=== PATIENT | female | born 1975 | race African-American/Black ===

== ENCOUNTER 2016-11-25 10:09 | Inpatient (IN) ==
--- NOTE | 2016-11-25 10:30 | Emergency Department Note ---
Jordon Hsieh Brooke, am scribing for, and in the presence of, Eze Singh MD 10:25 . Samantha Hsieh James D, MD, personally performed the services described in this documentation, ascribed by Clara Ruvalcaba in my presence, and it is both accurate and complete . Arrival - Arrival Chief Complaint: Neuro Stated Complaint: possible stroke/slurred speech ED Nursing Triage Note: Pt c/o hands drawing up and "tingling" all over since yesterday. Pt very anxious and will not sit still at traige. Mode of Arrival: Wheelchair Limitations: Altered Mental Status Source: Patient, RN Notes Reviewed Time Seen by Provider: 11/25/16 10:19 - History of Present Illness HPI Narrative: Patient is a 41 year old female, who will answer my questions, but triage reports her complaint is "hands drawing up and tingling" for the past two days. Patient is breathing heavily and diaphoretic. Patient has PMHx of HTN, DVT, asthma, and pulmonary embolism. At 1215 the patient began taking to me when she stated that she had to go "Pee" . The patient admits that she stopped taking her Xarelto last week "when her period came on". Onset (ago): day(s) (2) Consistency: constant Severity: mild Date of Last Menstrual Period: last wk Allergies/Adverse Reactions: Allergies Allergy/AdvReac Type Severity Reaction Status Date / Time No Known Allergies Allergy Unverified 09/18/16 09:58 Home Medications: Home Medications Medication Instructions Recorded Confirmed Type Allopurinol 100 mg PO DAILY 11/25/16 11/25/16 History Ferrous Sulfate 325 mg PO DAILY 11/25/16 11/25/16 History Furosemide Tab [Lasix Tab] 40 mg PO BID DIURETIC 11/25/16 11/25/16 History Potassium Chloride Cap/Tab [K Dur] 20 meq PO DAILY 11/25/16 11/25/16 History Rivaroxaban [Xarelto] 20 mg PO DAILY 11/25/16 11/25/16 History oxyCODONE/ACETAMINOPHEN 5-325 1 tablet PO TID 11/25/16 11/25/16 History [Percocet 5-325] Review of System - Review of System ROS unobtainable: other (Will not respond to questions) - Review of System Constitutional: Present: diaphoresis. Absent: fever Musculoskeletal: Present: other (hands "drawing up and tingling") Medical,Surgical,& Family Hx - Medical History Cardio: History of: Hypertension, Cardiovascular Problems (LLE DVT 2013) Respiratory: History of: Asthma, Pulmonary Embolism - Social History Smoking Status: Never smoker Exam Vital Signs: Vital Signs Temperature 97.3 F L 11/25/16 13:12 Pulse Rate 125 H 11/25/16 13:12 Respiratory Rate 22 11/25/16 13:12 Blood Pressure 129/77 11/25/16 13:12 O2 Sat by Pulse Oximetry 100 11/25/16 10:09 GENERAL: This is a well-nourished well-developed morbidly obese black female in no apparent distress. VITAL SIGNS: Reviewed HEENT: Head is atraumatic and normocephalic. Pupils are equal round react to light. Extraocular movements are intact. Oropharynx is benign with moist mucous membranes. NECK: Neck is soft and supple without tenderness. There are no masses. There is no lymphadenopathy. LUNGS: Lungs are clear to auscultation. Chest rises symmetrically. There is no chest wall tenderness. CV: Heart is regular rate and rhythm without murmurs rubs or gallops. ABDOMEN: Abdomen is soft, nontender to palpation. There are no abdominal abnormal masses palpated. There is no organomegaly. Bowel sounds are present and active. SKIN: Diaphoretic. No rash. EXTREMITIES: Patient has full range of motion without tenderness. There is no pedal edema. NEUROLOGIC: Awake. Cranial nerves II through XII are grossly intact. Will not cooperate with motor exam. Carpal pedal spasm is present. Deep tendon reflexes are 2+ and bilaterally equal. Course Course Narrative: Patient will be taken to the [facility] for EKOS. - Consultations Consultation #1: Discussed with hospitalist. Patient will be admitted to their service. Time: 12:27 Results - Labs CBC & BMP: 11/25/16 10:47 11/25/16 10:47 Lab Results: I have reviewed the patients labs Labs: Laboratory Tests 11/25/16 11:13 ABG pH 7.516 H ABG pCO2 36.7 ABG pO2 176.0 H ABG HCO3 30.3 H ABG Total CO2 27.3 H ABG O2 Saturation 99.3 ABG Base Excess 6.4 H - EKG EKG results: interpreted by ERMD - Impressions EKG: Sinus tachycardia with a rate of 112, nonspecific ST-T wave changes. Normal axis. - Diagnostic Findings Procedure: Chest x-ray: image reviewed by me (No infiltrates, no pleural effusions.), CT - chest: image reviewed by me, report reviewed by me (Bilateral pulmonary emboli. Right mainstem pulmonary embolus. Left lower lobe pulmonary embolus.) Disposition Clinical Impression: Pulmonary thromboembolism, Noncompliance with Xarelto, Morbid obesity, Microcytic anemia Case discussed with: patient Disposition: Still a Patient Condition: Stable Time of Disposition: 12:21
--- NOTE | 2016-11-25 10:51 | EKG Report ---
Stationary ECG Study [facility] ER Test Date: 11/25/2016 10:39:38 AM Pat Name: GIANCARLO SAM Department: Room: Gender: F Air Dispatcher: NOHELIA Hyman : 1975 Requested by: Eze Inman Order Number: [id number] Meghan MD: SHARIF SAM Intervals [place] Rate: 112 P: 56 [place]: 135 QRS: 14 QRSD: 75 T: 33 QT: 346 QTc: 412 Interpretive Statements SINUS TACHYCARDIA MODERATE ST DEPRESSION Electronically Signed On 11-25-16 16:33:35 CDT by SHARIF SAM [email or web address]
[2016-11-25 11:00] LABS: Basophils % 0.3 % (0.0-0.8); Eosinophils % 0.7 % (0.00-10.9); Hematocrit 28.7 VOL% (35.7-47.0); Hemoglobin 9.5 GM/DL (12.0-16.0); Immature Granulocytes % 0.3 %; Immature Granulocytes Absolute 0.01 #; Lymphocytes % 35.4 % (21.3-54.2); Mean Corpuscular HGB Conc 33.1 GM/DL (32-36); Mean Corpuscular Hemoglobin 26 PG (27-34); NRBC # 0.02 10*3/uL; Neutrophils # 1.8 10*3/uL (1.4-7.4); Neutrophils % 62.3 % (38.7-73.9); Platelet Count 127 T/CUMM (130-400); Red Blood Count 3.68 MC/CUMM (3.8-5.5); Red Cell Distribution Width 28.3 % (9.3-17.3); White Blood Count 2.9 T/CUMM (4-12)
[2016-11-25 11:18] LABS: ABG Base Excess 6.4 MMOL/L (-2.5-2.5); ABG HCO3 30.3 MMOL/L (20-26); ABG Oxygen Saturation 99.3 % (95-100); ABG PCO2 36.7 MM HG (35-48); ABG PH 7.516 (7.35-7.45); ABG TCO2 27.3 MMOL/L (23-27)
[2016-11-25 11:20] LABS: Hypochromasia 1+; Lymphocytes 33 % (20-55); Microcytosis 1+; Ovalocytes Few; Segmented Neutrophils 65 % (50-85); Total Cells Counted 100
[2016-11-25 11:21] LABS: Platelet Estimate Adequate; Target Cells Slight
[2016-11-25 11:22] LABS: INR 1.4; PT Patient Result 14.8 SECS; Partial Thromboplastin Time 29.4 SECS (0-40)
--- NOTE | 2016-11-25 11:23 | XRay Report ---
XR chest 1V portable Indication: Shortness of breath Comparison: Chest x-ray 10/26/2016 Technique: Portable AP chest was performed. Findings: The heart size appears within normal limits. Pulmonary vasculature demonstrates no specific abnormality. Hilar structures demonstrate fairly symmetric appearance. The lungs appear clear. Bones and soft tissues demonstrate no evidence of acute pathology. No change in surgical clips at the GE junction is suggested. Impression: 1. No evidence of acute pathology. 11/25/2016 11:20 AM PROCEDURE INTERPRETED AT [facility] DEPARTMENT OF RADIOLOGY Final Report Signed by: Dr. Scott Joyce
[2016-11-25 11:30] LABS: Calcium 6.5 MG/DL (8.5-10.1); Osmolality,Calculated 275.7 MOS/KG (273-304)
[2016-11-25] MEDS ORDERED: ENOXAPARIN 120 MG/0.8 ML SYRINGE SUBCUT STA (12:16)
--- NOTE | 2016-11-25 12:21 | CT Report ---
CT chest PE study Indication: Shortness of breath Comparison: None. Technique: CT of the chest was performed following the administration of intravenous contrast. In addition to multiple contiguous axial source images obtained from the thoracic inlet through the upper abdomen, coronal and sagittal MPR series were performed as were thin slab MIP reconstructions in the coronal and sagittal plane. The CT examination was performed using one or more of the following dose reduction techniques: Automatic exposure control, adjustment of the mA and kV according to patient size, or iterative reconstruction techniques. Findings: Pulmonary artery emboli are demonstrated within the distal aspect of the right main pulmonary artery extending into the right upper lobe lobar branch with additional nonoccluding tube occluding thrombus noted within the left lower lobe lobar pulmonary artery extending into multiple segmental branches. No other distinct emboli can be identified. There is no evidence of right ventricular strain. Moderate hiatal hernia is present. Multiple surgical clips are present at the GE junction. The aorta demonstrates normal 3 vessel arch anatomy. The heart size is borderline. No adenopathy is noted within the axilla, january, or mediastinum. Lungs are clear. Imaged bony structure of the chest is intact. Soft tissues and musculature of the chest wall as well as visualized portion of the upper abdomen demonstrate no evidence of acute pathology. Gallbladder is surgically absent. Impression: 1. Bilateral pulmonary artery emboli are present as detailed. These findings were discussed with Dr. Singh at 1217 hours, dated the exam. 2. Other nonacute findings are present as detailed. 11/25/2016 12:14 PM PROCEDURE INTERPRETED AT [facility] DEPARTMENT OF RADIOLOGY Final Report Signed by: Dr. Scott Joyce
[2016-11-25] MEDS ORDERED: ENOXAPARIN 120 MG/0.8 ML SYRINGE SUBCUT ONE (12:31)
[2016-11-25] MEDS ORDERED: POTASSIUM CHLORIDE 20 MEQ TABLET PO STA (12:31)
[2016-11-25 12:42] LABS: Barbiturates Screen,Urine Negative (Negative); Benzodiazepines Screen,Urine Negative (Negative); Cannabinoid Screen,Urine Negative (Negative); Opiate Screen,Urine Negative (Negative); Phencyclidine Screen,Urine Negative (Negative)
[2016-11-25] MEDS ORDERED: POTASSIUM CHLORIDE 20 MEQ TABLET PO ONE ×2 (12:51→21:00)
--- NOTE | 2016-11-25 13:09 | Ultrasound Report ---
US venous doppler LE BI Indication: Pulmonary artery embolus. Comparison: CT chest same date Technique: Using a transcutaneous probe, grayscale, spectral Doppler, and color Doppler images of the bilateral lower extremity venous structures were captured and stored. Grayscale images prior to and following compression were obtained. Interrogated venous structures include the bilateral common femoral vein, superficial femoral vein (proximal, mid, and distal), and popliteal vein. Findings: Thrombus is demonstrated within the left peroneal vein and propagates in a cephalad manner to involve the left popliteal vein. Otherwise, no thrombus is present within the lower extremities. the interrogated venous segments demonstrate presence of both color flow and spectral flow. Impression: 1. Thrombus within the left peroneal vein and popliteal vein as detailed. 11/25/2016 1:03 PM PROCEDURE INTERPRETED AT [facility] DEPARTMENT OF RADIOLOGY Final Report Signed by: Dr. Scott Joyce
[2016-11-25] MEDS ORDERED: ENOXAPARIN 30 MG/0.3 ML SYRINGE IV ONE (13:10)
[2016-11-25] MEDS ORDERED: guaiFENesin/DM ER 600-30 MG TABLET PO PRN (13:11)
[2016-11-25] MEDS ORDERED: DOCUSATE SODIUM 100 MG CAPSULE PO PRN (13:11)
[2016-11-25] MEDS ORDERED: diphenhydrAMINE CAP 25 MG CAPSULE PO PRN (13:11)
[2016-11-25] MEDS ORDERED: ACETAMINOPHEN 325 MG TABLET PO PRN (13:11)
[2016-11-25] MEDS ORDERED: ONDANSETRON 4 MG/2 ML VIAL IV PRN (13:11)
[2016-11-25] MEDS ORDERED: LORazepam 2 MG/1 ML VIAL IV PRN (13:15)
[2016-11-25] MEDS ORDERED: LORazepam 2 MG/1 ML VIAL ONE (13:52)
[2016-11-25] MEDS ORDERED: HEPARIN/NACL 0.9% 2 UNITS/ML 1,500 ML IV ONE (14:01)
[2016-11-25] MEDS ORDERED: HYDROmorphone 2 MG/1 ML VIAL ONE (14:01)
[2016-11-25] MEDS ORDERED: LIDOCAINE 1% 20 ML VIAL ONE (14:02)
[2016-11-25] MEDS ORDERED: MIDAZOLAM 2 MG/2 ML VIAL ONE (14:02)
[2016-11-25] MEDS ORDERED: HEPARIN 5,000 UNIT/1 ML VIAL ONE (14:02)
--- NOTE | 2016-11-25 14:05 | Cardiology Progress Note ---
Cardiology - PN: Subj Interval history: Cardiology consult 41-year-old woman with increasing shortness of breath and weakness. The patient is tachypneic and tachycardic. CT the chest shows bilateral pulmonary emboli. The patient is a history of right leg DVT 3 years ago and has been on Xarelto. She stopped it lab she has her periods, and she stopped the medication 1 week ago. Venous Doppler today shows mobile peroneal and popliteal vein DVT. EKG shows sinus tachycardia with preserved airways and ST- T wave changes. The patient has hypertension takes Lasix 40 mg twice daily. She also has iron deficiency anemia. Hemoglobin 9.5 MCV 78. She takes ferrous sulfate 325 mg daily. No history of diabetes. No history of stroke. Lifetime non-smoker. She has a rare social drinker only. She is 4 feet 11 inches tall 268 pounds. Weight is been stable. She sleeps on 2 pillows and has nocturia 2 or 3 times every night which is chronic. The patient does have restless legs and daytime sleepiness. She snores loudly. Obstructive sleep apnea suspected. Her mother had hypertension and diabetes and in her mid 60s. Her father is 66 years old and has hypertension and emphysema. Her sister is 46 and has hypertension. Her brother is 34 and has hypertension and diabetes. Another brother from colon cancer age 44. Surgeries include 4, laparoscopically cystectomy and left arm surgery. No allergies. Initial lab data White count 2.9 hemoglobin 9.5 hematocrit 28.7 MCV 78 Sodium 138 potassium 3.0 chloride 97 CO2 28 BUN 6 creatinine 1.10 glucose 154 Negative urine drug screen O2 sat is 96% on 2 L cannula. Respirations are 24. The pulse is 120. Blood pressure 130 /92. She is anxious and in respiratory distress. Flat neck veins. No carotid bruit. Decreased breath sounds but no wheezing or rales. Rhythm is tachycardic. No murmur or rub. Abdomen obese soft benign. Femoral pulses 2+ without bruits of pulses are 2+ no edema Impression Bilateral pulmonary emboli with tachypnea tachycardia and dilated right ventricle by CTA History of DVT right leg 3 years ago on Xarelto. Patient stopped Xarelto 1 week ago for her period. Obstructive sleep apnea suspected Hypertension Hypokalemia 3.0 due to diuretics Iron deficiency anemia MCV 78 hemoglobin 9.5 patient is taking ferrous sulfate 325 mg daily Morbid obesity 4 feet 11 inches tall, 268 pounds Status post laparoscopically cholecystectomy History right leg DVT 2013 Left leg DVT involving the peroneal and popliteal veins today Plan EKOS bilateral pulmonary catheter with TPA infusion. Procedure, risk benefit reviewed with patient and with her sister with nurse Rudolph present for the entire discussion. All questions answered. She agrees to proceed as outlined. Replace potassium Echo Doppler Supplemental O2 as needed Will need outpatient sleep study evaluation Exam (Progress Note) - Constitutional Vitals: Period Temp Pulse Resp BP Sys/Masterson Pulse Ox Last 24 Hr 97.3 F 125 22 129/77 Result/EKG - Labs CBC & BMP: 11/25/16 10:47 11/25/16 10:47 Quality Measures - VTE Contraindication to Mechanical VTE Prophylaxis: Current Diagnosis of DVT - Stroke Onset of Symptoms Date: 11/25/16
--- NOTE | 2016-11-25 14:18 | Hospitalist History & Physical ---
Assessment and Plan - Time spent with patient Time spent with patient: Greater than 30 minutes (1) Pancytopenia Status: Acute Assessment and plan: Ms. Del Cid is a 5-year-old morbidly obese -Turkmen female with history of hypertension, anxiety, and DVT on Xarelto admitted by the hospitalist service with bilateral pulmonary embolisms and new left lower extremity DVT. Patient is tachycardic and tachypneic. She has received 1 dose of weight-based Lovenox and 30 mg of IV Lovenox have been ordered preprocedure. Dr. macias has already seen and examined patient and will be taking her to the [facility] for Ekos. Patient will go to the ICU following procedure. Will restart her home medicines and continue to watch her response to therapy. Dr. Carpio has seen and examined patient and further recommendations to follow. Current Visit: Yes (2) Hypertension Status: Acute Current Visit: Yes (3) Hyperglycemia Status: Acute Current Visit: Yes (4) Left leg DVT Status: Acute Current Visit: Yes (5) Anxiety Status: Acute Current Visit: Yes (6) Pulmonary thromboembolism Status: Acute Current Visit: Yes (7) Morbid obesity Status: Acute Current Visit: Yes (8) Microcytic anemia Status: Acute Current Visit: Yes History of Present Illness Chief complaint: Shortness of breath History of present illness: Ms. Del Cid is a 41 year old female with history of hypertension, iron deficiency anemia, gout, and lower extremity DVT on Xarelto presenting to the ED with numbness and tingling of bilateral hands and shortness of breath. Patient states she has been taking Xarelto for 3 years for a lower extremity DVT that she states was in her right leg. Dr. Guthrie is her PCP and has been managing this. Patient was just here in the ED in September with a gouty flareup and Dopplers at that time showed no DVTs. Patient states off and on for the last week she has had intermittent shortness of breath but the numbness and tingling in her hands started last night. She feels like she has been hyperventilating off and on. She also states for the last few weeks she has had intermittent swelling and pain in the left lower extremity. Patient states she stopped her Xarelto last week because she had started her cycle. She states she does this every month because the Xarelto causes heavy bleeding. Patient complains of intermittent headaches, two-pillow orthopnea, and snoring. Patient denies chest pain, dysphagia, abdominal pain, constipation or diarrhea. Patient is tachycardic and tachypneic with stable blood pressure. WBCs 2.9, RBC 3.68, platelets 127, creatinine 1.1, glucose 154, and her tox screen is negative. CT of the chest shows bilateral pulmonary artery emboli and venous Doppler shows a thrombus within the within the left peroneal vein and popliteal vein. Patient's case was discussed with Dr. Singh the ED physician and Dr. Carpio the admitting hospitalist and it was agreed patient would be admitted for further evaluation and treatment. Home Medications Medication Instructions Recorded Confirmed Type Allopurinol 100 mg PO DAILY 11/25/16 11/25/16 History Ferrous Sulfate 325 mg PO DAILY 11/25/16 11/25/16 History Furosemide Tab [Lasix Tab] 40 mg PO BID DIURETIC 11/25/16 11/25/16 History Potassium Chloride Cap/Tab [K Dur] 20 meq PO DAILY 11/25/16 11/25/16 History Rivaroxaban [Xarelto] 20 mg PO DAILY 11/25/16 11/25/16 History oxyCODONE/ACETAMINOPHEN 5-325 1 tablet PO TID 11/25/16 11/25/16 History [Percocet 5-325] Allergies Allergy/AdvReac Type Severity Reaction Status Date / Time No Known Allergies Allergy Unverified 09/18/16 09:58 Medical,Surgical,& Family Hx - Medical History Cardio: History of: Hypertension, Cardiovascular Problems (LLE DVT 2013) Respiratory: History of: Asthma, Pulmonary Embolism - Surgical History Abdominal Surgeries: Surgical HX of: Cholecystectomy Reproductive Surgeries: Surgical HX of;: Section - Family History Family History: Reports;: Family Diabetes, Family Heart Disease - Social History Smoking Status: Never smoker Frequency of Alcohol Use: Rarely Type of Drug Use: None Marital Status: Single Lives With:: Children Functional capacity: independent ambulation Review of systems: Complete 10 system review of systems was obtained and pertinent positives and negatives per HPI Exam - Constitutional Vitals: Period Temp Pulse Resp BP Sys/Masterson Pulse Ox Last 24 Hr 97.3 F-97.3 F 125-125 22-22 129-129/77-97 100 Exam: Constitutional System: Moderate distress. No tremulousness. Head: Normocephalic, atraumatic. Ears, Nose and Throat System: No evidence of Otitis or Mastoiditis. No epistaxis or discharge Eyes System: Pupils equal, round, and reactive. Extraocular muscles intact. Neck: Supple, without adenopathy, No jugular venous distention. No thyromegaly, neck mass, or prior surgery apparent. Respiratory System: Chest clear to auscultation. Cardiovascular System: Heart with tachycardic rate and rhythm. No murmur. GI System: Abdomen soft, nontender. Normo active bowel sounds present. Musculoskeletal System: limbs with no pedal edema. Inability to palpate due to soft tissue distal pulses. Neurological System: No discernable sensory deficit. No aphasia Psychiatric System: Conversation is rational, patient is visibly upset and crying Results - Labs CBC & BMP: 11/25/16 10:47 11/25/16 10:47 Lab Results: I have reviewed the past 24 hour labs - EKG EKG results: sinus rhythm EKG shows: tachycardia - Impressions Moderate ST depression - Diagnostic Findings Procedure: Chest x-ray: report reviewed by me (No acute pathology), CT - chest: report reviewed by me (Bilateral pulmonary artery emboli), Ultrasound: report reviewed by me (Thrombus within the left peroneal vein and popliteal vein) Quality Measures - VTE Contraindication to Mechanical VTE Prophylaxis: Current Diagnosis of DVT - Stroke Onset of Symptoms Date: 11/25/16
--- NOTE | 2016-11-25 14:54 | History and Physical Update ---
Sedation H&P Update - History and Physical H&P was reviewed, the patient examined and there: are no changes in the patients condition since last H&P was completed. - Dictation Physical: refer to H&P completed by admitting physician - Physical Exam Mental Status: alert and oriented Heart: regular rate and rhythm Lung: clear to auscultation Abdomen: within normal limits Vitals: within normal limits - Sedation Plan for Sedation: moderate Patient Consent: Procedure disscussed with patient and patinet has consented., Risks and benefits were discussed with patient,including infection,, bleeding, injury to surrounding structures, seizure, temporary nerve, Patient understands and accepts potential risks/benefits and agrees to, proceed. ASA Class: II Airway Assessment: Class II: Soft palate, uvula, fauces visible
[2016-11-25] MEDS ORDERED: ALTEPLASE 2 MG VIAL ONE (14:56)
[2016-11-25] MEDS ORDERED: SODIUM CHLORIDE 0.9% 1,000 ML IV SCH ×2 (15:00)
[2016-11-25] MEDS ORDERED: ALTEPLASE 12 MG in SODIUM CHLORIDE 0.9% 240 ML INTRACATH SCH (15:00)
[2016-11-25] MEDS ORDERED: ALTEPLASE 12 MG in SODIUM CHLORIDE 0.9% 240 ML IV SCH (15:00)
--- NOTE | 2016-11-25 15:07 | Event Note ---
Event note Ekos bilateral pulmonary artery catheters with localized TPA infusion Pre-op diagnosis bilateral pulmonary emboli with tachycardia, tachypnea, dilated right ventricle Postop diagnosis same. Description of procedure The patient has a history of right leg DVT 2013 and has been on Xarelto. She stopped Xarelto 1 week ago. SHe presented with acute shortness of breath and exercise intolerance. CTA chest showed bilateral pulmonary emboli and a mobile DVT in the left peroneal and popliteal veins. The right groin was prepped and draped in sterile fashion and local anesthesia was achieved by infiltration 1% Xylocaine. Using a Cook needle the right femoral vein was cannulated and 2 separate venous sheaths were inserted. Over a long exchange guidewire a pigtail catheter introduced and advanced out into the right pulmonary artery. The catheter exchanged for a 6 Maltese EKOS catheter and the ultrasonic cath was then introduced into the right pulmonary artery. The side ports were connected to normal saline coolant and TPA infusion. Using the pigtail catheter and the long exchange wire the left pulmonary artery was then cannulated and a EKOS catheter was placed into the left pulmonary artery followed by the ultrasonic catheter. The side ports were again connected to coolant and TPA infusion. Both catheters were in excellent position. The venous lines were sutured in place. Blood pressure 113/82 O2 sat is 99 on 6 L cannula and the pulse is 89 in sinus at the conclusion of the procedure. The patient was transported to CCU in guarded condition. Plan 12 hour TPA infusion Routine blood work ordered Restart Xarelto tomorrow Findings and plan discussed with her sister Sravanthi and several family members.
[2016-11-25] MEDS ORDERED: ONDANSETRON 4 MG/2 ML VIAL ONE (15:27)
[2016-11-25] MEDS: FERROUS SULFATE 325 MG TABLET PO SCH (16:14)
[2016-11-25] MEDS: SODIUM CHLORIDE 0.9% 1,000 ML IV SCH ×2 (16:14→23:52)
[2016-11-25] MEDS: POTASSIUM CHLORIDE 20 MEQ TABLET PO SCH (16:14)
[2016-11-25] MEDS: ALLOPURINOL 100 MG TABLET PO SCH (16:14)
[2016-11-25] MEDS: PANTOPRAZOLE 40 MG TABLET PO SCH (16:14)
[2016-11-25] MEDS: SODIUM CHLORIDE 0.45% 1,000 ML IV SCH (16:15)
--- NOTE | 2016-11-25 16:25 | ECHO Report ---
Cindi Del Cid Exam Date: 11/25/2016 13:36 Referring Physician: Technologist: Cira Novak EWELINA Age: 41 Ht (in): 69 Wt (lb): 280 Gender: F Exam Location: [facility] Echo Indications: Bilateral PE, Essential (primary) hypertension BP: 133 / 87 HR: 82 Rhythm: Sinus Technical Quality: Fair IMPRESSIONS EF 55-60 % . Grade I/IV diastolic dysfunction (abnormal relaxation filling pattern), normal to mildly elevated filling pressures. Mildly increased right ventricular size. The right atrium is mildly enlarged. The left atrium is normal in size. Morphologically normal mitral valve. No mitral valve regurgitation. The aortic valve is trileaflet and has normal motion. Trace aortic valve regurgitation. Mild tricuspid valve regurgitation. [id number]. Trace pulmonary valve regurgitation. Normal pericardium without effusion. Normal ascending aorta dimension. MEASUREMENTS (Male / Female) Normal Values 2D ECHO LV Diastolic Diameter PLAX 4.2 cm 4.2 - 5.9 / 3.9 - 5.3 cm LV Systolic Diameter PLAX 3.1 cm LV Fractional Shortening PLAX 26.1 % IVS Diastolic Thickness 0.8 cm 0.6 - 1.0 / 0.6 - 0.9 cm LVPW Diastolic Thickness 0.8 cm 0.6 - 1.0 / 0.6 - 0.9 cm RV Internal Dim ED PLAX 2.6 cm Aortic Root Diameter 3.2 cm LA Systolic Diameter LX 3.0 cm 3.0 - 4.0 / 2.7 - 3.8 cm FINDINGS Left Ventricle EF 55-60 % . Grade I/IV diastolic dysfunction (abnormal relaxation filling pattern), normal to mildly elevated filling pressures. Right Ventricle Mildly increased right ventricular size. Right Atrium The right atrium is mildly enlarged. Left Atrium The left atrium is normal in size. Mitral Valve Morphologically normal mitral valve. No mitral valve regurgitation. Aortic Valve The aortic valve is trileaflet and has normal motion. Trace aortic valve regurgitation. Tricuspid Valve Morphologically normal tricuspid valve. Mild tricuspid valve regurgitation. [id number]. Pulmonic Valve Morphologically normal pulmonic valve. Trace pulmonary valve regurgitation. Pericardium Normal pericardium without effusion. Aorta Normal ascending aorta dimension. Tommie Latricia (Electronically Signed) Final Date: 25 Nov 2016 16:24
[2016-11-25] MEDS: PROMETHAZINE 25 MG/1 ML VIAL IM PRN (16:43)
[2016-11-25] MEDS: oxyCODONE/ACETAMINOPHEN 5-325 MG TABLET PO SCH ×2 (17:15→20:14)
[2016-11-25] MEDS: FUROSEMIDE 40 MG TABLET PO SCH (17:17)
[2016-11-25 17:45] LABS: INR 1.3; PT Patient Result 14.4 SECS; Partial Thromboplastin Time 34.6 SECS (0-40)
[2016-11-25] MEDS ORDERED: FERROUS SULFATE 325 MG TABLET PO ONE (21:00)
[2016-11-25] MEDS ORDERED: FUROSEMIDE 40 MG TABLET PO ONE (21:00)
[2016-11-26] MEDS ORDERED: SODIUM CHLORIDE 0.45% 1,000 ML IV SCH (02:00)
[2016-11-26] MEDS: SODIUM CHLORIDE 0.45% 1,000 ML IV SCH (02:18)
[2016-11-26 04:33] LABS: Basophils % 0.5 % (0.0-0.8); Hematocrit 24.3 VOL% (35.7-47.0); Lymphocytes # 0.9 10*3/uL (1.4-4.0); Lymphocytes % 42.7 % (21.3-54.2); Mean Corpuscular HGB Conc 32.9 GM/DL (32-36); Mean Corpuscular Hemoglobin 26 PG (27-34); Mean Corpuscular Volume 78.9 FL (87-102); Mean Platelet Volume 10.3 FL (9.6-12.0); Neutrophils # 1.1 10*3/uL (1.4-7.4); Neutrophils % 53.8 % (38.7-73.9); Red Blood Count 3.08 MC/CUMM (3.8-5.5); Red Cell Distribution Width 28.1 % (9.3-17.3)
[2016-11-26 04:37] LABS: Platelet Count 74 T/CUMM (130-400)
[2016-11-26 04:43] LABS: INR 1.2; PT Patient Result 13.1 SECS
[2016-11-26 04:46] LABS: Partial Thromboplastin Time 32.4 SECS (0-40)
[2016-11-26 05:01] LABS: Albumin 2.8 G/DL (3.4-5.0); Magnesium 0.9 MG/DL (1.8-2.4); Osmolality,Calculated 282.8 MOS/KG (273-304); Potassium 2.8 MMOL/L (3.5-5.1); Total Protein 6.3 G/DL (6.4-8.3)
[2016-11-26 05:15] LABS: Calcium 5.5 MG/DL (8.5-10.1)
[2016-11-26] MEDS ORDERED: CALCIUM GLUCONATE 2,000 MG in SODIUM CHLORIDE 0.9% 100 ML IV ONE (05:20)
[2016-11-26 05:21] LABS: Eosinophils 3 % (0-10); Hypochromasia 1+; Lymphocytes 46 % (20-55); Microcytosis 1+; Nucleated Red Blood Cells 1 (0-5); Segmented Neutrophils 50 % (50-85); Total Cells Counted 100
[2016-11-26 05:22] LABS: Platelet Estimate Decreased; Target Cells Slight; Tear Drop Cells Slight
[2016-11-26] MEDS: POTASSIUM CHLORIDE 20 MEQ TABLET PO PRN ×4 (05:34→16:38)
[2016-11-26] MEDS: SODIUM CHLORIDE 0.9% 1,000 ML IV SCH ×6 (07:15→17:51)
[2016-11-26] MEDS ORDERED: MAGNESIUM SULF INJ 3 GM in SODIUM CHLORIDE 0.9% 100 ML IV ONE (08:57)
--- NOTE | 2016-11-26 09:10 | Hospitalist Progress Note ---
Assessment and Plan - Time spent with patient Time spent with patient: Less than 30 minutes (1) Pulmonary thromboembolism Status: Acute Assessment and plan: Patient was admitted with bilateral pulmonary thromboemboli was seen by Dr. Rome who took her to the [facility] for EKOS therapy. She is clinically improved. Will defer management to his expertise. Current Visit: Yes (2) Pancytopenia Status: Acute Assessment and plan: Patient is noted to be pancytopenic. Will consult hematology to assist. Current Visit: Yes Hospitalist: Subjective Interval history: Patient was admitted yesterday with bilateral pulmonary thromboemboli and is status post EKOS therapy. She denies any chest pain or shortness of breath this morning. Exam - Constitutional Vitals: Period Temp Pulse Resp BP Sys/Masterson Pulse Ox Last 24 Hr 96.3 F-98.4 F 84-125 13-87 95-129/56-87 97-100 General appearance: no acute distress - Head Head exam: Present: normocephalic, atraumatic - Eye Eye exam: Present: EOMI Pupils: Present: GLORIA - ENT ENT exam: Present: normal exam - Neck Neck exam: Present: normal inspection - Respiratory Respiratory exam: Present: clear to auscultation bilaterally. Absent: rales, rhonchi, stridor, wheezes - Cardiovascular Cardiovascular exam: Present: regular rate and rhythm. Absent: tachycardia - GI/Abdominal GI/Abdominal exam: Present: normal bowel sounds, soft. Absent: mass, tenderness , rebound - Extremities Exam Extremities exam: Absent: calf tenderness, edema - Neurological Exam Neurological exam: Present: alert, oriented X3, CN II-XII intact. Absent: motor sensory deficit - Psychiatric Psychiatric exam: Present: normal affect, normal mood. Absent: agitated, anxious - Skin Skin exam: Present: warm, dry. Absent: rash Results - Labs CBC & BMP: 11/26/16 04:19 11/26/16 04:19 Lab Results: I have reviewed the past 24 hour labs Quality Measures - VTE Contraindication to Mechanical VTE Prophylaxis: Current Diagnosis of DVT - Stroke Onset of Symptoms Date: 11/25/16
[2016-11-26] MEDS: PROMETHAZINE 25 MG/1 ML VIAL IM PRN (09:11)
--- NOTE | 2016-11-26 09:14 | Pulmonology Consult Note ---
History of Present Illness Chief complaint: Dyspnea and tachycardia History of present illness: Ms. Del Cid is a 41 year old female who has a history of DVT in the past about 3 years ago. She was started on anticoagulants at [facility] during that hospitalization. She relates that she also had a filter placed. She has been on Xarelto since that time. She has had excessive periods and usually stops to Xarelto during the time of her periods. 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 She had had a negative venous Doppler 2 months ago in the ER when she came in with leg pain. She has been admitted to the CCU. Dr. Rome did an EKOS TPA infusion. She is about to be started back on Xarelto. She has problems with anemia. Reviewing her lab appears that she has a pancytopenia. She does have excessive menstrual periods, she relates. Her youngest child is 8 years old she has 4 children and has no plans for any further children. I am unable to get in the assessment plan portion of the electronic health record so I will list my impressions here: 1. Bilateral pulmonary emboli with mild pulmonary hypertension. Agree with lifelong anticoagulants. This is probably due to noncompliance with Xarelto as the patient stopped it during her periods. She relates that she already has a filter in place. One would wonder how she had the pulmonary emboli but she may have developed collaterals in 3 years time. We will get an abdominal film done to be sure the filter is in the proper location. Dr. Rome was able to do a right heart cath from the right groin without difficulty. This would bring the question up as to whether there is an IVC filter in place. 2. Pancytopenia. Her white count is in the 2000s, platelet count has dropped below 100,000, and hematocrit is 28. Her MCV is low. Certainly she could have iron deficiency anemia related to excessive menstrual periods, however the pancytopenia suggests she may have another hematologic disorder causing her anemia. Recommend getting hematology to see her in the morning. 3. Morbid obesity with suspected obstructive sleep apnea. This can be evaluated later. 4. hypertension, essential. Stable on current medications. Home Medications Medication Instructions Recorded Confirmed Type Allopurinol 100 mg PO DAILY 11/25/16 11/25/16 History Ferrous Sulfate 325 mg PO DAILY 11/25/16 11/25/16 History Furosemide Tab [Lasix Tab] 40 mg PO BID DIURETIC 11/25/16 11/25/16 History Potassium Chloride Cap/Tab [K Dur] 20 meq PO DAILY 11/25/16 11/25/16 History Rivaroxaban [Xarelto] 20 mg PO DAILY 11/25/16 11/25/16 History oxyCODONE/ACETAMINOPHEN 5-325 1 tablet PO TID 11/25/16 11/25/16 History [Percocet 5-325] Allergies Allergy/AdvReac Type Severity Reaction Status Date / Time No Known Allergies Allergy Unverified 09/18/16 09:58 12 point system: reviewed and no additional remarkable complaints except as stated - Constitutional Constitutional: Present: weight gain - Cardiovascular Cardiovascular: Present: dyspnea, dyspnea on exertion, edema, palpitations - Respiratory Respiratory: Present: dyspnea, dyspnea on exertion - Genitourinary Genitourinary: Present: abnormal vaginal bleeding (She feels her periods are excessive when she is on Xarelto) - Hematologic/Lymphatic Hematologic/Lymphatic: Present: other (History of anemia) Exam (Pulmonay) H&P - Constitutional Vitals: Period Temp Pulse Resp BP Sys/Masterson Pulse Ox Last 24 Hr 96.3 F-98.4 F 84-125 13-87 95-129/56-87 97-100 Exam: Vital signs normal. Oxygen saturation 98% on nasal oxygen. Pupils react to light. Throat is clear. Neck supple no bruits. Chest is clear equal breath sounds. Heart normal rate and rhythm no murmurs no rubs no gallops. Abdomen soft nontender no masses. Extremities no clubbing cyanosis or edema. Calves nontender. Medical,Surgical,& Family Hx - Medical History Cardio: History of: Hypertension, Cardiovascular Problems (LLE DVT 2013) Psychological: History of: Anxiety Disorders, Depression No history of: Bipolar Disorder, Schizophrenia Neurology: History of: Migraine Endocrine: History of: Dyslipidemia No history of: Diabetes Mellitus (IDDM), Diabetes Mellitus (NIDDM), Thyroid Disorder, Endocrine Cancer Respiratory: History of: Asthma, Pulmonary Embolism Genitourinary: History of: Bladder Problem (Urinary frequency) - Surgical History Abdominal Surgeries: Surgical HX of: Cholecystectomy Reproductive Surgeries: Surgical HX of;: Section, Tubal Ligation - Family History Family History: Reports;: Family Diabetes, Family Heart Disease - Social History Smoking Status: Never smoker Frequency of Alcohol Use: Rarely Type of Drug Use: None Results - Labs CBC & BMP: 11/26/16 04:19 11/26/16 04:19 Lab Results: I have reviewed the past 24 hour labs - Diagnostic Findings Procedure: Chest x-ray: image reviewed by me (Chest x-ray is normal), CT - chest : image reviewed by me (PE protocol was done and shows bilateral pulmonary emboli.), Ultrasound: image reviewed by me (Venous Doppler showed DVT in the left leg.) Quality Measures - VTE Contraindication to Mechanical VTE Prophylaxis: Current Diagnosis of DVT - Stroke Onset of Symptoms Date: 11/25/16
--- NOTE | 2016-11-26 09:30 | Cardiology Progress Note ---
Cardiology - PN: Subj Interval history: Cardiology note Day 1 status post EKOS for bilateral pulmonary emboli. Telemetry shows sinus rhythm in the 80s Blood pressure 114/80 O2 sat 90% on 3 L cannula Regular rhythm no murmur or gallop Decreased breath sounds but clear Abdomen soft benign. I pulled the venous lines and held pressure for 30 minutes and applied a sandbag and pressure dressing Initial CBC showed white count 2.9 hemoglobin 9.5 MCV 78 and platelet count 127 She received Lovenox in the ER yesterday followed by localized TPA infusion White count today is 2.0 hemoglobin 8.0 hematocrit 24.3 MCV 78 and platelet count 74,000 Sodium 144 potassium 2.8 chloride 101 CO2 31 BUN 7 creatinine 0.90 BNP 2 Magnesium 0.9 calcium 5.5 Impression Bilateral pulmonary emboli, status post EKOS procedure Left leg DVT History of right leg DVT 3 years ago at [place]. Patient has been on Xarelto since that time. She stops Xarelto for her periods. And has been off Xarelto for the past week. Patient states her cycles are every month on a regular basis and that she bleeds for 3 days, usually only 1 day heavy. Hypokalemia hypomagnesemia hypocalcemia Morbid obesity 4 feet 11 inches tall, 268 pounds Status post laparoscopically cholecystectomy Hypertension Obstructive sleep apnea suspected Pancytopenia Plan Consult Dr. Tang. Replace electrolytes Consult hematology Sandbag and bedrest for now Restart Xarelto later today Exam (Progress Note) - Constitutional Vitals: Period Temp Pulse Resp BP Sys/Masterson Pulse Ox Last 24 Hr 96.3 F-98.4 F 84-125 13-87 95-129/56-87 97-100 Result/EKG - Labs CBC & BMP: 11/26/16 04:19 11/26/16 04:19 Labs: Laboratory Results - last 24 hr 11/25/16 11/26/16 11/26/16 17:26 04:19 04:19 WBC RBC Hgb Hct MCV MCH MCHC RDW Plt Count MPV Neut % (Auto) Lymph % (Auto) [place] % (Auto) Eos % (Auto) Baso % (Auto) Neut # (Auto) Lymph # (Auto) [place] # (Auto) Eos # (Auto) Baso # (Auto) Total Counted Immature Gran % Nucleated RBC % Immature Gran # Segmented Neutrophils Lymphocytes Monocytes Eosinophils Nucleated RBCs Nucleated RBCs # Platelet Estimate Hypochromasia Microcytosis Target Cells Tear Drop Cells INR 1.3 1.2 PT Patient/Control Mix 14.4 13.1 Fibrinogen 296 243 Circ Anticoag PTT 34.6 32.4 Sodium Potassium Chloride Carbon Dioxide Anion Gap BUN Creatinine GFR Calculation BUN/Creatinine Ratio Glucose Calculated Osmolality Calcium Magnesium Total Bilirubin AST ALT Alkaline Phosphatase Total Protein Albumin Globulin Albumin/Globulin Ratio 11/26/16 11/26/16 04:19 04:19 WBC 2.0 L D RBC 3.08 L Hgb 8.0 L Hct 24.3 L MCV 78.9 L MCH 26 L MCHC 32.9 RDW 28.1 H Plt Count 74 L D MPV 10.3 Neut % (Auto) 53.8 Lymph % (Auto) 42.7 [place] % (Auto) 1.0 L Eos % (Auto) 2.0 Baso % (Auto) 0.5 Neut # (Auto) 1.1 L Lymph # (Auto) 0.9 L [place] # (Auto) 0.0 L Eos # (Auto) 0.0 Baso # (Auto) 0.0 Total Counted 100 Immature Gran % 0.0 Nucleated RBC % 0.0 Immature Gran # 0.00 Segmented Neutrophils 50 Lymphocytes 46 Monocytes 1 L Eosinophils 3 Nucleated RBCs 1 Nucleated RBCs # 0.00 Platelet Estimate Decreased Hypochromasia 1+ Microcytosis 1+ Target Cells Slight Tear Drop Cells Slight INR PT Patient/Control Mix Fibrinogen Circ Anticoag PTT Sodium 144 Potassium 2.8 L Chloride 101 Carbon Dioxide 31 Anion Gap 14.8 BUN 7 Creatinine 0.90 GFR Calculation 113 BUN/Creatinine Ratio 7.00 Glucose 85 Calculated Osmolality 282.8 Calcium 5.5 L* Magnesium 0.9 L Total Bilirubin 1.00 AST 95 H ALT 30 Alkaline Phosphatase 154 H Total Protein 6.3 L Albumin 2.8 L Globulin 3.5 Albumin/Globulin Ratio 0.8 L Quality Measures - VTE Contraindication to Mechanical VTE Prophylaxis: Current Diagnosis of DVT - Stroke Onset of Symptoms Date: 11/25/16
[2016-11-26] MEDS: oxyCODONE/ACETAMINOPHEN 5-325 MG TABLET PO SCH ×3 (10:02→21:17)
[2016-11-26] MEDS: PANTOPRAZOLE 40 MG TABLET PO SCH (10:03)
[2016-11-26] MEDS: FUROSEMIDE 40 MG TABLET PO SCH ×2 (10:03→16:38)
[2016-11-26] MEDS: ALLOPURINOL 100 MG TABLET PO SCH (10:03)
[2016-11-26] MEDS: POTASSIUM CHLORIDE 20 MEQ TABLET PO SCH (10:03)
[2016-11-26] MEDS: FERROUS SULFATE 325 MG TABLET PO SCH (10:03)
[2016-11-26 10:24] LABS: Eosinophils # 0.1 10*3/uL (0.0-0.87); Eosinophils % 2.6 % (0.00-10.9); Immature Granulocytes % 0.5 %; Immature Granulocytes Absolute 0.01 #; Lymphocytes # 0.7 10*3/uL (1.4-4.0); Lymphocytes % 36.9 % (21.3-54.2); Mean Corpuscular Hemoglobin 26 PG (27-34); Mean Corpuscular Volume 81.7 FL (87-102); Monocytes % 2.1 % (1.7-12.7); Neutrophils # 1.1 10*3/uL (1.4-7.4); Neutrophils % 57.9 % (38.7-73.9); Platelet Count 64 T/CUMM (130-400); Red Blood Count 3.06 MC/CUMM (3.8-5.5); Red Cell Distribution Width 28.6 % (9.3-17.3)
[2016-11-26 10:49] LABS: Hypochromasia 1+; Lymphocytes 38 % (20-55); Segmented Neutrophils 61 % (50-85); Total Cells Counted 100
[2016-11-26 10:50] LABS: Microcytosis 1+; Platelet Estimate Decreased; Target Cells Slight
[2016-11-26 10:51] LABS: Ovalocytes Few; Tear Drop Cells Slight
[2016-11-26 11:14] LABS: Vitamin B12 506 PG/ML (211-911)
--- NOTE | 2016-11-26 11:35 | XRay Report ---
XR KUB Indication: History of IVC filter. Comparison: None. Technique: Supine AP image of the abdomen was obtained. Findings: Findings compatible given history. Tip of the filter lies at superior endplate of L2. Filter is tilted to the right approximately 30 degrees from vertical. Additional surgical clips at the GE junction and right upper quadrant demonstrated. The bowel gas pattern demonstrates no significant abnormality. Impression: 1. IVC filter is present as detailed. No active process is otherwise suggested. 11/26/2016 11:31 AM PROCEDURE INTERPRETED AT [facility] DEPARTMENT OF RADIOLOGY Final Report Signed by: Dr. Scott Joyce
[2016-11-26 11:37] LABS: Sedimentation Rate-Westergren 41 MM/HR (0-20)
--- NOTE | 2016-11-26 13:49 | Oncology Consult Note ---
History of Present Illness History of present illness: Ms. Del Cid is a 41 year old female who was admitted with pulmonary emboli and underwent treatment with TPA on November 25. She had pancytopenia on admission that was worse today. Her white cell count was 2900 with a hemoglobin of 9.5 and a platelet count of 127,000 on the morning of November 25. This morning, her white cell count 2000 with a hemoglobin of 8.0 and a platelet count that on one checked was 74,000 and over another 64,000. She has had a normal INR on 3 separate occasions, being 1.4, 1.3 and 1.2. She also has had a normal fibrinogen on November 25 296 and on November 26 at 7:59 AM it was 243. Lab work drawn on the morning of November 26 includes slightly high AST of 95 with an alkaline phosphatase of 154, a low serum albumin of 2.8, a normal B12 level 506 and a low folic acid level of 2.0. In addition, she had a low potassium of 2.8 and a low serum calcium of 5.5. A drug screen is negative. She has been on Xarelto as well as allopurinol, both of which can cause lowering of 1 or more of the blood counts Past medical history: She has no known allergies. Home Medications Medication Instructions Recorded Confirmed Type Allopurinol 100 mg PO DAILY 11/25/16 11/25/16 History Ferrous Sulfate 325 mg PO DAILY 11/25/16 11/25/16 History Furosemide Tab [Lasix Tab] 40 mg PO BID DIURETIC 11/25/16 11/25/16 History Potassium Chloride Cap/Tab [K Dur] 20 meq PO DAILY 11/25/16 11/25/16 History Rivaroxaban [Xarelto] 20 mg PO DAILY 11/25/16 11/25/16 History oxyCODONE/ACETAMINOPHEN 5-325 1 tablet PO TID 11/25/16 11/25/16 History [Percocet 5-325] Current medical problems have been outlined by Dr. Rome and they include: Bilateral pulmonary emboli, status post EKOS procedure Left leg DVT History of right leg DVT 3 years ago at [place]. Patient has been on Xarelto since that time. She stops Xarelto for her periods. And has been off Xarelto for the past week. Patient states her cycles are every month on a regular basis and that she bleeds for 3 days, usually only 1 day heavy. Hypokalemia hypomagnesemia hypocalcemia Morbid obesity 4 feet 11 inches tall, 268 pounds Status post laparoscopically cholecystectomy Hypertension Obstructive sleep apnea suspected Pancytopenia Past medical history is also positive for cholecystectomy in the past and she has had sections in the past. She has a history of gout and says that she had a gouty attack last week. Family history is negative for blood dyscrasias or bleeding disorders as far as she knows but she is not absolutely certain of this. There have been family members who had clotting problems such as coronary artery disease but to her knowledge no one has had hemophilia or any type of "free bleeding". It is positive for diabetes and heart disease. Social history: She rarely uses alcohol and has never smoked. Review of systems: Constitutional: Positive for obesity Eyes: Negative for significant eye disease or visual abnormality ENT: Negative for chronic bleeding gums or recurrent epistaxis. She does say that she has bled for as long as 2 days after having a tooth pulled but never had to go to the emergency room for it. Pulmonary: Negative for hemoptysis but obviously positive for dyspnea and pleuritic chest pain. Cardiovascular: Positive for pulmonary emboli as well as for edema of the lower extremities and dyspnea on exertion. GI: Positive for bloating and she has had a cholecystectomy. Neurologic: Negative for seizures, convulsions or paralysis. Nodes: Negative for lymphadenopathy Hematologic: Positive for anemia but negative for excessive bleeding. I am discontinuing her allopurinol. The Xarelto has already been stopped. Impression: Hypercoagulopathy that will probably require lifetime coagulation. We can check coagulation studies later. It would be unlikely to have positive results on some of them presently and if she remains on anticoagulants some of the tests would be invalid. Pancytopenia of indefinite etiology, possibly medication related or even possibly lab error. I will follow this closely. Thank you for consulting me. Home Medications Medication Instructions Recorded Confirmed Type Allopurinol 100 mg PO DAILY 11/25/16 11/25/16 History Ferrous Sulfate 325 mg PO DAILY 11/25/16 11/25/16 History Furosemide Tab [Lasix Tab] 40 mg PO BID DIURETIC 11/25/16 11/25/16 History Potassium Chloride Cap/Tab [K Dur] 20 meq PO DAILY 11/25/16 11/25/16 History Rivaroxaban [Xarelto] 20 mg PO DAILY 11/25/16 11/25/16 History oxyCODONE/ACETAMINOPHEN 5-325 1 tablet PO TID 11/25/16 11/25/16 History [Percocet 5-325] Allergies Allergy/AdvReac Type Severity Reaction Status Date / Time No Known Allergies Allergy Unverified 09/18/16 09:58 Medical,Surgical,& Family Hx - Medical History Cardio: History of: Hypertension, Cardiovascular Problems (LLE DVT 2013) Psychological: History of: Anxiety Disorders, Depression No history of: Bipolar Disorder, Schizophrenia Neurology: History of: Migraine Endocrine: History of: Dyslipidemia No history of: Diabetes Mellitus (IDDM), Diabetes Mellitus (NIDDM), Thyroid Disorder, Endocrine Cancer Respiratory: History of: Asthma, Pulmonary Embolism Genitourinary: History of: Bladder Problem (Urinary frequency) - Surgical History Abdominal Surgeries: Surgical HX of: Cholecystectomy Reproductive Surgeries: Surgical HX of;: Section, Tubal Ligation - Family History Family History: Reports;: Family Diabetes, Family Heart Disease - Social History Smoking Status: Never smoker Frequency of Alcohol Use: Rarely Type of Drug Use: None Exam - Constitutional Vitals: Period Temp Pulse Resp BP Sys/Masterson Pulse Ox Last 24 Hr 96.3 F-98.6 F 84-100 13-87 91-112/56-87 92-100 Results - Labs CBC & BMP: 11/27/16 03:05 11/26/16 23:09 Quality Measures - VTE Contraindication to Mechanical VTE Prophylaxis: Current Diagnosis of DVT - Stroke Onset of Symptoms Date: 11/25/16
[2016-11-26 14:00] LABS: Eosinophils % 1.7 % (0.00-10.9); Hematocrit 23.7 VOL% (35.7-47.0); Hemoglobin 7.8 GM/DL (12.0-16.0); Immature Granulocytes % 0.4 %; Immature Granulocytes Absolute 0.01 #; Lymphocytes # 0.8 10*3/uL (1.4-4.0); Lymphocytes % 35.3 % (21.3-54.2); Mean Corpuscular HGB Conc 32.9 GM/DL (32-36); Mean Corpuscular Hemoglobin 26 PG (27-34); Mean Corpuscular Volume 79.8 FL (87-102); Mean Platelet Volume 9.7 FL (9.6-12.0); Monocytes % 1.7 % (1.7-12.7); Neutrophils # 1.5 10*3/uL (1.4-7.4); Neutrophils % 60.9 % (38.7-73.9); Platelet Count 62 T/CUMM (130-400); Red Blood Count 2.97 MC/CUMM (3.8-5.5); Red Cell Distribution Width 28.5 % (9.3-17.3); White Blood Count 2.4 T/CUMM (4-12)
[2016-11-26 14:23] LABS: Anisocytosis 1+; Eosinophils 1 % (0-10); Hypochromasia 2+; Lymphocytes 35 % (20-55); Segmented Neutrophils 64 % (50-85); Target Cells 1+; Total Cells Counted 100
[2016-11-26 14:24] LABS: Elliptocytes Few; Platelet Estimate Decreased; Schistocytes Few
[2016-11-26 15:00] LABS: Rheumatoid Factor < 15 IU/ML (<15)
[2016-11-26 15:34] LABS: Partial Thromboplastin Time 23.5 SECS (0-40)
[2016-11-26] MEDS: RIVAROXABAN 15 MG TABLET PO SCH (17:48)
[2016-11-26] MEDS ORDERED: FERROUS SULFATE 325 MG TABLET PO ONE (21:00)
[2016-11-27] MEDS: SODIUM CHLORIDE 0.9% 1,000 ML IV SCH ×3 (00:09→06:45)
[2016-11-27] MEDS: POTASSIUM CHLORIDE 20 MEQ TABLET PO PRN ×3 (00:13→05:08)
[2016-11-27 03:22] LABS: Basophils % 0.3 % (0.0-0.8); Eosinophils # 0.1 10*3/uL (0.0-0.87); Eosinophils % 3.8 % (0.00-10.9); Hemoglobin 7.6 GM/DL (12.0-16.0); Immature Granulocytes % 0.3 %; Immature Granulocytes Absolute 0.01 #; Lymphocytes # 1.5 10*3/uL (1.4-4.0); Mean Corpuscular HGB Conc 31.7 GM/DL (32-36); Mean Corpuscular Hemoglobin 26 PG (27-34); Mean Corpuscular Volume 81.6 FL (87-102); Monocytes # 0.1 10*3/uL (0.11-0.8); Monocytes % 1.7 % (1.7-12.7); Neutrophils # 1.2 10*3/uL (1.4-7.4); Neutrophils % 42.9 % (38.7-73.9); Platelet Count 62 T/CUMM (130-400); Red Blood Count 2.94 MC/CUMM (3.8-5.5); Red Cell Distribution Width 29.1 % (9.3-17.3); White Blood Count 2.9 T/CUMM (4-12)
[2016-11-27 03:55] LABS: INR 1.3; PT Patient Result 14.3 SECS
[2016-11-27 03:56] LABS: Partial Thromboplastin Time 33.5 SECS (0-40)
[2016-11-27 04:25] LABS: Eosinophils 5 % (0-10); Lymphocytes 48 % (20-55); Platelet Estimate Decreased; Segmented Neutrophils 47 % (50-85); Target Cells Few; Tear Drop Cells Few; Total Cells Counted 100
[2016-11-27 04:26] LABS: Polychromasia Slight
[2016-11-27] MEDS ORDERED: SODIUM CHLORIDE 0.9% 250 ML IV PRN (06:43)
--- NOTE | 2016-11-27 06:47 | Oncology Progress Note ---
Oncology Subjective PN Interval history: Ms. Del Cid was admitted with pulmonary embolus and DVT and has undergone TPA 2 days ago. She was found to have anemia which has worsened. She also had leukopenia which has improved. In addition, she has moderate thrombocytopenia without active bleeding and we will continue to monitor this. On physical examination she is oriented and alert. Respirations are unlabored. Heart sounds are normal. She is morbidly obese. Examination of her oral and nasal mucosa does not demonstrate any bleeding or other significant abnormalities. Blood work today has improved modestly except that her hemoglobin has fallen further. It is now 7.6. I am ordering 2 units of packed red cells. Her platelet count is 62,000. If she is not actively bleeding, this is adequate. If she begins to bleed we should consider transfusing platelets. Her white cell count is up slightly to 2900. I am wondering if the low white cell count and some of the of the low blood cell counts including the platelet count might not be related to the small amount of allopurinol that she has been taking or possibly 1 of her other home medications. I thought I ordered a conference of metabolic profile and LDH today. If I did not, I am going to order it. I note also that her folic acid level is low so I am going to start her on folic acid which may be contributing to some of her low blood counts. We shall continue to monitor her blood counts closely but from my standpoint she could go to a private room this morning. Nursing staff needs to be aware of the patient's risks for hemorrhage as well as for recurrent thrombosis. Exam - Constitutional Vitals: Period Temp Pulse Resp BP Sys/Masterson Pulse Ox Last 24 Hr 97.6 F-98.9 F 79-110 18-28 90-126/59-96 91-100 Results - Labs CBC & BMP: 11/27/16 03:05 11/26/16 23:09 Quality Measures - VTE Contraindication to Mechanical VTE Prophylaxis: Current Diagnosis of DVT - Stroke Onset of Symptoms Date: 11/25/16
[2016-11-27] MEDS: FERROUS SULFATE 325 MG TABLET PO SCH (08:12)
[2016-11-27] MEDS: FUROSEMIDE 40 MG TABLET PO SCH (08:12)
[2016-11-27] MEDS: RIVAROXABAN 15 MG TABLET PO SCH ×2 (08:12→17:24)
[2016-11-27] MEDS: oxyCODONE/ACETAMINOPHEN 5-325 MG TABLET PO SCH ×3 (08:12→20:52)
[2016-11-27] MEDS: FOLIC ACID 1 MG TABLET PO SCH (08:12)
[2016-11-27] MEDS: PANTOPRAZOLE 40 MG TABLET PO SCH (08:13)
[2016-11-27] MEDS: POTASSIUM CHLORIDE 20 MEQ TABLET PO SCH (08:13)
[2016-11-27 08:32] LABS: Albumin 2.5 G/DL (3.4-5.0); Bilirubin,Total 0.5 MG/DL (0.2-1.0); Osmolality,Calculated 275.4 MOS/KG (273-304); Potassium 3.3 MMOL/L (3.5-5.1); Total Protein 5.7 G/DL (6.4-8.3)
[2016-11-27 08:34] LABS: Calcium 5.5 MG/DL (8.5-10.1)
--- NOTE | 2016-11-27 08:50 | Pulmonology Progress Note ---
Pulmonary - PN: Subj Interval history: This 41-year-old white female has had pulmonary emboli. 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 She does have an IVC filter in place noted on KUB. She has had TPA treatment via EKOS, and is on Xarelto. She has a pancytopenia. Dr. Napoles is evaluating that. Her hematocrit is 24 and she is going to be transfused today to give her some cushion with her being on the anticoagulants. She has a history of hypermenorrhea. We should consider having her get a hysterectomy after she has been back on anticoagulants for a month or so. She has an IVC filter in which should somewhat protect her, however she did have a pulmonary embolus despite that on this occasion. Likely she has collateral vessels. Exam (Progress Note) - Constitutional Vitals: Period Temp Pulse Resp BP Sys/Masterson Pulse Ox Last 24 Hr 97.4 F-98.9 F 79-110 18-28 90-126/59-96 91-100 Exam: Patient's alert. Vital signs normal, O2 sat 100% on 2 L. Pupils react to light. Throat is clear. Chest sounds clear equal breath sounds. Heart normal rate rhythm no murmurs. Abdomen soft no masses. Bowel sounds present. Extremities no clubbing cyanosis edema. Calves are nontender. Results - Labs CBC & BMP: 11/27/16 03:05 11/27/16 05:50 Lab Results: I have reviewed the past 24 hour labs Assessment and Plan (1) Pulmonary thromboembolism Status: Acute Assessment and plan: Patient has had TPA treatment, now getting Xarelto which she will need lifelong. She has an IVC filter in place. Must have had a clot to go through a collateral path. Current Visit: Yes (2) Pancytopenia Status: Acute Assessment and plan: Being evaluated by hematology. Getting transfusion today since hematocrit is 24 and she is on anticoagulants. Current Visit: Yes (3) Left leg DVT Status: Acute Assessment and plan: Treatment with Xarelto. Current Visit: Yes
--- NOTE | 2016-11-27 09:56 | Cardiology Progress Note ---
Assessment and Plan (1) Pulmonary thromboembolism Status: Resolved Assessment and plan: See plan of care listed below. Current Visit: Yes (2) Left leg DVT Status: Acute Assessment and plan: See plan of care listed below. Current Visit: Yes (3) Hypertension Status: Chronic Assessment and plan: See plan of care listed below. Current Visit: Yes (4) Pancytopenia Status: Acute Assessment and plan: See plan of care listed below. Current Visit: Yes (5) Hypokalemia Status: Acute Assessment and plan: See plan of care listed below. Current Visit: Yes Cardiology - PN: Subj Interval history: Twisting Machine Operator: Dr. Rome (new) PCP: Dr. Macdonald SUMMARY : Ms. Del Cid is a 41 year old female with history of hypertension, iron deficiency anemia, gout, and right lower extremity DVT on Xarelto. 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 She is now status post EKOS bilateral pulmonary catheter with TPA infusion, on Xarelto. She does have IVC filter in place. She has a pancytopenia. Dr. Napoles is evaluating. Echocardiogram this admission revealed ejection fraction of 55-60%. Grade 1 diastolic dysfunction. Mildly increased right ventricular and right atrial size. Mild tricuspid regurgitation and PAP 40 mmHg. November 27, 2016 Update: Patient seen and examined in the CCU. Awake, Alert and pleasant this morning. She is without complaints this morning. Her right groin sheath was discontinued yesterday. Groin is soft without bleeding, hematoma and bruit. Distal pulses 2+. H&H today is 7.6 and 24.0. She will be transfused today she is on anticoagulants. Potassium is 3.3, continue replacement protocol. Vital signs are stable. She is in normal sinus rhythm rate in the 90s any overt arrhythmias or ectopy noted. Assessment/plan: 1. PULMONARY THROMBOEMBOLISM - Now status post EKOS bilateral pulmonary catheter with TPA infusion. On Xarelto. She does have a IVC filter in place. Clot most likely went through collateral path. 2. LEFT LEG DVT - Continue current plan of care with Xarelto. 3. PANCYTOPENIA - Dr. Napoles is evaluating. Scheduled for transfusion today, H&H is 7.6 and 24.0. 4. HYPOKALEMIA - Potassium with present protocol. 5. HYPERTENSION -blood pressure is well controlled. Continue current plan of care. Further plan and addendum to follow per Dr. Fraga. Exam (Progress Note) - Constitutional Vitals: Period Temp Pulse Resp BP Sys/Masterson Pulse Ox Last 24 Hr 97.4 F-98.9 F 79-110 18-26 90-126/59-96 91-100 Exam: General: Appears well with no apparent distress. Pleasant and cooperative. Appears comfortable. HEENT: PERRL, normocephalic, atraumatic. Mucous membranes moist. No jaundice noted. Conjunctiva moist and clear, sclerae anicteric Neck: No JVD/HJR, no thyromegaly or lymphadenopathy noted. No carotid bruit appreciated Cardiac: Regular rate and rhythm. No murmur rub or gallop. Lungs: Clear to auscultation without accessory muscle use to assist the respiratory pattern. Not requiring oxygen. Abdomen: Soft, obese, bowel sounds normoactive. Nontender and nondistended. No abdominal bruit or thrill noted. No masses noted. Extremities: No clubbing, cyanosis noted. No edema noted. Upper extremity pulses 2+. Lower extremity pulses 2+. Capillary refill less than 3 seconds. Right groin soft without bleeding, hematoma and bruit. Distal pulses 2+. Skin: No unusual lesions or rashes. No skin breakdown appreciated. Neuro: Awake, alert and oriented 3. Moves all extremities well without hemiparesis or paralysis. No essential tremor is appreciated. Result/EKG - Labs CBC & BMP: 11/27/16 03:05 11/27/16 05:50 Lab Results: I have reviewed the past 24 hour labs Labs: Laboratory Results - last 24 hr 11/26/16 11/26/16 11/26/16 09:55 09:55 09:55 WBC 2.0 L RBC 3.06 L Hgb 8.0 L Hct 25.0 L MCV 81.7 L MCH 26 L MCHC 32.0 RDW 28.6 H Plt Count 64 L MPV 10.0 Neut % (Auto) 57.9 Lymph % (Auto) 36.9 Bladen % (Auto) 2.1 Eos % (Auto) 2.6 Baso % (Auto) 0.0 Neut # (Auto) 1.1 L Lymph # (Auto) 0.7 L Bladen # (Auto) 0.0 L Eos # (Auto) 0.1 Baso # (Auto) 0.0 Total Counted 100 Immature Gran % 0.5 Nucleated RBC % 0.0 Immature Gran # 0.01 Segmented Neutrophils 61 Lymphocytes 38 Monocytes 1 L Eosinophils Nucleated RBCs # 0.00 Platelet Estimate Decreased Polychromasia Hypochromasia 1+ Anisocytosis Microcytosis 1+ Target Cells Slight Tear Drop Cells Slight Ovalocytes Few Elliptocytes Schistocytes ESR Westergren 41 H Absolute Retic 0.0 Percent Retic 0.1 L Retic Hgb Equivalent 37.6 H INR PT Patient/Control Mix Fibrinogen Circ Anticoag PTT Sodium Potassium Chloride Carbon Dioxide Anion Gap BUN Creatinine GFR Calculation BUN/Creatinine Ratio Glucose Calculated Osmolality Uric Acid Calcium Ferritin 44.7 Total Bilirubin AST ALT Alkaline Phosphatase Lactate Dehydrogenase Total Protein Albumin Globulin Albumin/Globulin Ratio Vitamin B12 506 Folate 2.0 L Rheumatoid Factor Blood Type Antibody Screen SALONI (IgG-AHG) SALONI, Polyspecific Crossmatch 11/26/16 11/26/16 11/26/16 09:55 13:55 13:55 WBC 2.4 L RBC 2.97 L Hgb 7.8 L Hct 23.7 L MCV 79.8 L MCH 26 L MCHC 32.9 RDW 28.5 H Plt Count 62 L MPV 9.7 Neut % (Auto) 60.9 Lymph % (Auto) 35.3 Bladen % (Auto) 1.7 Eos % (Auto) 1.7 Baso % (Auto) 0.0 Neut # (Auto) 1.5 Lymph # (Auto) 0.8 L Bladen # (Auto) 0.0 L Eos # (Auto) 0.0 Baso # (Auto) 0.0 Total Counted 100 Immature Gran % 0.4 Nucleated RBC % 0.0 Immature Gran # 0.01 Segmented Neutrophils 64 Lymphocytes 35 Monocytes Eosinophils 1 Nucleated RBCs # 0.00 Platelet Estimate Decreased Polychromasia Hypochromasia 2+ Anisocytosis 1+ Microcytosis Target Cells 1+ Tear Drop Cells Ovalocytes Elliptocytes Few Schistocytes Few ESR Westergren Absolute Retic Percent Retic Retic Hgb Equivalent INR PT Patient/Control Mix Fibrinogen Circ Anticoag PTT Sodium Potassium Chloride Carbon Dioxide Anion Gap BUN Creatinine GFR Calculation BUN/Creatinine Ratio Glucose Calculated Osmolality Uric Acid 9.0 H Calcium Ferritin Total Bilirubin AST ALT Alkaline Phosphatase Lactate Dehydrogenase Total Protein Albumin Globulin Albumin/Globulin Ratio Vitamin B12 Folate Rheumatoid Factor < 15 Blood Type Antibody Screen SALONI (IgG-AHG) Negative SALONI, Polyspecific Negative Crossmatch 11/26/16 11/26/16 11/27/16 15:13 23:09 02:55 WBC RBC Hgb Hct MCV MCH MCHC RDW Plt Count MPV Neut % (Auto) Lymph % (Auto) Bladen % (Auto) Eos % (Auto) Baso % (Auto) Neut # (Auto) Lymph # (Auto) Bladen # (Auto) Eos # (Auto) Baso # (Auto) Total Counted Immature Gran % Nucleated RBC % Immature Gran # Segmented Neutrophils Lymphocytes Monocytes Eosinophils Nucleated RBCs # Platelet Estimate Polychromasia Hypochromasia Anisocytosis Microcytosis Target Cells Tear Drop Cells Ovalocytes Elliptocytes Schistocytes ESR Westergren Absolute Retic Percent Retic Retic Hgb Equivalent INR PT Patient/Control Mix Fibrinogen 253 Circ Anticoag PTT 23.5 D Sodium Potassium 3.3 L Chloride Carbon Dioxide Anion Gap BUN Creatinine GFR Calculation BUN/Creatinine Ratio Glucose Calculated Osmolality Uric Acid Calcium Ferritin Total Bilirubin AST ALT Alkaline Phosphatase Lactate Dehydrogenase Total Protein Albumin Globulin Albumin/Globulin Ratio Vitamin B12 Folate Rheumatoid Factor Blood Type A POSITIVE Antibody Screen Negative SALONI (IgG-AHG) SALONI, Polyspecific Crossmatch See Detail 11/27/16 11/27/16 11/27/16 03:05 03:05 03:05 WBC 2.9 L RBC 2.94 L Hgb 7.6 L Hct 24.0 L MCV 81.6 L MCH 26 L MCHC 31.7 L RDW 29.1 H Plt Count 62 L MPV Neut % (Auto) 42.9 Lymph % (Auto) 51.0 Bladen % (Auto) 1.7 Eos % (Auto) 3.8 Baso % (Auto) 0.3 Neut # (Auto) 1.2 L Lymph # (Auto) 1.5 Bladen # (Auto) 0.1 L Eos # (Auto) 0.1 Baso # (Auto) 0.0 Total Counted 100 Immature Gran % 0.3 Nucleated RBC % 0.0 Immature Gran # 0.01 Segmented Neutrophils 47 L Lymphocytes 48 Monocytes Eosinophils 5 Nucleated RBCs # 0.00 Platelet Estimate Decreased Polychromasia Slight Hypochromasia Anisocytosis Microcytosis Target Cells Few Tear Drop Cells Few Ovalocytes Elliptocytes Schistocytes ESR Westergren Absolute Retic Percent Retic Retic Hgb Equivalent INR 1.3 PT Patient/Control Mix 14.3 Fibrinogen 266 Circ Anticoag PTT 33.5 D Sodium Potassium Chloride Carbon Dioxide Anion Gap BUN Creatinine GFR Calculation BUN/Creatinine Ratio Glucose Calculated Osmolality Uric Acid Calcium Ferritin Total Bilirubin AST ALT Alkaline Phosphatase Lactate Dehydrogenase Total Protein Albumin Globulin Albumin/Globulin Ratio Vitamin B12 Folate Rheumatoid Factor Blood Type Antibody Screen SALONI (IgG-AHG) SALONI, Polyspecific Crossmatch 11/27/16 11/27/16 05:50 Unknown WBC RBC Hgb Hct MCV MCH MCHC RDW Plt Count MPV Neut % (Auto) Lymph % (Auto) Bladen % (Auto) Eos % (Auto) Baso % (Auto) Neut # (Auto) Lymph # (Auto) Bladen # (Auto) Eos # (Auto) Baso # (Auto) Total Counted Immature Gran % Nucleated RBC % Immature Gran # Segmented Neutrophils Lymphocytes Monocytes Eosinophils Nucleated RBCs # Platelet Estimate Polychromasia Hypochromasia Anisocytosis Microcytosis Target Cells Tear Drop Cells Ovalocytes Elliptocytes Schistocytes ESR Westergren Absolute Retic Percent Retic Retic Hgb Equivalent INR PT Patient/Control Mix Fibrinogen Circ Anticoag PTT Sodium 140 Potassium 3.3 L Chloride 103 Carbon Dioxide 25 Anion Gap 15.3 H BUN 6 L Creatinine 0.80 GFR Calculation 131 BUN/Creatinine Ratio 7.00 Glucose 85 Calculated Osmolality 275.4 Uric Acid Calcium 5.5 L* Ferritin Total Bilirubin 0.50 AST 51 H ALT 23 Alkaline Phosphatase 123 H Lactate Dehydrogenase 951 H Total Protein 5.7 L Albumin 2.5 L Globulin 3.2 Albumin/Globulin Ratio 0.7 L Vitamin B12 Folate Rheumatoid Factor Blood Type A POSITIVE Antibody Screen SALONI (IgG-AHG) SALONI, Polyspecific Crossmatch Quality Measures - VTE Contraindication to Mechanical VTE Prophylaxis: Current Diagnosis of DVT - Stroke Onset of Symptoms Date: 11/25/16
[2016-11-27 10:03] LABS: Hemoglobin A1 (Alkaline) 64.4 % (96.5-98.5); Hemoglobin A2 (Alkaline) 2.5 % (1.5-3.5)
[2016-11-27 10:05] LABS: Hemoglobin S (Alkaline) 33.1 %
[2016-11-27] MEDS ORDERED: CALCIUM GLUCONATE 2,000 MG in SODIUM CHLORIDE 0.9% 100 ML IV ONE (10:41)
[2016-11-27] MEDS: predniSONE 20 MG TABLET PO SCH (11:34)
[2016-11-27] MEDS: ALLOPURINOL 100 MG TABLET PO SCH ×2 (11:34→20:52)
--- NOTE | 2016-11-27 12:40 | Hospitalist Progress Note ---
Assessment and Plan (1) Pulmonary thromboembolism Status: Resolved Assessment and plan: s/p ekos, started back on xarelto 15 mg po bid Current Visit: Yes (2) Left leg DVT Status: Acute Assessment and plan: s/p filter, cont xarelto Current Visit: Yes (3) Hypocalcemia Status: Acute Assessment and plan: 2 gram calcium gluconate, and recheck, need to regressively replace mg, check phos, pth and vitamin D Current Visit: Yes (4) Menorrhagia Status: Acute Assessment and plan: needs hysterectomy Current Visit: Yes (5) CAROL (obstructive sleep apnea) Status: Acute Assessment and plan: consult dr Alves Current Visit: Yes (6) Hypokalemia Status: Acute Assessment and plan: replace and recheck today Current Visit: Yes (7) Morbid obesity Status: Acute Current Visit: Yes (8) Pancytopenia Status: Acute Assessment and plan: folate low, supplementation started Current Visit: Yes (9) Hypomagnesemia Status: Acute Assessment and plan: recheck today Current Visit: Yes Hospitalist: Subjective Interval history: Patient currently receiving 2 units packed red blood cell. Platelets have remained stable. Blood pressure is stable patient will be transferred out of the ccu Exam - Constitutional Vitals: Period Temp Pulse Resp BP Sys/Masterson Pulse Ox Last 24 Hr 97.1 F-98.9 F 14-114 15-26 90-135/61-102 91-100 Exam: Heart Rate-[tachy] Lungs-[CTAB but diminished ] GI-[+bs soft, NT] Ext-[1+edema] Neuro [Motor 5/5], [alert and oriented times 3] psych [normal mood and affect] General [no acute distress] Results - Labs CBC & BMP: 11/27/16 03:05 11/27/16 05:50 Lab Results: I have reviewed the past 24 hour labs - Diagnostic Findings Procedure: Abdominal x-ray: report reviewed by me (ivc filter ) Quality Measures - VTE Contraindication to Mechanical VTE Prophylaxis: Current Diagnosis of DVT - Stroke Onset of Symptoms Date: 11/25/16
[2016-11-27] MEDS: CALCIUM CARBONATE CHEW 500 MG TABLET PO SCH ×2 (13:51→17:25)
[2016-11-27 15:25] LABS: Partial Thromboplastin Time 37.5 SECS (0-40)
--- NOTE | 2016-11-28 07:16 | Oncology Progress Note ---
Oncology Subjective PN Interval history: New information comes to light on Ms. Del Cid's case. She has sickle trait which explains her anemia. She is down for an ultrasound and as long as she is improving, I will plan on returning today. Her white cell count has risen. It is 3500 with an absolute neutrophil count of 2000. She has nucleated red cells at 2% on her CBC which is probably related to her sickle trait. She also has microcytic anemia with an MCV of 77.5 and her RDW is 25.0, suggesting some iron deficiency as well as possibly anemia of chronic disease. She has documented folic acid deficiency and has been started on folate. I am still bothered by the thrombocytopenia. I am not sure why the lab is not running MPV's. I do not see comments concerning this. I do note that the patient's JILLIAN is negative and her rheumatoid factor and extractable nuclear antigens are negative/normal. Exam - Constitutional Vitals: Period Temp Pulse Resp BP Sys/Masterson Pulse Ox Last 24 Hr 97.1 F-98.9 F 14-114 15-24 98-135/70-102 95-100 Results - Labs CBC & BMP: 11/28/16 07:18 11/27/16 14:42 Quality Measures - VTE Contraindication to Mechanical VTE Prophylaxis: Current Diagnosis of DVT - Stroke Onset of Symptoms Date: 11/25/16
[2016-11-28 07:27] LABS: Eosinophils % 0.3 % (0.00-10.9); Hematocrit 24.8 VOL% (35.7-47.0); Hemoglobin 8.5 GM/DL (12.0-16.0); Immature Granulocytes % 0.6 %; Immature Granulocytes Absolute 0.02 #; Lymphocytes # 1.2 10*3/uL (1.4-4.0); Lymphocytes % 34.1 % (21.3-54.2); Mean Corpuscular HGB Conc 34.3 GM/DL (32-36); Mean Corpuscular Hemoglobin 27 PG (27-34); Mean Corpuscular Volume 77.5 FL (87-102); Monocytes # 0.2 10*3/uL (0.11-0.8); Monocytes % 6.1 % (1.7-12.7); NRBC # 0.07 10*3/uL; Neutrophils % 58.9 % (38.7-73.9); Platelet Count 52 T/CUMM (130-400); White Blood Count 3.5 T/CUMM (4-12)
[2016-11-28 07:37] LABS: Partial Thromboplastin Time 39.1 SECS (0-40)
[2016-11-28 07:50] LABS: Hypochromasia 2+; Lymphocytes 35 % (20-55); Nucleated Red Blood Cells 2 (0-5); Platelet Estimate Decreased; Segmented Neutrophils 58 % (50-85); Total Cells Counted 100
[2016-11-28 07:51] LABS: Ovalocytes Slight
[2016-11-28 07:58] LABS: Albumin 2.5 G/DL (3.4-5.0); Bilirubin,Total 0.6 MG/DL (0.2-1.0); Calcium 6.4 MG/DL (8.5-10.1); Osmolality,Calculated 276.4 MOS/KG (273-304); Potassium 3.2 MMOL/L (3.5-5.1); Total Protein 5.7 G/DL (6.4-8.3)
[2016-11-28 08:21] LABS: Calcium 6.3 MG/DL (8.5-10.1); Magnesium 1.2 MG/DL (1.8-2.4); Osmolality,Calculated 276.4 MOS/KG (273-304); Potassium 3.3 MMOL/L (3.5-5.1)
--- NOTE | 2016-11-28 08:31 | Pulmonology Progress Note ---
Pulmonary - PN: Subj Interval history: This 41-year-old white female has had pulmonary emboli. 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 She does have an IVC filter in place noted on KUB. She has had TPA treatment via EKOS, and is on Xarelto. She has a pancytopenia. Dr. Napoles is evaluating that. Her hematocrit is 24 and she is going to be transfused today to give her some cushion with her being on the anticoagulants. She has a history of hypermenorrhea. We should consider having her get a hysterectomy after she has been back on anticoagulants for a month or so. She has an IVC filter in which should somewhat protect her, however she did have a pulmonary embolus despite that on this occasion. Likely she has collateral vessels. 11/28/2016 patient is less short of breath. She is on Xarelto. Her hematocrit did not come up with transfusion yesterday. Defer to hematology on that one. She does have sickle cell trait. She has a folate deficiency. She may have an iron deficiency as well. Our plans are to try to get her hematocrit up near normal so that if she bleeds while on anticoagulants it may be life- threatening. Again it may require a hysterectomy, but would need to have a sharebroker to evaluate for that obviously. Exam (Progress Note) - Constitutional Vitals: Period Temp Pulse Resp BP Sys/Masterson Pulse Ox Last 24 Hr 97.1 F-98.9 F 14-114 15-24 98-135/70-102 95-100 Exam: Patient's alert. Vital signs normal, O2 sat 100% on 2 L. Pupils react to light. Throat is clear. Chest sounds clear equal breath sounds. Heart normal rate rhythm no murmurs. Abdomen soft no masses. Bowel sounds present. Extremities no clubbing cyanosis edema. Calves are nontender. Little change from yesterday. Results - Labs CBC & BMP: 11/28/16 07:18 11/28/16 07:18 Lab Results: I have reviewed the past 24 hour labs Assessment and Plan (1) Pulmonary thromboembolism Status: Resolved Assessment and plan: Patient has had TPA treatment, now getting Xarelto which she will need lifelong. She has an IVC filter in place. Must have had a clot to go through a collateral path. 11/28/2016 patient will need lifelong Xarelto because of recurrent DVT and noncompliance with anticoagulants. Chronic anemia will be a complicating factor. Current Visit: Yes (2) Pancytopenia Status: Acute Assessment and plan: Being evaluated by hematology. Getting transfusion today since hematocrit is 24 and she is on anticoagulants. Current Visit: Yes (3) Left leg DVT Status: Acute Assessment and plan: Treatment with Xarelto. 11/28/2016 this is recurrent DVT. Normally would expect lifelong anticoagulants. Patient does have an IVC umbrella, however she had a pulmonary embolus despite that. Current Visit: Yes
--- NOTE | 2016-11-28 08:34 | Ultrasound Report ---
US abdomen Indication: Hepatomegaly Comparison: None Technique: Multiple longitudinal and transverse real-time sonographic images of the abdomen are obtained. Findings: The liver measures 18 cm and demonstrates normal echogenicity without focal abnormality on submitted images. Status post cholecystectomy. The common bile duct measures 0.5 cm in diameter. There is no evidence of intrahepatic ductal dilatation. The right and left kidneys measure 10.2 cm and 10.3 cm, respectively. There is no evidence of hydronephrosis. The spleen measures 9 cm without focal abnormality. Evaluation of the pancreas limited secondary to bowel gas.. IVC and aorta: Visualized portions grossly unremarkable. No evidence of ascites. IMPRESSION: The liver measures minimally prominent. Status post cholecystectomy. PROCEDURE INTERPRETED AT [facility] DEPARTMENT OF RADIOLOGY Final Report Signed by: Dr Macho Wang
--- NOTE | 2016-11-28 09:11 | Discharge Summary ---
Discharge Plan - Discharge Medications No Action Rivaroxaban [Xarelto] 1 tablet PO BID Furosemide [Furosemide] 40 tablet PO BID Potassium Chloride 20 meq PO BID Albuterol Sulfate [Proair Hfa] 2 puffs INH Q4H PRN PRN Reason: Shortness Of Breath/Wheezing Ferrous Sulfate 325 mg PO BID #60 tablet Folic Acid Tab 1 mg PO DAILY #30 tablet Potassium Chloride Cap/Tab [K Dur] 20 meq PO DAILY #30 tablet Potassium Chloride Cap/Tab [K Dur] 20 meq PO DAILY Rivaroxaban [Xarelto] 20 mg PO DAILY Furosemide Tab [Lasix Tab] 40 mg PO BID DIURETIC oxyCODONE/ACETAMINOPHEN 5-325 [Percocet 5-325] 1 tablet PO TID Allopurinol 100 mg PO DAILY Colchicine [Colcrys] 0.6 mg PO QAM Ferrous Sulfate Tab [Feosol Original Tab] 325 mg PO BID Ferrous Sulfate 325 mg PO DAILY - Follow Up or Referral - Forms/Instructions Exam - Constitutional Vitals: Period Temp Pulse Resp BP Sys/Masterson Pulse Ox Last 24 Hr 97.1 F-98.9 F 14-114 15-24 112-135/70-102 95-100 Discharge Results Procedures and tests throughout hospitalization: Pending Orders 11/28/16 15:00 Fibrinogen Q12H Partial Thromboplastin Time Q12H 11/29/16 04:00 BMP w/ Mg [Basic Metabolic Panel w/Mg] IN AM Comp Blood Count Auto Diff IN AM Comprehensive Metabolic Panel IN AM LDH [Lactate Dehydrogenase] IN AM 11/30/16 04:00 BMP w/ Mg [Basic Metabolic Panel w/Mg] IN AM Comp Blood Count Auto Diff IN AM Comprehensive Metabolic Panel IN AM LDH [Lactate Dehydrogenase] IN AM 12/01/16 04:00 BMP w/ Mg [Basic Metabolic Panel w/Mg] IN AM Comp Blood Count Auto Diff IN AM Comprehensive Metabolic Panel IN AM LDH [Lactate Dehydrogenase] IN AM 12/02/16 04:00 Comp Blood Count Auto Diff IN AM Comprehensive Metabolic Panel IN AM Labs on day of discharge: Labs from last 24 hours 11/28/16 11/28/16 11/28/16 07:18 07:18 07:18 WBC 3.5 L RBC 3.20 L Hgb 8.5 L Hct 24.8 L MCV 77.5 L MCH 27 MCHC 34.3 RDW 25.0 H Plt Count 52 L MPV Neut % (Auto) 58.9 Lymph % (Auto) 34.1 [place] % (Auto) 6.1 Eos % (Auto) 0.3 Baso % (Auto) 0.0 Neut # (Auto) 2.0 Lymph # (Auto) 1.2 L [place] # (Auto) 0.2 Eos # (Auto) 0.0 Baso # (Auto) 0.0 Total Counted 100 Immature Gran % 0.6 Nucleated RBC % 2.0 Immature Gran # 0.02 Segmented Neutrophils 58 Lymphocytes 35 Monocytes 7 Nucleated RBCs 2 Nucleated RBCs # 0.07 Anemia Panel Interp Platelet Estimate Decreased Hypochromasia 2+ Microcytosis Target Cells Tear Drop Cells Ovalocytes Slight Morphology Comment ESR Westergren Absolute Retic Percent Retic Retic Hgb Equivalent Sickle Cell Screen Hemoglobin A1 Hemoglobin A2 Hemoglobin S Hgb ELP Interp Fibrinogen Circ Anticoag PTT Sodium 140 140 Potassium 3.2 L 3.3 L Chloride 102 102 Carbon Dioxide 27 28 Anion Gap 14.2 13.3 BUN 8 8 Creatinine 0.70 0.70 GFR Calculation 173 173 BUN/Creatinine Ratio 11.00 11.00 Glucose 99 99 Calculated Osmolality 276.4 276.4 Calcium 6.4 L 6.3 L Phosphorus Magnesium 1.2 L Total Bilirubin 0.60 AST 26 ALT 18 Alkaline Phosphatase 103 Lactate Dehydrogenase 729 H Total Protein 5.7 L Albumin 2.5 L Globulin 3.2 Albumin/Globulin Ratio 0.7 L Vitamin B12 25-OH Vitamin D Total Folate PTH Intact JILLIAN Screen Sm ([place]) Antibody OBSERVATION NURSE Antibody Blood Type Antibody Screen Crossmatch 11/28/16 11/27/16 11/27/16 07:18 Unknown 17:52 WBC RBC Hgb Hct MCV MCH MCHC RDW Plt Count MPV Neut % (Auto) Lymph % (Auto) [place] % (Auto) Eos % (Auto) Baso % (Auto) Neut # (Auto) Lymph # (Auto) [place] # (Auto) Eos # (Auto) Baso # (Auto) Total Counted Immature Gran % Nucleated RBC % Immature Gran # Segmented Neutrophils Lymphocytes Monocytes Nucleated RBCs Nucleated RBCs # Anemia Panel Interp Platelet Estimate Hypochromasia Microcytosis Target Cells Tear Drop Cells Ovalocytes Morphology Comment ESR Westergren Absolute Retic Percent Retic Retic Hgb Equivalent Sickle Cell Screen Positive Hemoglobin A1 Hemoglobin A2 Hemoglobin S Hgb ELP Interp Fibrinogen 375 Circ Anticoag PTT 39.1 Sodium Potassium Chloride Carbon Dioxide Anion Gap BUN Creatinine GFR Calculation BUN/Creatinine Ratio Glucose Calculated Osmolality Calcium Phosphorus Magnesium Total Bilirubin AST ALT Alkaline Phosphatase Lactate Dehydrogenase Total Protein Albumin Globulin Albumin/Globulin Ratio Vitamin B12 25-OH Vitamin D Total Folate PTH Intact 303.3 H JILLIAN Screen Sm ([place]) Antibody OBSERVATION NURSE Antibody Blood Type Antibody Screen Crossmatch 11/27/16 11/27/16 11/27/16 14:42 14:42 14:42 WBC RBC Hgb Hct MCV MCH MCHC RDW Plt Count MPV Neut % (Auto) Lymph % (Auto) [place] % (Auto) Eos % (Auto) Baso % (Auto) Neut # (Auto) Lymph # (Auto) [place] # (Auto) Eos # (Auto) Baso # (Auto) Total Counted Immature Gran % Nucleated RBC % Immature Gran # Segmented Neutrophils Lymphocytes Monocytes Nucleated RBCs Nucleated RBCs # Anemia Panel Interp Platelet Estimate Hypochromasia Microcytosis Target Cells Tear Drop Cells Ovalocytes Morphology Comment ESR Westergren Absolute Retic Percent Retic Retic Hgb Equivalent Sickle Cell Screen Hemoglobin A1 Hemoglobin A2 Hemoglobin S Hgb ELP Interp Fibrinogen 349 Circ Anticoag PTT 37.5 Sodium Potassium 3.6 Chloride Carbon Dioxide Anion Gap BUN Creatinine GFR Calculation BUN/Creatinine Ratio Glucose Calculated Osmolality Calcium Phosphorus Magnesium 0.9 L Total Bilirubin AST ALT Alkaline Phosphatase Lactate Dehydrogenase Total Protein Albumin Globulin Albumin/Globulin Ratio Vitamin B12 25-OH Vitamin D Total Folate PTH Intact JILLIAN Screen Sm ([place]) Antibody OBSERVATION NURSE Antibody Blood Type Antibody Screen Crossmatch 11/27/16 11/27/16 11/27/16 14:35 14:35 02:55 WBC RBC Hgb Hct MCV MCH MCHC RDW Plt Count MPV Neut % (Auto) Lymph % (Auto) [place] % (Auto) Eos % (Auto) Baso % (Auto) Neut # (Auto) Lymph # (Auto) [place] # (Auto) Eos # (Auto) Baso # (Auto) Total Counted Immature Gran % Nucleated RBC % Immature Gran # Segmented Neutrophils Lymphocytes Monocytes Nucleated RBCs Nucleated RBCs # Anemia Panel Interp Platelet Estimate Hypochromasia Microcytosis Target Cells Tear Drop Cells Ovalocytes Morphology Comment ESR Westergren Absolute Retic Percent Retic Retic Hgb Equivalent Sickle Cell Screen Hemoglobin A1 Hemoglobin A2 Hemoglobin S Hgb ELP Interp Fibrinogen Circ Anticoag PTT Sodium Potassium Chloride Carbon Dioxide Anion Gap BUN Creatinine GFR Calculation BUN/Creatinine Ratio Glucose Calculated Osmolality Calcium Phosphorus 2.8 Magnesium Total Bilirubin AST ALT Alkaline Phosphatase Lactate Dehydrogenase Total Protein Albumin Globulin Albumin/Globulin Ratio Vitamin B12 25-OH Vitamin D Total 6.0 Folate PTH Intact JILLIAN Screen Sm ([place]) Antibody OBSERVATION NURSE Antibody Blood Type A POSITIVE Antibody Screen Negative Crossmatch See Detail 11/26/16 11/26/16 11/26/16 13:55 09:55 09:55 WBC 2.0 L RBC 3.06 L Hgb 8.0 L Hct 25.0 L MCV 81.7 L MCH 26 L MCHC 32.0 RDW 28.6 H Plt Count 64 L MPV 10.0 Neut % (Auto) 57.9 Lymph % (Auto) 36.9 [place] % (Auto) 2.1 Eos % (Auto) 2.6 Baso % (Auto) 0.0 Neut # (Auto) 1.1 L Lymph # (Auto) 0.7 L [place] # (Auto) 0.0 L Eos # (Auto) 0.1 Baso # (Auto) 0.0 Total Counted 100 Immature Gran % 0.5 Nucleated RBC % 0.0 Immature Gran # 0.01 Segmented Neutrophils 61 Lymphocytes 38 Monocytes 1 L Nucleated RBCs Nucleated RBCs # 0.00 Anemia Panel Interp Platelet Estimate Decreased Hypochromasia 1+ Microcytosis 1+ Target Cells Slight Tear Drop Cells Slight Ovalocytes Few Morphology Comment ESR Westergren 41 H Absolute Retic 0.0 Percent Retic 0.1 L Retic Hgb Equivalent 37.6 H Sickle Cell Screen Hemoglobin A1 64.4 L Hemoglobin A2 2.5 Hemoglobin S 33.1 Hgb ELP Interp Fibrinogen Circ Anticoag PTT Sodium Potassium Chloride Carbon Dioxide Anion Gap BUN Creatinine GFR Calculation BUN/Creatinine Ratio Glucose Calculated Osmolality Calcium Phosphorus Magnesium Total Bilirubin AST ALT Alkaline Phosphatase Lactate Dehydrogenase Total Protein Albumin Globulin Albumin/Globulin Ratio Vitamin B12 506 25-OH Vitamin D Total Folate 2.0 L PTH Intact JILLIAN Screen Negative (<1:160) Sm ([place]) Antibody < 16 OBSERVATION NURSE Antibody < 16 Blood Type Antibody Screen Crossmatch DS: Provider Date of admission: 11/25/16 13:12 Primary care physician: . No PCP Attending physician on admission: Jun Carpio MD Consults: 11/26/16 09:10 Consult to Physician [CONS] Routine Comment: pancytopenia Consulting Provider: Javy Napoles Person Notified: Dr. Napoles Date Notified: 11/26/16 Time Notified: 10:37 11/26/16 18:22 Consult to Physician [CONS] Routine Comment: Consulting Provider: Albin Tang Person Notified: Clyde Date Notified: 11/26/16 Consult Notification Comment: Dr. Rome talked to Dr. Tang and Dr. Tang has already seen patient 11/27/16 12:39 Consult to Sleep Center [CONS] Routine Reason for Sleep Center: Sleep Center Physician Consult Comment: zane Discharging clinician: Khushboo Ramires NP
[2016-11-28] MEDS: FERROUS SULFATE 325 MG TABLET PO SCH (09:12)
[2016-11-28] MEDS: FOLIC ACID 1 MG TABLET PO SCH (09:12)
[2016-11-28] MEDS: PANTOPRAZOLE 40 MG TABLET PO SCH (09:12)
[2016-11-28] MEDS: predniSONE 20 MG TABLET PO SCH (09:12)
[2016-11-28] MEDS: oxyCODONE/ACETAMINOPHEN 5-325 MG TABLET PO SCH ×3 (09:12→20:48)
[2016-11-28] MEDS: CALCIUM CARBONATE CHEW 500 MG TABLET PO SCH ×2 (09:12→17:30)
[2016-11-28] MEDS: RIVAROXABAN 15 MG TABLET PO SCH ×2 (09:12→17:30)
[2016-11-28] MEDS: ALLOPURINOL 100 MG TABLET PO SCH (09:13)
[2016-11-28] MEDS ORDERED: MAGNESIUM SULF RIDER 4 GM in PREMIX 1 EACH IV ONE (09:26)
[2016-11-28] MEDS ORDERED: BISACODYL 5 MG TABLET PO ONE (09:28)
[2016-11-28] MEDS: POTASSIUM CHLORIDE 20 MEQ TABLET PO SCH ×2 (09:58→20:48)
--- NOTE | 2016-11-28 11:33 | Hospitalist Progress Note ---
Assessment and Plan (1) Pulmonary thromboembolism Status: Resolved Assessment and plan: s/p ekos, started back on xarelto 15 mg po bid Current Visit: Yes (2) Left leg DVT Status: Acute Assessment and plan: s/p filter, cont xarelto Current Visit: Yes (3) Hypocalcemia Status: Acute Assessment and plan: 2 gram calcium gluconate IV and cont calcium po, elevated PTH with low vitamin D and low magnesium Dr. Jimenez Rosales to consult Current Visit: Yes (4) Menorrhagia Status: Acute Assessment and plan: needs hysterectomy Current Visit: Yes (5) CAROL (obstructive sleep apnea) Status: Acute Assessment and plan: Dr Alves to see Current Visit: Yes (6) Hypokalemia Status: Acute Assessment and plan: replace and recheck, will ask Dr. Rosales to assist us Current Visit: Yes (7) Morbid obesity Status: Acute Current Visit: Yes (8) Pancytopenia Status: Acute Assessment and plan: folate low, supplementation started, allopurinal and colchicine can cause pancytopenia. Will also ask Dr. Harrison to see Current Visit: Yes (9) Hypomagnesemia Status: Acute Assessment and plan: supplement will ask Dr. Rosales for an opinion Current Visit: Yes (10) Vitamin D deficiency Status: Acute Assessment and plan: 50,000 weeky Current Visit: Yes Hospitalist: Subjective Interval history: Patient's potassium, calcium, magnesium remains low. I will ask Dr. scott Rosales to see her to see if he can help us find out why this is persisting. Spoke with Dr. Napoles today and he feels that her pancytopenia may partially be due to allopurinol. Dr. Napoles feels that it may be beneficial have Dr. Harrison from GI see her. She does not report any black tarry stools. She has had 2 bowel movements while she is here and we will guaiac them. Her platelets are little bit lower today. I send her down for an abdominal ultrasound her liver is enlarged but they did not mention fatty liver on the ultrasound. Patient has a history of sickle cell trait. Patient does have a spleen. Exam - Constitutional Vitals: Period Temp Pulse Resp BP Sys/Masterson Pulse Ox Last 24 Hr 97.7 F-98.9 F 14-114 15-24 112-133/70-102 95-100 Exam: Heart Rate-[RRR] Lungs-[CTAB ] GI-[+bs soft, NT] Ext-[1+edema] Neuro [Motor 5/5], [alert and oriented times 3] psych [normal mood and affect] General [no acute distress] Results - Labs CBC & BMP: 11/28/16 07:18 11/28/16 07:18 Lab Results: I have reviewed the past 24 hour labs Labs: PTH elevated at 303, vitamin D 6, calcium 6.4, magnesium 1.2 - Diagnostic Findings Procedure: Abdominal x-ray: report reviewed by me (Spleen 9 cm liver mildly enlarged) Quality Measures - VTE Contraindication to Mechanical VTE Prophylaxis: Current Diagnosis of DVT - Stroke Onset of Symptoms Date: 11/25/16
[2016-11-28] MEDS ORDERED: ERGOCALCIFEROL 50,000 UNIT CAPSULE PO SCH (12:00)
--- NOTE | 2016-11-28 12:49 | Cardiology Progress Note ---
Assessment and Plan (1) Pulmonary thromboembolism Status: Resolved Assessment and plan: See plan of care listed below. Current Visit: Yes (2) Left leg DVT Status: Acute Assessment and plan: See plan of care listed below. Current Visit: Yes (3) Hypertension Status: Chronic Assessment and plan: See plan of care listed below. Current Visit: Yes (4) Pancytopenia Status: Acute Assessment and plan: See plan of care listed below. Current Visit: Yes (5) Hypokalemia Status: Acute Assessment and plan: See plan of care listed below. Current Visit: Yes (6) Gout Status: Chronic Assessment and plan: See plan of care listed below. Current Visit: Yes (7) Hypocalcemia Status: Acute Assessment and plan: See plan of care listed below. Current Visit: Yes (8) Hypomagnesemia Status: Acute Assessment and plan: See plan of care listed below. Current Visit: Yes (9) Menorrhagia Status: Chronic Assessment and plan: See plan of care listed below. Current Visit: Yes (10) CAROL (obstructive sleep apnea) Status: Acute Assessment and plan: See plan of care listed below. Current Visit: Yes (11) Morbid obesity Status: Chronic Assessment and plan: See plan of care listed below. Current Visit: Yes Cardiology - PN: Subj Interval history: Installer Molding And Trim: Dr. Rome (new) PCP: Dr. Macdonald SUMMARY : Ms. Del Cid is a 41 year old female with history of hypertension, iron deficiency anemia, gout, and right lower extremity DVT on Xarelto. 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 She is now status post EKOS bilateral pulmonary catheter with TPA infusion, on Xarelto. She does have IVC filter in place. She has a pancytopenia. Dr. Napoles is evaluating. Echocardiogram this admission revealed ejection fraction of 55-60%. Grade 1 diastolic dysfunction. Mildly increased right ventricular and right atrial size. Mild tricuspid regurgitation and PAP 40 mmHg. November 28, 2016 Update: Patient seen and examined on the telemetry unit. She is doing well after being transferred up from the unit yesterday. Awake, Alert and pleasant this morning. She is without complaints. Right groin remains soft , without bleeding, hematoma and bruit. Distal pulses 2+. H&H today is slightly better at 8.5 and 24.8 after blood transfusion yesterday. Potassium is 3.2, continue replacement protocol. Magnesium 1.2, this was replaced this morning. Nephrology has been consulted to further evaluate patient's hypokalemia, hypocalcemia and hypomagnesemia. Patient remains pancytopenic. Dr. Napoles is following and feels as though this may be partially due to allopurinol. GI has been consulted. Vital signs are stable. Blood pressure is stable. She still has mild tachycardia, with light activity, this is likely compensatory. Since this is not symptomatic, I would hold off starting a beta- katheryn at this time. If this continues or she becomes symptomatic will consider adding beta-katheryn at that time. Currently, she is in normal sinus rhythm rate in the 70s any overt arrhythmias or ectopy noted. Assessment/plan: 1. PULMONARY THROMBOEMBOLISM - Now status post EKOS bilateral pulmonary catheter with TPA infusion. On Xarelto. She does have a IVC filter in place. Continue Xarelto. 2. LEFT LEG DVT - Continue current plan of care with Xarelto. 3. PANCYTOPENIA - Management per Dr. Napoles. Thought to be possibly related to patient's allopurinol. GI has also been consulted. 4. HYPOKALEMIA - Continue potassium replacement protocol. Daily BMP. Nephrology has been consulted to further evaluate. 5. HYPOCALCEMIA - Slightly improved from yesterday. Daily BMP. Nephrology has been consulted to further evaluate. 6. HYOPMAGNESEMIA - This is replaced with 4 g of magnesium ER earlier today. Daily magnesium. Nephrology has been consulted to further evaluate. 7. HYPERTENSION - Blood pressure is well controlled. Continue current plan of care. 8. GOUT - Management per hospital medicine. Continue prednisone. Colchicine and allopurinol currently on hold due to side effect of pancytopenia. 9. MENORRHAGIA - Patient will need hysterectomy in the future. 10. CAROL -Dr. Alves has been asked to see patient. 11. MORBID OBESITY - Counseled patient on importance of weight loss. 12. SINUS TACHYCARDIA - She has mild tachycardia, with light activity, this is likely compensatory. Since this is not symptomatic, I would hold off starting a beta-katheryn at this time. If this continues or she becomes symptomatic will consider adding beta-katheryn at that time. Further plan and addendum to follow per Dr. Fraga. Exam (Progress Note) - Constitutional Vitals: Period Temp Pulse Resp BP Sys/Masterson Pulse Ox Last 24 Hr 97.4 F-98.9 F 68-110 16-24 112-133/70-99 94-100 Exam: General: Appears well with no apparent distress. Pleasant and cooperative. Appears comfortable. HEENT: PERRL, normocephalic, atraumatic. Mucous membranes moist. No jaundice noted. Conjunctiva moist and clear, sclerae anicteric Neck: No JVD/HJR, no thyromegaly or lymphadenopathy noted. No carotid bruit appreciated Cardiac: Regular rate and rhythm. No murmur rub or gallop. Lungs: Clear to auscultation without accessory muscle use to assist the respiratory pattern. Not requiring oxygen. Abdomen: Soft, obese, bowel sounds normoactive. Nontender and nondistended. No abdominal bruit or thrill noted. No masses noted. Extremities: No clubbing, cyanosis noted. No edema noted. Upper extremity pulses 2+. Lower extremity pulses 2+. Capillary refill less than 3 seconds. Right groin soft without bleeding, hematoma and bruit. Distal pulses 2+. Skin: No unusual lesions or rashes. No skin breakdown appreciated. Neuro: Awake, alert and oriented 3. Moves all extremities well without hemiparesis or paralysis. No essential tremor is appreciated. Result/EKG - Labs CBC & BMP: 11/28/16 07:18 11/28/16 07:18 Lab Results: I have reviewed the past 24 hour labs Labs: Laboratory Results - last 24 hr 11/27/16 11/27/16 11/27/16 02:55 14:35 14:35 WBC RBC Hgb Hct MCV MCH MCHC RDW Plt Count Neut % (Auto) Lymph % (Auto) Hughes % (Auto) Eos % (Auto) Baso % (Auto) Neut # (Auto) Lymph # (Auto) Hughes # (Auto) Eos # (Auto) Baso # (Auto) Total Counted Immature Gran % Nucleated RBC % Immature Gran # Segmented Neutrophils Lymphocytes Monocytes Nucleated RBCs Nucleated RBCs # Platelet Estimate Hypochromasia Ovalocytes Morphology Comment Fibrinogen Circ Anticoag PTT Sodium Potassium Chloride Carbon Dioxide Anion Gap BUN Creatinine GFR Calculation BUN/Creatinine Ratio Glucose Calculated Osmolality Calcium Phosphorus 2.8 Magnesium Total Bilirubin AST ALT Alkaline Phosphatase Lactate Dehydrogenase Total Protein Albumin Globulin Albumin/Globulin Ratio 25-OH Vitamin D Total 6.0 PTH Intact Blood Type A POSITIVE Antibody Screen Negative Crossmatch See Detail 11/27/16 11/27/16 11/27/16 14:42 14:42 14:42 WBC RBC Hgb Hct MCV MCH MCHC RDW Plt Count Neut % (Auto) Lymph % (Auto) [place] % (Auto) Eos % (Auto) Baso % (Auto) Neut # (Auto) Lymph # (Auto) [place] # (Auto) Eos # (Auto) Baso # (Auto) Total Counted Immature Gran % Nucleated RBC % Immature Gran # Segmented Neutrophils Lymphocytes Monocytes Nucleated RBCs Nucleated RBCs # Platelet Estimate Hypochromasia Ovalocytes Morphology Comment Fibrinogen 349 Circ Anticoag PTT 37.5 Sodium Potassium 3.6 Chloride Carbon Dioxide Anion Gap BUN Creatinine GFR Calculation BUN/Creatinine Ratio Glucose Calculated Osmolality Calcium Phosphorus Magnesium 0.9 L Total Bilirubin AST ALT Alkaline Phosphatase Lactate Dehydrogenase Total Protein Albumin Globulin Albumin/Globulin Ratio 25-OH Vitamin D Total PTH Intact Blood Type Antibody Screen Crossmatch 11/27/16 11/28/16 11/28/16 17:52 07:18 07:18 WBC RBC Hgb Hct MCV MCH MCHC RDW Plt Count Neut % (Auto) Lymph % (Auto) [place] % (Auto) Eos % (Auto) Baso % (Auto) Neut # (Auto) Lymph # (Auto) [place] # (Auto) Eos # (Auto) Baso # (Auto) Total Counted Immature Gran % Nucleated RBC % Immature Gran # Segmented Neutrophils Lymphocytes Monocytes Nucleated RBCs Nucleated RBCs # Platelet Estimate Hypochromasia Ovalocytes Morphology Comment Fibrinogen 375 Circ Anticoag PTT 39.1 Sodium 140 Potassium 3.3 L Chloride 102 Carbon Dioxide 28 Anion Gap 13.3 BUN 8 Creatinine 0.70 GFR Calculation 173 BUN/Creatinine Ratio 11.00 Glucose 99 Calculated Osmolality 276.4 Calcium 6.3 L Phosphorus Magnesium 1.2 L Total Bilirubin AST ALT Alkaline Phosphatase Lactate Dehydrogenase Total Protein Albumin Globulin Albumin/Globulin Ratio 25-OH Vitamin D Total PTH Intact 303.3 H Blood Type Antibody Screen Crossmatch 11/28/16 11/28/16 07:18 07:18 WBC 3.5 L RBC 3.20 L Hgb 8.5 L Hct 24.8 L MCV 77.5 L MCH 27 MCHC 34.3 RDW 25.0 H Plt Count 52 L Neut % (Auto) 58.9 Lymph % (Auto) 34.1 Hughes % (Auto) 6.1 Eos % (Auto) 0.3 Baso % (Auto) 0.0 Neut # (Auto) 2.0 Lymph # (Auto) 1.2 L Hughes # (Auto) 0.2 Eos # (Auto) 0.0 Baso # (Auto) 0.0 Total Counted 100 Immature Gran % 0.6 Nucleated RBC % 2.0 Immature Gran # 0.02 Segmented Neutrophils 58 Lymphocytes 35 Monocytes 7 Nucleated RBCs 2 Nucleated RBCs # 0.07 Platelet Estimate Decreased Hypochromasia 2+ Ovalocytes Slight Morphology Comment Fibrinogen Circ Anticoag PTT Sodium 140 Potassium 3.2 L Chloride 102 Carbon Dioxide 27 Anion Gap 14.2 BUN 8 Creatinine 0.70 GFR Calculation 173 BUN/Creatinine Ratio 11.00 Glucose 99 Calculated Osmolality 276.4 Calcium 6.4 L Phosphorus Magnesium Total Bilirubin 0.60 AST 26 ALT 18 Alkaline Phosphatase 103 Lactate Dehydrogenase 729 H Total Protein 5.7 L Albumin 2.5 L Globulin 3.2 Albumin/Globulin Ratio 0.7 L 25-OH Vitamin D Total PTH Intact Blood Type Antibody Screen Crossmatch Quality Measures - VTE Contraindication to Mechanical VTE Prophylaxis: Current Diagnosis of DVT - Stroke Onset of Symptoms Date: 11/25/16
--- NOTE | 2016-11-28 13:07 | Sleep Medicine Consult ---
Assessment and Plan (1) Unspecified sleep apnea Status: Acute Assessment and plan: The records from her overnight polysomnography dated August 27, 2015 at the [facility] sleep center were obtained. At that time, she had a weight of 297 pounds but tested negative for obstructive sleep apnea with an overall AHI of 0.2 with no oxygen saturation below 96%. Ms. Del Cid has persistent complaints of excessive daytime fatigue and sleepiness and loud, disruptive snoring at night with witnessed apneas, concerning for obstructive sleep apnea. She has an elevated Miles sleepiness score of 16 and complains of her chronic fatigue and sleepiness affecting both her home life as well as her school work. On physical exam, she does have a Mallampati class IV exam, neck circumference 16 inches and a BMI of 73.5, all of which are often correlated with obstructive sleep apnea. I will order a HSAT in order to re-evaluate her for potential obstructive sleep apnea. She verbalized understanding and does wish to proceed with testing. Current Visit: Yes (2) CAROL (obstructive sleep apnea) Status: Acute Current Visit: Yes History of Present Illness Chief complaint: snoring and shortness of breath during sleep History of present illness: Ms. Del Cid is a pleasant 41 year old female who was admitted through the emergency room on November 25 with an acute bilateral pulmonary embolism. She has a history of recurrent PE's and has been on Xarelto therapy daily and had a IVC filter placed for treatment. She is morbidly obese and has a difficult time sleeping at night due to loud snoring and frequent nighttime awakenings feeling short of breath. Her children report that she often stops breathing during her sleep. She sleeps elevated on 2 pillows but still awakens "gasping for breath" during her sleep. Most mornings she awakens with a headache that lingers most of the morning hours. 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 Throughout the day, she is excessively fatigued and sleepy and often dozes off during breaks. She has an elevated Miles sleepiness score of 16. Her past medical history is significant for hypertension, esophageal reflux disease, anemia and morbid obesity. She reports being seen by Dr. Alves last year and was evaluated for a sleep disorder. At that time her test results were negative. However, despite the findings, her symptoms have persisted and she has gained significant weight over the past year. She is not and has 4 children at home. Home Medications Medication Instructions Recorded Confirmed Type Furosemide [Furosemide] 40 tablet PO BID 10/23/15 10/26/16 History Potassium Chloride 20 meq PO BID 10/23/15 10/26/16 History Rivaroxaban [Xarelto] 1 tablet PO BID 10/23/15 10/26/16 History Albuterol Sulfate [Proair Hfa] 2 puffs INH Q4H PRN 10/26/16 10/26/16 History Colchicine [Colcrys] 0.6 mg PO QAM 10/26/16 10/26/16 History Ferrous Sulfate 325 mg PO BID #60 tablet 10/26/16 Rx Ferrous Sulfate Tab [Feosol 325 mg PO BID 10/26/16 10/26/16 History Original Tab] Folic Acid Tab 1 mg PO DAILY #30 tablet 10/26/16 Rx Potassium Chloride Cap/Tab [K Dur] 20 meq PO DAILY #30 tablet 10/26/16 Rx Allopurinol 100 mg PO DAILY 11/25/16 11/25/16 History Ferrous Sulfate 325 mg PO DAILY 11/25/16 11/25/16 History Furosemide Tab [Lasix Tab] 40 mg PO BID DIURETIC 11/25/16 11/25/16 History Potassium Chloride Cap/Tab [K Dur] 20 meq PO DAILY 11/25/16 11/25/16 History Rivaroxaban [Xarelto] 20 mg PO DAILY 11/25/16 11/25/16 History oxyCODONE/ACETAMINOPHEN 5-325 1 tablet PO TID 11/25/16 11/25/16 History [Percocet 5-325] Allergies Allergy/AdvReac Type Severity Reaction Status Date / Time No Known Allergies Allergy Unverified 09/18/16 09:58 - Constitutional Constitutional: Present: daytime sleepiness, fatigue, headache(s), stops breathing during sleep, weight gain - EENT Nose, mouth and throat: Present: nasal congestion, sore throat - Cardiovascular Cardiovascular: Present: dyspnea on exertion, orthopnea, palpitations - Respiratory Respiratory: Present: snoring - Gastrointestinal Gastrointestinal: Present: heartburn - Genitourinary Genitourinary: Present: urinary frequency (2-3 times per night) - Musculoskeletal Musculoskeletal: Present: arthralgias, muscle weakness - Neurological Neurological: Present: paresthesias (lower extremities) Exam (Pulmonay) H&P - Constitutional Vitals: Period Temp Pulse Resp BP Sys/Masterson Pulse Ox Last 24 Hr 97.4 F-98.9 F 68-110 16-24 112-133/70-99 94-100 General appearance: morbidly obese - Head Head exam: Present: normocephalic, atraumatic - Eye Pupils: Present: GLORIA - Neck Neck exam: Absent: lymphadenopathy, thyromegaly (neck circumference 16") - Respiratory Respiratory exam: Present: clear to auscultation bilaterally - Cardiovascular Cardiovascular exam: Present: regular rate and rhythm - GI/Abdominal GI/Abdominal exam: Present: normal bowel sounds, soft. Absent: tenderness - Extremities Exam Extremities exam: Present: normal capillary refill, edema (trace edema lower extremities) - Neurological Exam Neurological exam: Present: alert, oriented X3 - Psychiatric Psychiatric exam: Present: normal affect, normal mood - Skin Skin exam: Present: warm, dry Medical,Surgical,& Family Hx - Medical History Cardio: History of: Hypertension, Cardiovascular Problems (LLE DVT 2013) Psychological: History of: Anxiety Disorders, Depression No history of: Bipolar Disorder, Schizophrenia Neurology: History of: Migraine Endocrine: History of: Dyslipidemia No history of: Diabetes Mellitus (IDDM), Diabetes Mellitus (NIDDM), Thyroid Disorder, Endocrine Cancer Respiratory: History of: Asthma, Pulmonary Embolism Genitourinary: History of: Bladder Problem (Urinary frequency) - Surgical History Abdominal Surgeries: Surgical HX of: Cholecystectomy Reproductive Surgeries: Surgical HX of;: Section, Tubal Ligation - Family History Family History: Reports;: Family Diabetes, Family Heart Disease - Social History Smoking Status: Never smoker Frequency of Alcohol Use: Rarely Type of Drug Use: None Results - Labs CBC & BMP: 11/28/16 07:18 11/28/16 07:18 Quality Measures - VTE Contraindication to Mechanical VTE Prophylaxis: Current Diagnosis of DVT - Stroke Onset of Symptoms Date: 11/25/16
[2016-11-28] MEDS: CALCIUM GLUCONATE 2,000 MG in SODIUM CHLORIDE 0.9% 100 ML IV SCH (14:38)
--- NOTE | 2016-11-28 14:44 | Nephrology Consult Note ---
History of Present Illness Chief complaint: Hypomagnesemia History of present illness: Ms. Del Cid is a 41 year old female whom we are asked to see with hypomagnesemia , hypocalcemia, and hypokalemia. She presented with pulmonary emboli and DVT in the right leg. She underwent TPA infusion directly into the pulmonary arteries and had a good result from that. She had been on Lasix as an outpatient but none since admission. She was also not taking proton pump inhibitors as an outpatient but has been since admission. There is no family history of metabolic derangements including a low potassium magnesium and calcium according to the patient. She does have a history of gout and has developed an acute flare since she has been in the hospital currently being treated with steroids. On exam she is an obese lady, in no distress, chest is clear, no edema is present. Laboratories reviewed she has the above described problems as well as a pancytopenia which is being evaluated. Negative JILLIAN. Uric acid 9.0 Impression low serum magnesium, calcium, potassium with normal renal function. Hypoalbuminemia. Plan: We will collect a 24-hour urine to measure the loss of these constituents and also measure proteinuria. I think she should come off PPIs and use Pepcid for now in view of the hypomagnesemia. I agree with the intravenous magnesium replacement that is ongoing. If this is all due to the hypomagnesemia, it should correct with normal serum magnesium. It does however seem unlikely that chronic use of Lasix would have produced such a profound hypomagnesemia. Home Medications Medication Instructions Recorded Confirmed Type Furosemide [Furosemide] 40 tablet PO BID 10/23/15 10/26/16 History Potassium Chloride 20 meq PO BID 10/23/15 10/26/16 History Rivaroxaban [Xarelto] 1 tablet PO BID 10/23/15 10/26/16 History Albuterol Sulfate [Proair Hfa] 2 puffs INH Q4H PRN 10/26/16 10/26/16 History Colchicine [Colcrys] 0.6 mg PO QAM 10/26/16 10/26/16 History Ferrous Sulfate 325 mg PO BID #60 tablet 10/26/16 Rx Ferrous Sulfate Tab [Feosol 325 mg PO BID 10/26/16 10/26/16 History Original Tab] Folic Acid Tab 1 mg PO DAILY #30 tablet 10/26/16 Rx Potassium Chloride Cap/Tab [K Dur] 20 meq PO DAILY #30 tablet 10/26/16 Rx Allopurinol 100 mg PO DAILY 11/25/16 11/25/16 History Ferrous Sulfate 325 mg PO DAILY 11/25/16 11/25/16 History Furosemide Tab [Lasix Tab] 40 mg PO BID DIURETIC 11/25/16 11/25/16 History Potassium Chloride Cap/Tab [K Dur] 20 meq PO DAILY 11/25/16 11/25/16 History Rivaroxaban [Xarelto] 20 mg PO DAILY 11/25/16 11/25/16 History oxyCODONE/ACETAMINOPHEN 5-325 1 tablet PO TID 11/25/16 11/25/16 History [Percocet 5-325] Allergies Allergy/AdvReac Type Severity Reaction Status Date / Time No Known Allergies Allergy Unverified 09/18/16 09:58 Medical,Surgical,& Family Hx - Medical History Cardio: History of: Hypertension, Cardiovascular Problems (LLE DVT 2013) Psychological: History of: Anxiety Disorders, Depression No history of: Bipolar Disorder, Schizophrenia Neurology: History of: Migraine Endocrine: History of: Dyslipidemia No history of: Diabetes Mellitus (IDDM), Diabetes Mellitus (NIDDM), Thyroid Disorder, Endocrine Cancer Respiratory: History of: Asthma, Pulmonary Embolism Genitourinary: History of: Bladder Problem (Urinary frequency) - Surgical History Abdominal Surgeries: Surgical HX of: Cholecystectomy Reproductive Surgeries: Surgical HX of;: Section, Tubal Ligation - Family History Family History: Reports;: Family Diabetes, Family Heart Disease - Social History Smoking Status: Never smoker Frequency of Alcohol Use: Rarely Type of Drug Use: None Review of Systems 12 point system: reviewed and no additional remarkable complaints except as stated Exam - Vital Signs Vital signs: Period Temp Pulse Resp BP Sys/Masterson Pulse Ox Last 24 Hr 97.4 F-98.8 F 68-110 16-20 112-133/70-95 94-100 - General Appearance General appearance: well-developed, well-nourished, appears started age, obese EENT: ATNC Neck: no JVD, no thyromegaly, no carotid bruit, supple Respiratory: no kyphosis, no scoliosis Cardiology: no murmurs, no rub, no gallops, no edema, regular rate, regular rhythm, normal S1, normal S2 Gastrointestinal: normoactive bowel sounds Integumentary: no rash, warm and dry Neurologic: no focal deficit, no asterixis, alert and oriented x3, reflexes 2+ and symmetric, gait normal, strength 5/5 Musculoskeletal: no deformities, no erythema, no cyanosis, no clubbing Psychiatric: mood/affect appropriate, cooperative Results - Labs CBC & BMP: 11/28/16 07:18 11/28/16 07:18 Assessment and Plan - Time spent with patient Time spent with patient: Greater than 30 minutes (1) Hypocalcemia Status: Acute Current Visit: Yes (2) Hypomagnesemia Status: Acute Current Visit: Yes (3) Hypokalemia Status: Acute Current Visit: Yes (4) Hypoalbuminemia Status: Acute Current Visit: Yes (5) Gout Status: Chronic Current Visit: Yes Qualifiers: Gout site: ankle Specialty Discharge - Follow Up or Referrals - Speciality Discharge Instructions Nephrology Instructions: 24 hour urine for protein creatinine, magnesium, calcium. Switch to Pepcid from pantoprazole because of hypomagnesemia.
[2016-11-28 15:22] LABS: Partial Thromboplastin Time 39.8 SECS (0-40)
--- NOTE | 2016-11-28 15:59 | Gastrointestinal Consult Note ---
Assessment and Plan (1) Microcytic anemia Status: Acute Assessment and plan: This patient does have a microcytic anemia as part of pancytopenia, currently being worked up by Dr. Napoles. She needs to be on anticoagulation for her bilateral DVTs and pulmonary emboli. Other than maximally suppressing her acidity there is really not much to do at this point as she is not frankly bleeding that I can tell. We will do a tagged red blood cell scan to look for overt GI bleeding, but she has got a stool study that shows that she is guaiac negative and a much more likely source for bleeding would be her heavy menstrual periods which have already been noted while on Xarelto. I believe this is more likely the cause of her iron deficiency. Her GI symptoms are simply not very severe at this point and she has not had any black stools or hematemesis or bright red blood per rectum although has noted some pinkish tinge to some of her 2-3 bowel movements per day. Again I note that she was guaiac negative on my physical exam. We will obtain the bleeding scan, continue guaiac her stools upon occasion but I am not going to aggressively ask for upper or lower endoscopy at this point as she starts actively demonstrated GI bleed. We really cannot stop her anticoagulation unless absolutely necessary. If we need to stop this might be a good idea to put a [place] filter in place in order to protect her from further pulmonary emboli. Current Visit: Yes (2) GERD (gastroesophageal reflux disease) Status: Acute Assessment and plan: She does have some low-grade reflux and has been switched off from her PPIs to Pepcid due to the hypomagnesemia. We will continue to follow magnesium levels while she is here in the hospital and see how she does on the Pepcid alone. Current Visit: Yes (3) Diarrhea Status: Acute Assessment and plan: Patient may have low-grade IBS. She is certainly not having a large amount of rectal bleeding. The diarrhea is her usual baseline approximately 2-3 per day. If the patient begins to have significant lower GI bleeding or upper GI bleeding we can consider endoscopy after discontinuation of anticoagulation. This was discussed with the patient who is in agreement. Current Visit: Yes History of Present Illness Chief complaint: Anemia with some pink tinges in her stool and mild occasional GERD History of present illness: Ms. Del Cid is a 41 year old female who has a history of recurrent DVTs with right leg and fall 3 years ago and recurrent left leg DVT, bilateral pulmonary emboli and a hypercoagulable state with mild pulmonary hypertension. The patient has some thrombocytopenia along with anemia and a low platelet count and is currently being followed by Dr. Albin Tang, Javy Napoles, Dr. Tommie Rome and Dr. Jessica Mcdonald. I am being consulted because of her anemia to see if there is GI component. The patient does have some mild reflux symptoms for which she occasionally takes antireflux medication. She estimates this is once every several weeks, certainly not 3 times per week. She has noticed a scant amount of pinkish discoloration to her stool at times but always thought this was in association with the anticoagulation that she had been given. She has been having some questionable compliance with her Xarelto use as it makes her periods especially heavily thought to be a more likely source of her anemia and bleeding from the GI tract she denies davon bright red blood per rectum and has not had any melena or hematemesis. She remains on anti-coagulation actively now and is about to undergo a sleep study tonight. She has not had upper or lower endoscopy. She does not have any abdominal pain. She typically has some mild diarrhea approximately 2-3 times per day. Her current medications include famotidine 20 mg daily along with ferrous sulfate 325 mg daily and magnesium sulfate. She is getting some potassium chloride and is back on her Xarelto along with 60 mg of prednisone daily (for her gout). Her white blood cell count has improved from 2000-3.5, her MCV is still low at 77.5 with a platelet count today of 52,000. Dr. Rosales is currently taking the patient off of her proton pump inhibitor and put her on Pepcid due to the concerns over hypomagnesemia, previously down to 0.9 now up to 1.2 post IV replacement. BUN and creatinine are normal at 8 0.7. Total protein and albumin are low at 5.7/ 2.5, but otherwise she has normal liver function tests. Home Medications Medication Instructions Recorded Confirmed Type Furosemide [Furosemide] 40 tablet PO BID 10/23/15 10/26/16 History Potassium Chloride 20 meq PO BID 10/23/15 10/26/16 History Rivaroxaban [Xarelto] 1 tablet PO BID 10/23/15 10/26/16 History Albuterol Sulfate [Proair Hfa] 2 puffs INH Q4H PRN 10/26/16 10/26/16 History Colchicine [Colcrys] 0.6 mg PO QAM 10/26/16 10/26/16 History Ferrous Sulfate 325 mg PO BID #60 tablet 10/26/16 Rx Ferrous Sulfate Tab [Feosol 325 mg PO BID 10/26/16 10/26/16 History Original Tab] Folic Acid Tab 1 mg PO DAILY #30 tablet 10/26/16 Rx Potassium Chloride Cap/Tab [K Dur] 20 meq PO DAILY #30 tablet 10/26/16 Rx Allopurinol 100 mg PO DAILY 11/25/16 11/25/16 History Ferrous Sulfate 325 mg PO DAILY 11/25/16 11/25/16 History Furosemide Tab [Lasix Tab] 40 mg PO BID DIURETIC 11/25/16 11/25/16 History Potassium Chloride Cap/Tab [K Dur] 20 meq PO DAILY 11/25/16 11/25/16 History Rivaroxaban [Xarelto] 20 mg PO DAILY 11/25/16 11/25/16 History oxyCODONE/ACETAMINOPHEN 5-325 1 tablet PO TID 11/25/16 11/25/16 History [Percocet 5-325] Allergies Allergy/AdvReac Type Severity Reaction Status Date / Time No Known Allergies Allergy Unverified 09/18/16 09:58 Medical,Surgical,& Family Hx - Medical History Cardio: History of: Hypertension, Cardiovascular Problems (LLE DVT 2013) Psychological: History of: Anxiety Disorders, Depression No history of: Bipolar Disorder, Schizophrenia Neurology: History of: Migraine Endocrine: History of: Dyslipidemia No history of: Diabetes Mellitus (IDDM), Diabetes Mellitus (NIDDM), Thyroid Disorder, Endocrine Cancer Respiratory: History of: Asthma, Pulmonary Embolism Genitourinary: History of: Bladder Problem (Urinary frequency) - Surgical History Abdominal Surgeries: Surgical HX of: Cholecystectomy Reproductive Surgeries: Surgical HX of;: Section, Tubal Ligation - Family History Family History: Reports;: Family Diabetes, Family Heart Disease - Social History Smoking Status: Never smoker Frequency of Alcohol Use: Rarely Type of Drug Use: None Review of systems: Constitutional: Denies fever, chills, denies nausea, and vomiting Eyes: Denies dry eyes, and scleral icterus HENT: Denies headaches Cardiovascular: Denies acute chest pain and claudication Respiratory: She does admit to recent shortness of breath, and difficulty breathing, wheezing, denies cough Gastrointestinal: As noted in the HPI Genitourinary: Denies dysuria and hematuria Neurologic: Denies vision loss, and loss of sensation Musculoskeletal: Admits to some recent joint swelling, joint stiffness, and muscular weakness Psychiatric: She does have some depression but no dick symptoms Heme-Lymph: Denies easy bruising, lymph node enlargement or tenderness, night sweats, she does complain of some excessive bleeding with her menstrual periods on Xarelto. Allergies-immunologic: Denies pruritus and rhinorrhea Exam - Constitutional Vitals: Period Temp Pulse Resp BP Sys/Masterson Pulse Ox Last 24 Hr 97.4 F-98.8 F 68-105 16-20 112-133/70-95 94-100 General appearance: no acute distress, morbidly obese Exam: Constitutional: Well-developed, well-nourished, alert, and in no acute distress Head and face: Head: Normocephalic atraumatic Eyes: Conjunctiva without injection, no gross scleral icterus, pupils equal and round bilaterally Ears: Intact to conversation in both ears Nose: External appearance is normal, nares patent Mouth: Oral mucous membranes moist without erythema dentition noted to be without erosion Neck: Normal appearance, no masses or tenderness, trachea midline Thyroid: Gland midline and appropriate size for age Respiratory: Normal respiratory effort, clear to auscultation without wheezes, rhonchi or rales Cardiovascular: Regular rate and rhythm, normal S1, S2, the exam is without rubs, murmurs or gallops. Gastrointestinal: Nontender to palpation, normal active bowel sounds, large fat pannus is noted consistent with morbid obesity, tone normal without rigidity or guarding, no masses present, there is a slight amount of hepatomegaly--> liver noted 1 cm below the costal margin, no spleen tip felt. Patient does not have any tinges of blood on her rectal examination, small internal hemorrhoids are palpated. There is good tone in the rectum Lymphatic: Neck without adenopathy, axilla without lymphadenopathy present Musculoskeletal: Right and left lower extremities, but the patient does have some mild evidence of evidence of edema left greater than right side to my exam Skin and subcutaneous tissue: No rashes or ulcerations noted, normal skin turgor, digits and nails without clubbing/cyanosis/deformities. Cross noted on lower leg tattoo. Neurologic: The patient is grossly oriented to person place and time, cranial nerves show tongue movements are normal with normal tongue extrusion midline, light touch sensation is intact. Psychiatric: No hallucinations or delusions are present, does not appear depressed Results - Labs CBC & BMP: 11/28/16 07:18 11/28/16 07:18 Quality Measures - VTE Contraindication to Mechanical VTE Prophylaxis: Current Diagnosis of DVT - Stroke Onset of Symptoms Date: 11/25/16
--- NOTE | 2016-11-28 21:45 | Event Note ---
EMR did not allow me to cosign the [employer] note. Interviewed and examined the patient personally. Discussed findings with the nurse practitioner. I agree with the assessment and plan, with additions as below. 41 y BF, presented with bilateral PE, status post EKOS, IVC filter. Thrombocytopenia. Low Mg. -Blood pressure is stable. Tachycardia resolved, was likely compensatory. If this becomes symptomatic, may add metoprolol -Cont anticoagulation with high dose Xarelto -GI, renal workup plans noted -She did not develop significant RV dysfunction or PHTN. S/p EKOS. -FU with dr. Rome in 1 month. I will sign off. Please call with further questions.
[2016-11-29 07:30] LABS: Eosinophils % 0.6 % (0.00-10.9); Hematocrit 24.8 VOL% (35.7-47.0); Hemoglobin 8.5 GM/DL (12.0-16.0); Immature Granulocytes % 0.6 %; Immature Granulocytes Absolute 0.02 #; Lymphocytes # 1.4 10*3/uL (1.4-4.0); Lymphocytes % 41.8 % (21.3-54.2); Mean Corpuscular HGB Conc 34.3 GM/DL (32-36); Mean Corpuscular Hemoglobin 27 PG (27-34); Monocytes # 0.3 10*3/uL (0.11-0.8); Monocytes % 10.1 % (1.7-12.7); NRBC # 0.04 10*3/uL; Neutrophils # 1.5 10*3/uL (1.4-7.4); Neutrophils % 46.9 % (38.7-73.9); Platelet Count 58 T/CUMM (130-400); Red Blood Count 3.18 MC/CUMM (3.8-5.5); Red Cell Distribution Width 25.5 % (9.3-17.3); White Blood Count 3.3 T/CUMM (4-12)
--- NOTE | 2016-11-29 07:34 | Oncology Progress Note ---
Oncology Subjective PN Interval history: This lady, who apparently was aware that she had sickle trait, was admitted with pulmonary emboli and underwent TPA. When I talked with her own admission she told me she had no blood abnormalities. When I questioned her about the fact that she had sickle trait her reply was "that was just sickle trait". She was found to have pancytopenia. She was on medications at home that could potentially cause this although actually not certain of the cause of her pancytopenia. The allopurinol is being held and I am rechecking a CBC again today. I have documented previously that the patient may have medication induced leukopenia and thrombocytopenia although the blood clots could possibly be consumptive of clotting factors as well. However, she has had a normal fibrinogen and a normal INR recently so this does not suggest a consumptive process. The patient's CBC today includes white cell count 3300 with an absolute neutrophil count that is 1500. It is actually a little lower today but this is within safe range. Her hemoglobin is stable at 8.5. Her platelet count is slightly higher today at 58,000. Her last fibrinogen was done November 28, 2016 and it was 375. She had a normal PTT that same day. See my orders. I am going to check a comprehensive metabolic profile and a prothrombin time again tomorrow. I recommend continuing to leave off medicines that we have discontinued that include allopurinol and apparently colchicine as possible contributing factors to this patient's pancytopenia that appears to be improving very slowly. Today she is reasonably alert and does not appear to be in any acute distress. However, I think her ability to provide an accurate past medical history remains suspect. Exam - Constitutional Vitals: Period Temp Pulse Resp BP Sys/Masterson Pulse Ox Last 24 Hr 97.4 F-98.5 F 73-91 17-20 107-133/66-95 92-98 Results - Labs CBC & BMP: 11/29/16 07:00 11/29/16 07:00 Quality Measures - VTE Contraindication to Mechanical VTE Prophylaxis: Current Diagnosis of DVT - Stroke Onset of Symptoms Date: 11/25/16 Specialty Discharge - Follow Up or Referrals Follow up with: Cameron Rome MD [Physician] - (F/U 1 MONTH AFTER DISCHARGE WITH CBC BMP MG AND EKG)
[2016-11-29 07:50] LABS: Hypochromasia 1+; Lymphocytes 43 % (20-55); Microcytosis 1+; Nucleated Red Blood Cells 1 (0-5); Platelet Estimate Decreased; Segmented Neutrophils 46 % (50-85); Target Cells Slight; Tear Drop Cells Slight; Total Cells Counted 100
[2016-11-29 07:53] LABS: Calcium 7.3 MG/DL (8.5-10.1); Magnesium 1.9 MG/DL (1.8-2.4); Osmolality,Calculated 279.3 MOS/KG (273-304); Potassium 3.3 MMOL/L (3.5-5.1)
[2016-11-29 07:56] LABS: Albumin 2.5 G/DL (3.4-5.0); Bilirubin,Total 0.9 MG/DL (0.2-1.0); Calcium 7.1 MG/DL (8.5-10.1); Osmolality,Calculated 279.3 MOS/KG (273-304); Potassium 3.3 MMOL/L (3.5-5.1); Total Protein 5.6 G/DL (6.4-8.3)
--- NOTE | 2016-11-29 08:23 | Nephrology Progress Note ---
Nephrology - PN: Subj Interval history: Ms. Del Cid is seen in follow-up of her electrolyte abnormalities. Her magnesium level is now up to 1.9 with a calcium of 7.3 and albumin of 2.5. Serum potassium is 3.3. Overall she feels well. I think it is reasonable to begin p.o. magnesium supplementation and we have done that. She will continue with her potassium supplementation as well. She is currently not taking any diuretics and if she can do without them that will well probably help greatly with keeping her magnesium level normal. 24 hour urine is pending to measure renal losses of these elements and we will continue to follow thank you Exam (PN)-Nephrology - Vital Signs Vital signs: Period Temp Pulse Resp BP Sys/Masterson Pulse Ox Last 24 Hr 97.4 F-98.5 F 73-84 18-20 107-126/66-85 92-98 - Lab 11/29/16 07:00 11/29/16 07:00 Most recent lab results ABG pH 7.516 (7.35-7.45) H 11/25/16 11:13 ABG pCO2 36.7 MM HG (35-48) 11/25/16 11:13 ABG pO2 176.0 MM HG (80-95) H 11/25/16 11:13 ABG HCO3 30.3 MMOL/L (20-26) H 11/25/16 11:13 ABG O2 Saturation 99.3 % (95-100) 11/25/16 11:13 Calcium 7.1 MG/DL (8.5-10.1) L 11/29/16 07:00 Phosphorus 2.8 MG/DL (2.5-4.9) 11/27/16 14:35 Magnesium 1.9 MG/DL (1.8-2.4) 11/29/16 07:00 Assessment and Plan (1) Hypocalcemia Status: Acute Current Visit: Yes (2) Hypomagnesemia Status: Acute Current Visit: Yes (3) Hypokalemia Status: Acute Current Visit: Yes (4) Hypoalbuminemia Status: Acute Current Visit: Yes (5) Gout Status: Chronic Current Visit: Yes Qualifiers: Gout site: ankle Specialty Discharge - Follow Up or Referrals Follow up with: Cameron Rome MD [Physician] - (F/U 1 MONTH AFTER DISCHARGE WITH CBC BMP MG AND EKG)
--- NOTE | 2016-11-29 08:48 | Pulmonology Progress Note ---
Pulmonary - PN: Subj Interval history: This 41-year-old white female has had pulmonary emboli. 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 She does have an IVC filter in place noted on KUB. She has had TPA treatment via EKOS, and is on Xarelto. She has a pancytopenia. Dr. Napoles is evaluating that. Her hematocrit is 24 and she is going to be transfused today to give her some cushion with her being on the anticoagulants. She has a history of hypermenorrhea. We should consider having her get a hysterectomy after she has been back on anticoagulants for a month or so. She has an IVC filter in which should somewhat protect her, however she did have a pulmonary embolus despite that on this occasion. Likely she has collateral vessels. 11/28/2016 patient is less short of breath. She is on Xarelto. Her hematocrit did not come up with transfusion yesterday. Defer to hematology on that one. She does have sickle cell trait. She has a folate deficiency. She may have an iron deficiency as well. Our plans are to try to get her hematocrit up near normal so that if she bleeds while on anticoagulants it may be life- threatening. Again it may require a hysterectomy, but would need to have a satellite tv technician installer to evaluate for that obviously. 11/29/2016 being evaluated for cause of anemia. She already has an IVC filter in place. She had pulmonary emboli despite having the filter in place. Exam (Progress Note) - Constitutional Vitals: Period Temp Pulse Resp BP Sys/Masterson Pulse Ox Last 24 Hr 97.4 F-98.5 F 73-84 18-20 107-126/66-85 92-98 Exam: Patient's alert. Vital signs normal, O2 sat 96% on room air. Pupils react to light. Throat is clear. Chest sounds clear equal breath sounds. Heart normal rate rhythm no murmurs. Abdomen soft no masses. Bowel sounds present. Extremities no clubbing cyanosis edema. Calves are nontender. Results - Labs CBC & BMP: 11/29/16 07:00 11/29/16 07:00 Lab Results: I have reviewed the past 24 hour labs Assessment and Plan (1) Pulmonary thromboembolism Status: Resolved Assessment and plan: Patient has had TPA treatment, now getting Xarelto which she will need lifelong. She has an IVC filter in place. Must have had a clot to go through a collateral path. 11/28/2016 patient will need lifelong Xarelto because of recurrent DVT and noncompliance with anticoagulants. Chronic anemia will be a complicating factor. 11/29/2016 again plan for long-term anticoagulants. Patient does have IVC filter was placed previously. Current Visit: Yes (2) Pancytopenia Status: Acute Assessment and plan: Being evaluated by hematology. Getting transfusion today since hematocrit is 24 and she is on anticoagulants. Current Visit: Yes (3) Left leg DVT Status: Acute Assessment and plan: Treatment with Xarelto. 11/28/2016 this is recurrent DVT. Normally would expect lifelong anticoagulants. Patient does have an IVC umbrella, however she had a pulmonary embolus despite that. 11/29/2016 with Xarelto. Current Visit: Yes Specialty Discharge - Follow Up or Referrals Follow up with: Cameron Rome MD [Physician] - (F/U 1 MONTH AFTER DISCHARGE WITH CBC BMP MG AND EKG)
[2016-11-29] MEDS ORDERED: FAMOTIDINE 20 MG TABLET PO SCH (09:00)
[2016-11-29] MEDS: POTASSIUM CHLORIDE 20 MEQ TABLET PO SCH (09:42)
[2016-11-29] MEDS: CALCIUM CARBONATE CHEW 500 MG TABLET PO SCH ×2 (09:42→17:05)
[2016-11-29] MEDS: FERROUS SULFATE 325 MG TABLET PO SCH (09:42)
[2016-11-29] MEDS: MAGNESIUM OXIDE 400 MG TABLET PO SCH ×2 (09:42→15:38)
[2016-11-29] MEDS: predniSONE 20 MG TABLET PO SCH (09:43)
[2016-11-29] MEDS: RIVAROXABAN 15 MG TABLET PO SCH ×2 (09:43→17:05)
[2016-11-29] MEDS: FOLIC ACID 1 MG TABLET PO SCH (09:43)
[2016-11-29] MEDS: oxyCODONE/ACETAMINOPHEN 5-325 MG TABLET PO SCH ×2 (09:47→15:37)
--- NOTE | 2016-11-29 10:45 | Discharge Summary ---
<Khushboo Ramires - Last Filed: 11/29/16 11:23> Hospital Course - Hospital Course Hospital Course: Patient is a 41-year-old morbidly obese -[place] female with a history of hypertension, DVT, asthma, and pulmonary emboli that presented to the ED on with complaints of 'tingling all over', hand cramps, shortness of breath. Specialty Discharge - Follow Up or Referrals Follow up with: dr patsy [Other] - 1 Week Javy Napoles MD [Physician] - 12/13/16 9:00 am Adilson Rosales MD [Physician] - 12/14/16 1:45 pm Cameron Harrison MD [Physician] - 12/14/16 10:00 am Cameron Rome MD [Physician] - 12/29/16 8:40 am (report to office at 08:40 am for lab work and ekg then your appointment will be at 09:00am. ) Discharge Plan - Discharge Data Disposition: Disch To Home/Self Care - Discharge Medications New Calcium Carbonate Chew [Tums] 2 tablet PO BID W/MEALS #120 tablet Ergocalciferol [Drisdol] 50,000 unit PO Q7D #12 capsule Magnesium Oxide 400 mg PO TID #90 tablet Rivaroxaban [Xarelto] 15 mg PO BID W/MEALS #36 tablet predniSONE TAB [PredniSONE] 40 mg PO DAILY #12 tablet Famotidine Tab [Pepcid Tab] 20 mg PO BID #60 tablet Continue Albuterol Sulfate [Proair Hfa] 2 puffs INH Q4H PRN PRN Reason: Shortness Of Breath/Wheezing Ferrous Sulfate 325 mg PO BID #60 tablet Folic Acid Tab 1 mg PO DAILY #30 tablet oxyCODONE/ACETAMINOPHEN 5-325 [Percocet 5-325] 1 tablet PO TID Ferrous Sulfate 325 mg PO DAILY Rivaroxaban [Xarelto] 20 mg PO DAILY #30 tablet Changed Potassium Chloride 40 meq PO BID #120 tablet Discontinued Rivaroxaban [Xarelto] 1 tablet PO BID Furosemide [Furosemide] 40 tablet PO BID Potassium Chloride Cap/Tab [K Dur] 20 meq PO DAILY #30 tablet Potassium Chloride Cap/Tab [K Dur] 20 meq PO DAILY Furosemide Tab [Lasix Tab] 40 mg PO BID DIURETIC Allopurinol 100 mg PO DAILY Colchicine [Colcrys] 0.6 mg PO QAM Ferrous Sulfate Tab [Feosol Original Tab] 325 mg PO BID - Follow Up or Referral Follow Up: dr patsy [Other] - 1 Week Javy Napoles MD [Physician] - 12/13/16 9:00 am Adilson Rosales MD [Physician] - 12/14/16 1:45 pm Cameron Harrison MD [Physician] - 12/14/16 10:00 am Cameron Rome MD [Physician] - 12/29/16 8:40 am (report to office at 08:40 am for lab work and ekg then your appointment will be at 09:00am. ) Lucas Jaramillo MD [Physician] - 2 Weeks (needs hysterectomy) - Forms/Instructions Forms: Acute Care Work/School Release Instructions: Pulmonary Embolism (DC), Hypokalemia (DC), Deep Venous Thrombosis (DC), 24 Hour Urine Collection (GEN), Inferior Vena Cava Filter Placement (DC), Hypomagnesemia (DC) Exam - Constitutional Vitals: Period Temp Pulse Resp BP Sys/Masterson Pulse Ox Last 24 Hr 97.4 F-98.5 F 73-84 18-20 107-126/66-85 92-98 Discharge Results Procedures and tests throughout hospitalization: Pending Orders 11/28/16 14:22 Calcium 24 Hour Urine Routine Creatinine 24 Hr Urine Routine Magnesium 24 Hour Urine Routine Total Protein 24 Hr Urine Routine 11/28/16 14:45 Occult Blood, Stool Stat 11/30/16 04:00 BMP w/ Mg [Basic Metabolic Panel w/Mg] IN AM Comp Blood Count Auto Diff IN AM Comp Blood Count Auto Diff IN AM Comprehensive Metabolic Panel IN AM Comprehensive Metabolic Panel IN AM LDH [Lactate Dehydrogenase] IN AM LDH [Lactate Dehydrogenase] IN AM Magnesium IN AM Prothrombin Time INR IN AM 12/01/16 04:00 BMP w/ Mg [Basic Metabolic Panel w/Mg] IN AM Comp Blood Count Auto Diff IN AM Comp Blood Count Auto Diff IN AM Comprehensive Metabolic Panel IN AM LDH [Lactate Dehydrogenase] IN AM Magnesium IN AM 12/02/16 04:00 Comp Blood Count Auto Diff IN AM Comp Blood Count Auto Diff IN AM Comprehensive Metabolic Panel IN AM 12/03/16 04:00 Comp Blood Count Auto Diff IN AM 12/04/16 04:00 Comp Blood Count Auto Diff IN AM 12/05/16 04:00 Comp Blood Count Auto Diff IN AM Labs on day of discharge: Labs from last 24 hours 11/29/16 11/29/16 11/29/16 07:00 07:00 07:00 WBC 3.3 L RBC 3.18 L Hgb 8.5 L Hct 24.8 L MCV 78.0 L MCH 27 MCHC 34.3 RDW 25.5 H Plt Count 58 L Neut % (Auto) 46.9 Lymph % (Auto) 41.8 [place] % (Auto) 10.1 Eos % (Auto) 0.6 Baso % (Auto) 0.0 Neut # (Auto) 1.5 Lymph # (Auto) 1.4 [place] # (Auto) 0.3 Eos # (Auto) 0.0 Baso # (Auto) 0.0 Total Counted 100 Immature Gran % 0.6 Nucleated RBC % 1.2 Immature Gran # 0.02 Segmented Neutrophils 46 L Lymphocytes 43 Monocytes 11 Nucleated RBCs 1 Nucleated RBCs # 0.04 Platelet Estimate Decreased Hypochromasia 1+ Microcytosis 1+ Target Cells Slight Tear Drop Cells Slight Fibrinogen Circ Anticoag PTT Sodium 141 141 Potassium 3.3 L 3.3 L Chloride 104 104 Carbon Dioxide 27 27 Anion Gap 13.3 13.3 BUN 10 10 Creatinine 0.70 0.70 GFR Calculation 173 173 BUN/Creatinine Ratio 14.00 14.00 Glucose 91 94 Calculated Osmolality 279.3 279.3 Calcium 7.3 L 7.1 L Magnesium 1.9 Total Bilirubin 0.90 AST 16 ALT 15 Alkaline Phosphatase 90 Lactate Dehydrogenase 564 H Total Protein 5.6 L Albumin 2.5 L Globulin 3.1 Albumin/Globulin Ratio 0.8 L 11/28/16 15:06 WBC RBC Hgb Hct MCV MCH MCHC RDW Plt Count Neut % (Auto) Lymph % (Auto) [place] % (Auto) Eos % (Auto) Baso % (Auto) Neut # (Auto) Lymph # (Auto) [place] # (Auto) Eos # (Auto) Baso # (Auto) Total Counted Immature Gran % Nucleated RBC % Immature Gran # Segmented Neutrophils Lymphocytes Monocytes Nucleated RBCs Nucleated RBCs # Platelet Estimate Hypochromasia Microcytosis Target Cells Tear Drop Cells Fibrinogen 375 Circ Anticoag PTT 39.8 Sodium Potassium Chloride Carbon Dioxide Anion Gap BUN Creatinine GFR Calculation BUN/Creatinine Ratio Glucose Calculated Osmolality Calcium Magnesium Total Bilirubin AST ALT Alkaline Phosphatase Lactate Dehydrogenase Total Protein Albumin Globulin Albumin/Globulin Ratio DS: Provider Date of admission: 11/25/16 13:12 Primary care physician: . No PCP Attending physician on admission: Jun Carpio MD Consults: 11/26/16 09:10 Consult to Physician [CONS] Routine Comment: pancytopenia Consulting Provider: Javy Napoles Person Notified: Dr. Napoles Date Notified: 11/26/16 Time Notified: 10:37 11/26/16 18:22 Consult to Physician [CONS] Routine Comment: Consulting Provider: Albin Tang Person Notified: Clyde Date Notified: 11/26/16 Consult Notification Comment: Dr. Rome talked to Dr. Tang and Dr. Tang has already seen patient 11/27/16 12:39 Consult to Sleep Center [CONS] Routine Reason for Sleep Center: Sleep Center Physician Consult Comment: carol 11/28/16 09:27 Consult to Physician [CONS] Routine Comment: persistent anemia Consulting Provider: Cameron Harrison When should Consulting Provider be notified: Now Consult to Specialist Group: Gastroenterology Person Notified: SUPRIYA Date Notified: 11/28/16 Time Notified: 10:25 11/28/16 11:29 Consult to Physician [CONS] Routine Comment: persistent low K, CA, MG Consulting Provider: Adilson Rosales Consult to Specialist Group: Nephrology Person Notified: SUPRIYA Date Notified: 11/28/16 Time Notified: 12:15 Discharging clinician: Khushboo Ramires NP <Jessica Mcdonald R - Last Filed: 11/29/16 17:07> Hospital Course - Hospital Course Hospital Course: Patient was noncompliant with her Xarelto especially during her heavy menses. Patient should actually have a hysterectomy. Patient has severe pancytopenia. She came to the hospital with complaints of shortness of breath and was found to have significant bilateral PEs. Dr. Rome was consulted and patient was taken for Ekos. Patient did well with the dose and then she was restarted on Xarelto 15 mg twice a day for the next 21 days then she is to transition over to 20 mg once a day. Patient has also had evidence of a left lower extremity peroneal and popliteal vein thrombus. For her pancytopenia we consulted Dr. Napoles regarding evaluation. He thought some of her thrombocytopenia was secondary to her allopurinol now and colchicine that she was taking for her gout. This was discontinued. Patient did have folic acid deficiency which is being replaced but her B12 is adequate. Patient received 2 units of packed red blood cells and hemoglobin stabilized at 8.5. Dr. Harrison consulted and wanted her to have a bleeding scan. We have lost IV access and the it stuck patient several times until she was frustrated. Patient's hemoglobin is currently stable to go home. She will follow up with Dr. Napoles and Dr. Harrison. I also consulted Dr. Jimenez Rosales because her magnesium potassium calcium and vitamin D were all low. Her PTH was elevated at 303. We have replaced all of these electrolytes but do not know why they are needing to be replaced. Dr. Ariana Rosales will follow her and she needs weekly labs to be monitored by Dr. Rosales or her primary care physician. She will go home on replacement. Patient has heavy periods and needs to have a hysterectomy will send her to Dr. Jaramillo to discuss. Patient should remain on full anticoagulation for at least 3 months prior to considering a hysterectomy at this time. - Time spent with patient Time with patient DS: Greater than 30 minutes (60 min) Diagnosis - Discharge Diagnosis (1) Pulmonary thromboembolism Status: Resolved (2) Left leg DVT Status: Acute (3) Hypocalcemia Status: Acute (4) Menorrhagia Status: Chronic (5) CAROL (obstructive sleep apnea) Status: Acute (6) Hypokalemia Status: Acute (7) Morbid obesity Status: Chronic (8) Pancytopenia Status: Acute (9) Hypomagnesemia Status: Acute (10) Vitamin D deficiency Status: Acute Discharge Plan - Discharge Data Condition at Discharge: Stable Discharge Diet: low fat, low cholesterol Activity: resume usual activities as tolerated Hygiene: no restrictions Weight Bearing at Discharge: full weight bearing Driving: no restrictions - Forms/Instructions Additional Discharge Instructions: please give her instruction on how to return 24 hour urine collection. needs weekly labs for potassium, magnesium and calcium Exam - Constitutional General appearance: no acute distress, morbidly obese - Respiratory Respiratory exam: Present: clear to auscultation bilaterally. Absent: rhonchi, wheezes - Cardiovascular Cardiovascular exam: Present: regular rate and rhythm. Absent: systolic murmur - GI/Abdominal GI/Abdominal exam: Present: normal bowel sounds, soft. Absent: tenderness - Extremities Exam Extremities exam: Present: normal inspection, normal capillary refill - Neurological Exam Neurological exam: Present: alert, oriented X3
[2016-11-29] MEDS: CALCIUM GLUCONATE 2,000 MG in SODIUM CHLORIDE 0.9% 100 ML IV SCH (10:53)
--- NOTE | 2016-11-29 13:26 | Sleep Medicine Progress Note ---
Assessment and Plan (1) Unspecified sleep apnea Status: Acute Current Visit: Yes (2) CAROL (obstructive sleep apnea) Status: Acute Assessment and plan: I reviewed the results of Ms. Del Cid's HST in detail along with the risks and benefits of treatment. She verbalized understanding and wishes to pursue treatment of her underlying obstructive sleep apnea. She is being discharged today so she will be scheduled for an in-house CPAP titration at her earliest convenience. Follow up in sleep clinic will be routine to ensure compliance with therapy. Current Visit: Yes Sleep Medicine Subjective Interval history: Ms. Del Cid underwent HST last night due to worsening shortness of breath during sleep. He had previously undergone sleep evaluation at the [facility] sleep lab in 2016 and tested negative for CAROL with a normal AHI of 0.2/hour. Since that time she had gained significant weight of at least 60lbs and changes in her health. She was set up for HSAT last night and did test positive for mild obstructive sleep apnea with a diagnostic AHI of 15.3 and oxygen desaturations as low as 83%. She is in the process of being discharged but will need to be set up in sleep clinic to the treatment can be initiated. Exam (Progress Note) - Constitutional Vitals: Period Temp Pulse Resp BP Sys/Masterson Pulse Ox Last 24 Hr 98.0 F-98.5 F 73-93 18-20 107-126/66-85 92-98 Results - Labs CBC & BMP: 11/29/16 07:00 11/29/16 07:00 Specialty Discharge - Follow Up or Referrals Follow up with: dr patsy [Other] - 1 Week Javy Napoles MD [Physician] - 12/13/16 9:00 am Adilson Rosales MD [Physician] - 12/14/16 1:45 pm Cameron Harrison MD [Physician] - 12/14/16 10:00 am Cameron Rome MD [Physician] - 12/29/16 8:40 am (report to office at 08:40 am for lab work and ekg then your appointment will be at 09:00am. )
[2016-11-29 17:01] VITALS: BP 112/83
[2016-11-29 19:56] LABS: Creatinine 24 Hr Urine Result 1.1 G/24HR (0.60-1.80)
== END 2016-11-29 18:20 | disposition home or self-care (01) | DRG 176 ==
LOC: N.ED 10:09 → N.EDINP 13:11 → SUATTDRO 13:11 → N.CC 13:36 → N.TELEN 11-27 15:43
PROVIDERS: ADMIT Internal Medicine; ATTEND Internal Medicine

== ENCOUNTER 2019-02-11 18:04 | Inpatient (IN) ==
[2019-02-11] MEDS ORDERED: MORPHINE 4 MG/1 ML VIAL IV STA (22:43)
[2019-02-11] MEDS ORDERED: ONDANSETRON 4 MG/2 ML VIAL IV ONE (22:43)
[2019-02-11] MEDS ORDERED: ONDANSETRON 4 MG/2 ML VIAL IM STA (23:44)
[2019-02-11] MEDS ORDERED: MORPHINE 4 MG/1 ML VIAL IM STA (23:44)
[2019-02-12 00:11] LABS: Albumin 2.8 G/DL (3.4-5.0); Bilirubin,Total 0.9 MG/DL (0.2-1.0); Calcium 7.9 MG/DL (8.5-10.1); Osmolality,Calculated 272.7 MOS/KG (273-304); Total Protein 6.7 G/DL (6.4-8.3); Troponin I < 0.015 NG/ML (0.00-0.045)
[2019-02-12 00:21] LABS: Basophils % 0.2 % (0.0-0.8); Eosinophils # 0.1 10*3/uL (0.0-0.87); Eosinophils % 1.6 % (0.00-10.9); Hematocrit 25.8 VOL% (35.7-47.0); Hemoglobin 8.6 GM/DL (12.0-16.0); Immature Granulocytes % 0.4 %; Immature Granulocytes Absolute 0.02 #; Lymphocytes # 0.9 10*3/uL (1.4-4.0); Lymphocytes % 16.1 % (21.3-54.2); Mean Corpuscular HGB Conc 33.3 GM/DL (32-36); Mean Corpuscular Volume 80.6 FL (87-102); Mean Platelet Volume 9.5 FL (9.6-12.0); Monocytes % 1.3 % (1.7-12.7); Neutrophils % 80.4 % (38.7-73.9); Platelet Count 276 T/CUMM (130-400); Red Cell Distribution Width 28.9 % (9.3-17.3); White Blood Count 5.6 T/CUMM (4-12)
[2019-02-12 00:56] LABS: Platelet Estimate Adequate
[2019-02-12] MEDS ORDERED: ALBUTEROL 2.5 MG/3 ML NEB RESP TX PRN (02:49)
[2019-02-12] MEDS ORDERED: FLUTICASONE 50 MCG NASAL SPRAY 16 GM BOTTLE BOTH NARES PRN (02:49)
[2019-02-12 04:05] LABS: Calcium 8.1 MG/DL (8.5-10.1); Osmolality,Calculated 278.3 MOS/KG (273-304)
[2019-02-12] MEDS: ONDANSETRON 4 MG/2 ML VIAL IV PRN ×4 (04:33→17:14)
[2019-02-12] MEDS: SODIUM CHLORIDE 0.45% 1,000 ML IV SCH ×2 (04:33→23:18)
[2019-02-12] MEDS: ACETAMINOPHEN 325 MG TABLET PO PRN ×2 (05:43→23:16)
[2019-02-12 06:51] LABS: Basophils % 0.5 % (0.0-0.8); Eosinophils # 0.1 10*3/uL (0.0-0.87); Eosinophils % 1.7 % (0.00-10.9); Hemoglobin 9.6 GM/DL (12.0-16.0); Immature Granulocytes % 0.8 %; Immature Granulocytes Absolute 0.05 #; Lymphocytes # 1.1 10*3/uL (1.4-4.0); Lymphocytes % 16.4 % (21.3-54.2); Mean Corpuscular Volume 86.4 FL (87-102); Monocytes % 1.5 % (1.7-12.7); Neutrophils % 79.1 % (38.7-73.9); Platelet Count 356 T/CUMM (130-400); Red Blood Count 3.59 MC/CUMM (3.8-5.5); Red Cell Distribution Width 29.2 % (9.3-17.3); White Blood Count 6.7 T/CUMM (4-12)
[2019-02-12 07:16] LABS: Hypochromasia 1+; Lymphocytes 22 % (20-55); Platelet Estimate Adequate; Segmented Neutrophils 77 % (50-85); Total Cells Counted 100
[2019-02-12] MEDS ORDERED: POTASSIUM CHLORIDE 20 MEQ TABLET PO ONE (07:33)
[2019-02-12] MEDS ORDERED: RIVAROXABAN 20 MG TABLET PO SCH (09:00)
[2019-02-12] MEDS: MAGNESIUM OXIDE 400 MG TABLET PO SCH ×2 (09:43→14:40)
[2019-02-12] MEDS: PANTOPRAZOLE 40 MG TABLET PO SCH (09:44)
[2019-02-12 10:17] LABS: % Iron Saturation 91.1 % (18-50); Ferritin 49.4 ng/ml (8-252)
[2019-02-12 10:23] LABS: Folate 1.4 NG/ML (5.4-24.0)
[2019-02-12 10:52] LABS: Bilirubin,Direct 0.35 MG/DL (0.0-0.20); Bilirubin,Indirect 1.1 MG/DL (0.0-1.0); Bilirubin,Total 1.4 MG/DL (0.2-1.0); Total Protein 7.5 G/DL (6.4-8.3)
[2019-02-12] MEDS ORDERED: CYANOCOBALAMIN 1000 MCG/1 ML VIAL IM ONE (11:02)
[2019-02-12 11:46] LABS: Hepatitis B Core IgM Quant < 0.05 Index; Hepatitis B Surface Ag Quant < 0.10 Index; Hepatitis B Surface Ag Result Negative (Negative); Hepatitis C Virus Ab Quant 0.45 Index; Hepatitis C Virus Ab Result Negative (Negative)
[2019-02-12 17:44] LABS: Apearance,Urine CLEAR (Clear); Bacteria,Urine Occasional /HPF (Few); Bilirubin,Urine Negative (Negative); Blood, Urine Negative (Negative); Glucose,Urine (UA) Negative (Negative); Ketones,Urine Negative (Negative); Mucus,Urine Occasional /LPF (Occasional); Nitrite,Urine Negative (Negative); Protein,Urine Negative; RBC,Urine 1 /HPF (0-4); Squamous Epithelial Cell,Urine Few /HPF (0-10); Urine Color Yellow (Yellow); Urine Specific Gravity > 1.060 (1.001-1.035); Urine Urobilinogen < 2.0 EU/DL (0.2-1.0); WBC,Urine <1 /HPF (0-6)
[2019-02-12] MEDS ORDERED: FOLIC ACID 1 MG TABLET PO SCH (21:00)
[2019-02-12] MEDS: MAGNESIUM CHLORIDE 64 MG TABLET PO SCH (21:49)
[2019-02-12] MEDS: MULTIVITAMIN (CENTRUM) TABLET PO SCH (21:49)
[2019-02-13 05:09] LABS: Basophils % 0.3 % (0.0-0.8); Eosinophils # 0.3 10*3/uL (0.0-0.87); Eosinophils % 4.8 % (0.00-10.9); Hematocrit 26.2 VOL% (35.7-47.0); Hemoglobin 8.4 GM/DL (12.0-16.0); Immature Granulocytes % 0.3 %; Immature Granulocytes Absolute 0.02 #; Lymphocytes # 1.3 10*3/uL (1.4-4.0); Lymphocytes % 21.8 % (21.3-54.2); Mean Corpuscular HGB Conc 32.1 GM/DL (32-36); Mean Corpuscular Volume 83.4 FL (87-102); Mean Platelet Volume 9.4 FL (9.6-12.0); Monocytes % 1.4 % (1.7-12.7); Neutrophils % 71.4 % (38.7-73.9); Platelet Count 266 T/CUMM (130-400); Red Blood Count 3.14 MC/CUMM (3.8-5.5); Red Cell Distribution Width 28.4 % (9.3-17.3); White Blood Count 5.8 T/CUMM (4-12)
[2019-02-13 05:29] LABS: Hypochromasia 1+; Ovalocytes Slight; Platelet Estimate Adequate
[2019-02-13 05:31] LABS: Calcium 8.1 MG/DL (8.5-10.1); Osmolality,Calculated 270.7 MOS/KG (273-304)
[2019-02-13 05:40] LABS: Bilirubin,Direct 0.36 MG/DL (0.0-0.20); Bilirubin,Indirect 1.2 MG/DL (0.0-1.0); Bilirubin,Total 1.6 MG/DL (0.2-1.0); Total Protein 6.9 G/DL (6.4-8.3)
[2019-02-13] MEDS ORDERED: MAGNESIUM SULF RIDER 2 GM in PREMIX 1 EACH IV ONE (07:23)
[2019-02-13] MEDS: POTASSIUM CHLORIDE 20 MEQ TABLET PO SCH ×4 (09:13→16:55)
[2019-02-13] MEDS: MULTIVITAMIN (CENTRUM) TABLET PO SCH ×2 (09:14→21:20)
[2019-02-13] MEDS: MAGNESIUM CHLORIDE 64 MG TABLET PO SCH ×3 (09:14→21:20)
[2019-02-13] MEDS: PANTOPRAZOLE 40 MG TABLET PO SCH (09:14)
[2019-02-13] MEDS: BISACODYL 5 MG TABLET PO SCH ×3 (10:20→17:00)
[2019-02-13] MEDS ORDERED: POTASSIUM CHLORIDE 20 MEQ TABLET PO PRN (17:26)
[2019-02-13] MEDS ORDERED: POTASSIUM CHLORIDE RIDER 10 MEQ in PREMIX 1 EACH IV PRN (17:26)
[2019-02-13] MEDS ORDERED: MAGNESIUM SULF RIDER 2 GM in PREMIX 1 EACH IV PRN (17:26)
[2019-02-13] MEDS ORDERED: MAGNESIUM SULF RIDER 4 GM in PREMIX 1 EACH IV PRN (17:26)
[2019-02-13] MEDS ORDERED: POLYETHYLENE GLYCOL POWDER 255 GM BOTTLE PO ONE (18:00)
[2019-02-13] MEDS ORDERED: MAGNESIUM CITRATE 300 ML BOTTLE PO ONE (21:00)
[2019-02-14] MEDS: BISACODYL 5 MG TABLET PO SCH (02:07)
[2019-02-14] MEDS ORDERED: LACTATED RINGERS 1,000 ML IV ONE (06:45)
[2019-02-14 08:21] LABS: Calcium 8.2 MG/DL (8.5-10.1); Osmolality,Calculated 268.8 MOS/KG (273-304)
[2019-02-14 08:45] LABS: Basophils % 0.2 % (0.0-0.8); Eosinophils # 0.2 10*3/uL (0.0-0.87); Eosinophils % 3.5 % (0.00-10.9); Hematocrit 22.6 VOL% (35.7-47.0); Hematocrit 22.9 VOL% (35.7-47.0); Hemoglobin 7.4 GM/DL (12.0-16.0); Hemoglobin 7.6 GM/DL (12.0-16.0); Immature Granulocytes % 0.2 %; Immature Granulocytes Absolute 0.01 #; Lymphocytes # 0.9 10*3/uL (1.4-4.0); Lymphocytes % 18.9 % (21.3-54.2); Mean Corpuscular HGB Conc 32.3 GM/DL (32-36); Mean Platelet Volume 9.2 FL (9.6-12.0); Monocytes % 1.8 % (1.7-12.7); Neutrophils % 75.4 % (38.7-73.9); Platelet Count 211 T/CUMM (130-400); Red Blood Count 2.76 MC/CUMM (3.8-5.5); Red Cell Distribution Width 28.3 % (9.3-17.3); White Blood Count 4.5 T/CUMM (4-12)
[2019-02-14] MEDS ORDERED: PROPOFOL 200 MG/20 ML VIAL IV ONE (09:00)
[2019-02-14] MEDS ORDERED: ETOMIDATE 20 MG/10 ML VIAL IV ONE (09:00)
[2019-02-14] MEDS ORDERED: LIDOCAINE 1% 5 ML VIAL ONE (09:00)
[2019-02-14] MEDS ORDERED: SODIUM CHLORIDE 0.9% 1,000 ML IV PRN (09:00)
[2019-02-14] MEDS ORDERED: HYOSCYAMINE 0.125 MG TABLET PO PRN (09:02)
[2019-02-14 09:11] LABS: Eosinophils 3 % (0-10); Hypochromasia 1+; Lymphocytes 14 % (20-55); Platelet Estimate Adequate; Segmented Neutrophils 81 % (50-85); Total Cells Counted 100
[2019-02-14] MEDS: COLESTIPOL 1 GM TABLET PO SCH ×2 (09:49→20:46)
[2019-02-14] MEDS: PANTOPRAZOLE 40 MG TABLET PO SCH (09:49)
[2019-02-14] MEDS: MULTIVITAMIN (CENTRUM) TABLET PO SCH ×2 (09:50→20:46)
[2019-02-14] MEDS: MAGNESIUM CHLORIDE 64 MG TABLET PO SCH ×3 (09:50→20:46)
[2019-02-14] MEDS: ONDANSETRON 4 MG/2 ML VIAL IV PRN (12:49)
[2019-02-15 05:33] LABS: Basophils % 0.4 % (0.0-0.8); Eosinophils # 0.1 10*3/uL (0.0-0.87); Hematocrit 31.2 VOL% (35.7-47.0); Hemoglobin 10.4 GM/DL (12.0-16.0); Immature Granulocytes % 0.4 %; Immature Granulocytes Absolute 0.02 #; Lymphocytes # 1.7 10*3/uL (1.4-4.0); Lymphocytes % 33.5 % (21.3-54.2); Mean Corpuscular HGB Conc 33.3 GM/DL (32-36); Mean Platelet Volume 10.1 FL (9.6-12.0); NRBC # 0.07 10*3/uL; Neutrophils % 60.7 % (38.7-73.9); Platelet Count 160 T/CUMM (130-400); Red Blood Count 3.76 MC/CUMM (3.8-5.5); Red Cell Distribution Width 24.9 % (9.3-17.3)
[2019-02-15 06:09] LABS: Calcium 8.2 MG/DL (8.5-10.1); Osmolality,Calculated 273.5 MOS/KG (273-304)
[2019-02-15 06:25] LABS: Anisocytosis 1+; Hypochromasia 1+; Microcytosis 1+; Ovalocytes Slight; Target Cells Slight
[2019-02-15 06:26] LABS: Platelet Estimate Adequate; Spherocytes Slight
[2019-02-15] MEDS ORDERED: COLESTIPOL 1 GM TABLET PO SCH (08:06)
[2019-02-15] MEDS: MULTIVITAMIN (CENTRUM) TABLET PO SCH (08:42)
[2019-02-15] MEDS: PANTOPRAZOLE 40 MG TABLET PO SCH (08:42)
[2019-02-15] MEDS ORDERED: MAGNESIUM CHLORIDE 64 MG TABLET PO SCH (09:00)
[2019-02-15 13:55] VITALS: BP 122/91
== END 2019-02-15 15:10 | disposition home or self-care (01) | DRG 391 ==
LOC: N.ED 18:04 → INTOOBSV 02-12 02:45 → N.EDINP 02-12 02:45 → N.5E 02-12 03:42
PROVIDERS: ADMIT Internal Medicine Cardiovascular Disease; ATTEND Internal Medicine Cardiovascular Disease

== ENCOUNTER 2020-07-05 01:06 | Observation (INO) ==
[2020-07-05 01:42] LABS: Basophils % 0.2 % (0.0-0.8); Eosinophils # 0.2 10*3/uL (0.0-0.87); Eosinophils % 3.1 % (0.00-10.9); Hematocrit 29.5 VOL% (35.7-47.0); Hemoglobin 10.6 GM/DL (12.0-16.0); Immature Granulocytes % 0.2 %; Immature Granulocytes Absolute 0.01 #; Lymphocytes % 33.2 % (21.3-54.2); Mean Corpuscular HGB Conc 35.9 GM/DL (32-36); Mean Corpuscular Volume 94.2 FL (87-102); Monocytes % 10.6 % (1.7-12.7); Neutrophils % 52.7 % (38.7-73.9); Platelet Count 340 T/CUMM (130-400); Red Blood Count 3.13 MC/CUMM (3.8-5.5); Red Cell Distribution Width 19.6 % (9.3-17.3); White Blood Count 5.9 T/CUMM (4-12)
[2020-07-05 02:03] LABS: Albumin 3.1 G/DL (3.4-5.0); Bilirubin,Total 0.8 MG/DL (0.2-1.0); Calcium 8.1 MG/DL (8.5-10.1); INR 1.7; PT Patient Result 18.2 SECS (9.8-11.9); Total Protein 6.9 G/DL (6.4-8.3)
[2020-07-05 02:03] LABS: Bilirubin,Urine Negative (Negative); Blood, Urine Negative (Negative); Glucose,Urine (UA) Negative (Negative); Hyaline Casts,Urine 8 /LPF (0-3); Ketones,Urine Negative (Negative); Mucus,Urine Occasional /LPF (Occasional); Nitrite,Urine Negative (Negative); Protein,Urine Negative; RBC,Urine 1 /HPF (0-4); Squamous Epithelial Cell,Urine Occasional /HPF (0-10); Urine Appearance CLEAR (Clear); Urine Color Yellow (Yellow); Urine Specific Gravity 1.013 (1.001-1.035); Urine Urobilinogen < 2.0 EU/DL (0.2-1.0); WBC,Urine 1 /HPF (0-6)
[2020-07-05 02:06] LABS: Ferritin 449.6 ng/ml (8-252)
[2020-07-05] MEDS ORDERED: KETOROLAC 30 MG/1 ML VIAL IV STA (02:24)
[2020-07-05] MEDS ORDERED: KETOROLAC 30 MG/1 ML VIAL ONE (02:25)
[2020-07-05] MEDS ORDERED: POTASSIUM CHLORIDE INJ 40 MEQ in SODIUM CHLORIDE 0.45% 1,000 ML IV SCH (03:00)
[2020-07-05] MEDS ORDERED: MAGNESIUM SULF RIDER 2 GM in PREMIX 1 EACH IV PRN (06:22)
[2020-07-05] MEDS ORDERED: MAGNESIUM SULF RIDER 4 GM in PREMIX 1 EACH IV PRN (06:22)
[2020-07-05] MEDS ORDERED: hydrALAZINE 20 MG/1 ML VIAL IV PRN (06:23)
[2020-07-05] MEDS ORDERED: ONDANSETRON 4 MG/2 ML VIAL IV PRN (06:23)
[2020-07-05] MEDS ORDERED: DEXTROSE 50% 25 GM/50 ML VIAL IV PRN (06:23)
[2020-07-05] MEDS ORDERED: GLUCAGON 1 MG VIAL IM PRN (06:23)
[2020-07-05] MEDS ORDERED: POTASSIUM CHLORIDE 20 MEQ TABLET PO ONE ×2 (06:32→07:57)
[2020-07-05 06:53] LABS: Risk Ratio 1.43; VLDL CHOLESTEROL 18.2 MG/DL
[2020-07-05] MEDS: ACETAMINOPHEN 325 MG TABLET PO PRN ×2 (08:22→20:39)
[2020-07-05] MEDS: LACTULOSE 20 GM/30 ML UDCUP PO SCH ×3 (08:22→15:03)
[2020-07-05] MEDS ORDERED: PANTOPRAZOLE 40 MG TABLET PO SCH (09:00)
[2020-07-05] MEDS ORDERED: MINERAL OIL ENEMA 133 ML BOTTLE RECTAL ONE ×2 (10:17→15:30)
[2020-07-05 10:20] LABS: Calcium 8.8 MG/DL (8.5-10.1); Osmolality,Calculated 276.7 MOS/KG (273-304)
[2020-07-05] MEDS: POTASSIUM CHLORIDE 20 MEQ/15 ML UDCUP PO SCH ×4 (11:00→20:30)
[2020-07-05] MEDS ORDERED: SODIUM CHLORIDE 0.9% 1,000 ML IV SCH (15:00)
[2020-07-05] MEDS: POTASSIUM CHLORIDE 20 MEQ TABLET PO ONE ×2 (15:04→15:08)
[2020-07-05] MEDS: METOPROLOL TARTRATE 25 MG TABLET PO SCH ×2 (15:04→20:30)
[2020-07-05] MEDS: SODIUM CHLORIDE 0.45% 1,000 ML IV SCH (15:19)
[2020-07-05] MEDS: POLYETHYLENE GLYCOL POWDER 17 GM PACK PO SCH ×2 (16:29→20:30)
[2020-07-05] MEDS: COLESTIPOL 1 GM TABLET PO SCH (20:30)
[2020-07-05] MEDS: FERROUS SULFATE 325 MG TABLET PO SCH (20:30)
[2020-07-05] MEDS: PANTOPRAZOLE 40 MG TABLET PO SCH (20:31)
[2020-07-05] MEDS ORDERED: FUROSEMIDE 40 MG TABLET PO SCH (21:00)
[2020-07-06] MEDS: SODIUM CHLORIDE 0.45% 1,000 ML IV SCH (03:37)
[2020-07-06 07:04] LABS: Basophils % 0.5 % (0.0-0.8); Eosinophils # 0.2 10*3/uL (0.0-0.87); Eosinophils % 3.6 % (0.00-10.9); Hematocrit 28.4 VOL% (35.7-47.0); Immature Granulocytes % 0.2 %; Immature Granulocytes Absolute 0.01 #; Lymphocytes # 1.6 10*3/uL (1.4-4.0); Lymphocytes % 28.6 % (21.3-54.2); Mean Corpuscular HGB Conc 35.2 GM/DL (32-36); Mean Corpuscular Volume 96.9 FL (87-102); Mean Platelet Volume 9.1 FL (9.6-12.0); Monocytes % 11.8 % (1.7-12.7); Neutrophils % 55.3 % (38.7-73.9); Platelet Count 332 T/CUMM (130-400); Red Blood Count 2.93 MC/CUMM (3.8-5.5); Red Cell Distribution Width 19.5 % (9.3-17.3); White Blood Count 5.5 T/CUMM (4-12)
[2020-07-06 07:37] LABS: Albumin 2.8 G/DL (3.4-5.0); Bilirubin,Total 0.5 MG/DL (0.2-1.0); Total Protein 6.9 G/DL (6.4-8.3)
[2020-07-06] MEDS: COLESTIPOL 1 GM TABLET PO SCH (08:19)
[2020-07-06] MEDS: FERROUS SULFATE 325 MG TABLET PO SCH (08:19)
[2020-07-06] MEDS: METOPROLOL TARTRATE 25 MG TABLET PO SCH (08:19)
[2020-07-06] MEDS: PANTOPRAZOLE 40 MG TABLET PO SCH (08:20)
[2020-07-06] MEDS: POTASSIUM CHLORIDE 20 MEQ/15 ML UDCUP PO SCH ×2 (08:20→15:10)
[2020-07-06] MEDS: POLYETHYLENE GLYCOL POWDER 17 GM PACK PO SCH ×4 (08:20→18:07)
[2020-07-06] MEDS ORDERED: FOLIC ACID 1 MG TABLET PO SCH (09:00)
[2020-07-06] MEDS ORDERED: allopurinoL 100 MG TABLET PO SCH (09:00)
[2020-07-06] MEDS ORDERED: RIVAROXABAN 15 MG TABLET PO SCH (09:00)
[2020-07-06] MEDS ORDERED: CALCIUM (CARBONATE) 500 MG TABLET PO SCH (09:00)
[2020-07-06 09:11] LABS: Free T4 (Free Thyroxine) 1.02 NG/DL (0.76-1.46)
[2020-07-06 15:53] VITALS: BP 124/85
== END 2020-07-06 18:00 | disposition home or self-care (01) ==
LOC: N.EDINP 01:06 → N.ED 01:06 → SUATTDRO 03:24 → N.5E 11:35
PROVIDERS: ADMIT Internal Medicine; ATTEND Family Medicine

== ENCOUNTER 2020-07-16 04:37 | Observation (INO) ==
[2020-07-16] MEDS ORDERED: PANTOPRAZOLE 40 MG VIAL IV STA (05:00)
[2020-07-16] MEDS ORDERED: SODIUM CHLORIDE 0.9% 500 ML IV STA (05:00)
[2020-07-16] MEDS ORDERED: ONDANSETRON 4 MG/2 ML VIAL IV STA (05:00)
[2020-07-16] MEDS ORDERED: METOCLOPRAMIDE 10 MG/2 ML VIAL IV STA (05:00)
[2020-07-16] MEDS ORDERED: DICYCLOMINE 20 MG/2 ML AMP IM ONE (05:00)
[2020-07-16] MEDS ORDERED: MORPHINE 4 MG/1 ML VIAL IV STA (05:00)
[2020-07-16 06:45] LABS: Basophils % 0.2 % (0.0-0.8); Eosinophils # 0.2 10*3/uL (0.0-0.87); Hematocrit 28.3 VOL% (35.7-47.0); Hemoglobin 10.4 GM/DL (12.0-16.0); Immature Granulocytes % 0.4 %; Immature Granulocytes Absolute 0.04 #; Lymphocytes # 1.7 10*3/uL (1.4-4.0); Lymphocytes % 16.4 % (21.3-54.2); Mean Corpuscular HGB Conc 36.7 GM/DL (32-36); Mean Corpuscular Volume 92.2 FL (87-102); Mean Platelet Volume 10.4 FL (9.6-12.0); Monocytes % 3.5 % (1.7-12.7); Neutrophils % 77.5 % (38.7-73.9); Platelet Count 292 T/CUMM (130-400); Red Blood Count 3.07 MC/CUMM (3.8-5.5); Red Cell Distribution Width 18.5 % (9.3-17.3); White Blood Count 10.1 T/CUMM (4-12)
[2020-07-16 07:11] LABS: Alanine Aminotransferase 32 U/L (13-56); Alkaline Phosphatase 115 U/L (45-117); Amylase 25 U/L (25-115); Aspartate Amino Transferase 27 U/L (0-37); Blood Urea Nitrogen 14 MG/DL (7-18); Estimated Glom Filtration Rate 41 ML/MIN; Glucose 93 MG/DL (74-106); Osmolality,Calculated 273.8 MOS/KG (273-304); Total Protein 6.9 G/DL (6.4-8.3); Troponin I < 0.015 NG/ML (0.00-0.045)
[2020-07-16] MEDS ORDERED: POTASSIUM CHLORIDE 20 MEQ TABLET PO STA (07:15)
[2020-07-16] MEDS ORDERED: MAGNESIUM SULF RIDER 4 GM in PREMIX 1 EACH IV STA (07:16)
[2020-07-16] MEDS ORDERED: GLUCAGON 1 MG VIAL IM PRN (08:57)
[2020-07-16] MEDS ORDERED: ONDANSETRON 4 MG/2 ML VIAL IV PRN (08:57)
[2020-07-16] MEDS ORDERED: SIMETHICONE CHEW 125 MG TABLET PO PRN (08:57)
[2020-07-16] MEDS ORDERED: hydrALAZINE 20 MG/1 ML VIAL IV PRN (08:57)
[2020-07-16] MEDS ORDERED: DEXTROSE 50% 25 GM/50 ML VIAL IV PRN (08:57)
[2020-07-16 10:39] LABS: Thyroid Stimulating Hormone 4.58 uIU/ml (0.358-3.74)
[2020-07-16] MEDS: SODIUM CHLOR 0.45% KCL 20 MEQ 20 MEQ/1,000 ML BAG IV SCH ×2 (10:39→19:05)
[2020-07-16] MEDS: ENOXAPARIN 40 MG/0.4 ML SYRINGE SUBCUT SCH (10:42)
[2020-07-16] MEDS: PANTOPRAZOLE 40 MG VIAL IV SCH (10:42)
[2020-07-16 12:04] LABS: Bacteria,Urine Occasional /HPF (Few); Bilirubin,Urine Negative (Negative); Blood, Urine Negative (Negative); Glucose,Urine (UA) Negative (Negative); Hyaline Casts,Urine 44 /LPF (0-3); Ketones,Urine 5 mg/dL (Negative); Mucus,Urine Occasional /LPF (Occasional); Nitrite,Urine Negative (Negative); Protein,Urine 30 MG/DL; RBC,Urine 1 /HPF (0-4); Squamous Epithelial Cell,Urine Occasional /HPF (0-10); Urine Appearance CLEAR (Clear); Urine Color Yellow (Yellow); Urine Specific Gravity 1.015 (1.001-1.035); Urine Urobilinogen < 2.0 EU/DL (0.2-1.0); WBC,Urine 3 /HPF (0-6)
[2020-07-16] MEDS: ACETAMINOPHEN 325 MG TABLET PO PRN (20:06)
[2020-07-17] MEDS: ACETAMINOPHEN 325 MG TABLET PO PRN ×2 (03:11→08:22)
[2020-07-17] MEDS: ENOXAPARIN 40 MG/0.4 ML SYRINGE SUBCUT SCH (08:22)
[2020-07-17] MEDS ORDERED: FOLIC ACID 1 MG TABLET PO SCH (09:00)
[2020-07-17 12:46] LABS: Basophils % 0.1 % (0.0-0.8); Eosinophils # 0.1 10*3/uL (0.0-0.87); Eosinophils % 0.8 % (0.00-10.9); Hematocrit 26.1 VOL% (35.7-47.0); Hemoglobin 9.4 GM/DL (12.0-16.0); Immature Granulocytes % 0.4 %; Immature Granulocytes Absolute 0.03 #; Lymphocytes # 1.3 10*3/uL (1.4-4.0); Lymphocytes % 18.3 % (21.3-54.2); Mean Corpuscular Volume 92.6 FL (87-102); Mean Platelet Volume 10.9 FL (9.6-12.0); Monocytes % 3.1 % (1.7-12.7); Neutrophils % 77.3 % (38.7-73.9); Platelet Count 195 T/CUMM (130-400); Red Blood Count 2.82 MC/CUMM (3.8-5.5); Red Cell Distribution Width 18.7 % (9.3-17.3); White Blood Count 7.3 T/CUMM (4-12)
[2020-07-17] MEDS: PANTOPRAZOLE 40 MG VIAL IV SCH (13:08)
[2020-07-17 13:14] LABS: Calcium 8.1 MG/DL (8.5-10.1); Osmolality,Calculated 279.5 MOS/KG (273-304)
[2020-07-17] MEDS ORDERED: POTASSIUM CHLORIDE 20 MEQ TABLET PO ONE (13:34)
[2020-07-17] MEDS ORDERED: POTASSIUM CHLORIDE 20 MEQ TABLET PO SCH (14:00)
[2020-07-17 16:16] VITALS: BP 139/92
== END 2020-07-17 16:39 | disposition home or self-care (01) ==
LOC: N.EDINP 04:37 → N.ED 04:37 → N.3E 11:21
PROVIDERS: ADMIT Internal Medicine Geriatric Medicine; ATTEND Internal Medicine Geriatric Medicine

== ENCOUNTER 2020-07-19 15:58 | Observation (INO) ==
[2020-07-19 17:18] LABS: Basophils % 0.2 % (0.0-0.8); Eosinophils # 0.1 10*3/uL (0.0-0.87); Eosinophils % 0.6 % (0.00-10.9); Hematocrit 26.3 VOL% (35.7-47.0); Hemoglobin 9.4 GM/DL (12.0-16.0); Immature Granulocytes % 0.6 %; Immature Granulocytes Absolute 0.05 #; Lymphocytes # 1.6 10*3/uL (1.4-4.0); Lymphocytes % 19.2 % (21.3-54.2); Mean Corpuscular HGB Conc 35.7 GM/DL (32-36); Mean Corpuscular Volume 93.3 FL (87-102); Mean Platelet Volume 11.1 FL (9.6-12.0); Monocytes % 4.3 % (1.7-12.7); Neutrophils % 75.1 % (38.7-73.9); Platelet Count 164 T/CUMM (130-400); Red Blood Count 2.82 MC/CUMM (3.8-5.5); Red Cell Distribution Width 19.1 % (9.3-17.3); White Blood Count 8.5 T/CUMM (4-12)
[2020-07-19 17:26] LABS: INR 1.4; PT Patient Result 14.9 SECS (9.8-11.9)
[2020-07-19 17:31] LABS: Barbiturates Screen,Urine Negative (Negative); Benzodiazepines Screen,Urine Negative (Negative); Cannabinoid Screen,Urine Negative (Negative); Opiate Screen,Urine Positive (Negative); Phencyclidine Screen,Urine Negative (Negative)
[2020-07-19 17:32] LABS: Bilirubin,Urine Negative (Negative); Blood, Urine Small mg/dL (Negative); Glucose,Urine (UA) Negative (Negative); Ketones,Urine Negative (Negative); Mucus,Urine Occasional /LPF (Occasional); Nitrite,Urine Negative (Negative); Protein,Urine Negative; RBC,Urine 3 /HPF (0-4); Squamous Epithelial Cell,Urine Occasional /HPF (0-10); Urine Appearance CLEAR (Clear); Urine Color Yellow (Yellow); Urine Specific Gravity 1.015 (1.001-1.035); Urine Urobilinogen < 2.0 EU/DL (0.2-1.0); WBC,Urine 28 /HPF (0-6)
[2020-07-19 17:38] LABS: Albumin 2.7 G/DL (3.4-5.0); Bilirubin,Total 0.9 MG/DL (0.2-1.0); Calcium 8.3 MG/DL (8.5-10.1); Osmolality,Calculated 282.1 MOS/KG (273-304); Total Protein 6.2 G/DL (6.4-8.3)
[2020-07-19] MEDS ORDERED: LORazepam 2 MG/1 ML VIAL IV STA (18:00)
[2020-07-19] MEDS ORDERED: cefTRIAXone 1,000 MG in SODIUM CHLORIDE 0.9% 100 ML IV STA (18:54)
[2020-07-19] MEDS ORDERED: MAGNESIUM SULF RIDER 2 GM in PREMIX 1 EACH IV STA (18:54)
[2020-07-19] MEDS ORDERED: DEXTROSE 50% 25 GM/50 ML VIAL IV PRN (19:06)
[2020-07-19] MEDS ORDERED: ONDANSETRON 4 MG/2 ML VIAL IV PRN (19:06)
[2020-07-19] MEDS ORDERED: GLUCAGON 1 MG VIAL IM PRN (19:06)
[2020-07-19] MEDS ORDERED: DIPHENOXYLATE/ATROPINE 2.5-0.025 MG TABLET PO PRN (19:12)
[2020-07-19 19:27] LABS: ABG Base Excess -9.2 MMOL/L (-2.5-2.5); ABG Oxygen Saturation 98.3 % (95-100); ABG PCO2 26.5 MM HG (35-48); ABG PH 7.364 (7.35-7.45); ABG TCO2 13.9 MMOL/L (23-27); Allen Test Positive; Pt O2 Delivery Device Room Air
[2020-07-19] MEDS ORDERED: rOPINIRole 0.25 MG TABLET PO SCH (21:00)
[2020-07-19] MEDS: FERROUS SULFATE 325 MG TABLET PO SCH (22:50)
[2020-07-19] MEDS: MAGNESIUM CHLORIDE 64 MG TABLET PO SCH (22:50)
[2020-07-19] MEDS: COLESTIPOL 1 GM TABLET PO SCH (22:50)
[2020-07-19] MEDS: POTASSIUM CHLORIDE 20 MEQ/15 ML UDCUP PO SCH (22:51)
[2020-07-19] MEDS: FUROSEMIDE 40 MG TABLET PO SCH (22:51)
[2020-07-19] MEDS: POLYETHYLENE GLYCOL POWDER 17 GM PACK PO SCH (22:52)
[2020-07-19] MEDS: SODIUM BICARB INJ 50 MEQ in SODIUM CHLORIDE 0.45% 1,000 ML IV SCH (22:52)
[2020-07-19] MEDS: ZALEPLON 5 MG CAPSULE PO PRN (23:38)
[2020-07-20 05:48] LABS: Basophils % 0.4 % (0.0-0.8); Eosinophils # 0.1 10*3/uL (0.0-0.87); Eosinophils % 0.8 % (0.00-10.9); Hematocrit 24.8 VOL% (35.7-47.0); Hemoglobin 8.8 GM/DL (12.0-16.0); Immature Granulocytes % 0.5 %; Immature Granulocytes Absolute 0.04 #; Lymphocytes # 1.6 10*3/uL (1.4-4.0); Lymphocytes % 20.5 % (21.3-54.2); Mean Corpuscular HGB Conc 35.5 GM/DL (32-36); Mean Corpuscular Volume 93.6 FL (87-102); Mean Platelet Volume 10.9 FL (9.6-12.0); Monocytes % 4.8 % (1.7-12.7); Platelet Count 186 T/CUMM (130-400); Red Blood Count 2.65 MC/CUMM (3.8-5.5); Red Cell Distribution Width 19.2 % (9.3-17.3); White Blood Count 7.7 T/CUMM (4-12)
[2020-07-20 06:13] LABS: Albumin 2.6 G/DL (3.4-5.0); Bilirubin,Total 0.8 MG/DL (0.2-1.0); Calcium 8.4 MG/DL (8.5-10.1); Osmolality,Calculated 279.3 MOS/KG (273-304)
[2020-07-20] MEDS: LEVOTHYROXINE 75 MCG TABLET PO SCH (06:54)
[2020-07-20] MEDS: POLYETHYLENE GLYCOL POWDER 17 GM PACK PO SCH ×4 (08:34→21:46)
[2020-07-20] MEDS: RIVAROXABAN 15 MG TABLET PO SCH (08:35)
[2020-07-20] MEDS: MAGNESIUM CHLORIDE 64 MG TABLET PO SCH ×2 (08:35→21:49)
[2020-07-20] MEDS: allopurinoL 100 MG TABLET PO SCH (08:35)
[2020-07-20] MEDS: FOLIC ACID 1 MG TABLET PO SCH (08:35)
[2020-07-20] MEDS: CALCIUM (CARBONATE) 500 MG TABLET PO SCH (08:35)
[2020-07-20] MEDS: POTASSIUM CHLORIDE 20 MEQ/15 ML UDCUP PO SCH ×3 (08:35→21:48)
[2020-07-20] MEDS: FERROUS SULFATE 325 MG TABLET PO SCH ×2 (08:35→21:48)
[2020-07-20] MEDS: COLESTIPOL 1 GM TABLET PO SCH ×2 (08:35→21:49)
[2020-07-20] MEDS: ACETAMINOPHEN 325 MG TABLET PO PRN ×2 (08:35→21:46)
[2020-07-20] MEDS: FUROSEMIDE 40 MG TABLET PO SCH ×2 (08:47→21:48)
[2020-07-20] MEDS ORDERED: PANTOPRAZOLE 40 MG TABLET PO SCH (09:00)
[2020-07-20] MEDS: rOPINIRole 0.25 MG TABLET PO SCH ×3 (09:46→21:49)
[2020-07-20] MEDS: SODIUM BICARB INJ 50 MEQ in SODIUM CHLORIDE 0.45% 1,000 ML IV SCH (14:43)
[2020-07-20] MEDS ORDERED: cefTRIAXone 1,000 MG in SYRINGE 1 EACH IV SCH (18:00)
[2020-07-20] MEDS: ZALEPLON 5 MG CAPSULE PO PRN (21:47)
[2020-07-20] MEDS: PANTOPRAZOLE 40 MG TABLET PO SCH (21:48)
[2020-07-21] MEDS: LEVOTHYROXINE 75 MCG TABLET PO SCH (05:58)
[2020-07-21 06:48] LABS: Basophils % 0.3 % (0.0-0.8); Eosinophils # 0.1 10*3/uL (0.0-0.87); Eosinophils % 0.7 % (0.00-10.9); Hematocrit 23.7 VOL% (35.7-47.0); Hemoglobin 8.4 GM/DL (12.0-16.0); Immature Granulocytes % 0.3 %; Immature Granulocytes Absolute 0.02 #; Lymphocytes # 1.5 10*3/uL (1.4-4.0); Lymphocytes % 22.4 % (21.3-54.2); Mean Corpuscular HGB Conc 35.4 GM/DL (32-36); Mean Corpuscular Volume 93.3 FL (87-102); Mean Platelet Volume 10.8 FL (9.6-12.0); Monocytes % 6.7 % (1.7-12.7); NRBC # 0.02 10*3/uL; Neutrophils % 69.6 % (38.7-73.9); Platelet Count 187 T/CUMM (130-400); Red Blood Count 2.54 MC/CUMM (3.8-5.5); Red Cell Distribution Width 19.2 % (9.3-17.3); White Blood Count 6.7 T/CUMM (4-12)
[2020-07-21 07:02] LABS: Calcium 8.2 MG/DL (8.5-10.1); Osmolality,Calculated 279.3 MOS/KG (273-304)
[2020-07-21] MEDS ORDERED: MAGNESIUM SULF RIDER 2 GM in PREMIX 1 EACH IV ONE (10:00)
[2020-07-21] MEDS: ACETAMINOPHEN 325 MG TABLET PO PRN ×2 (12:40→18:30)
[2020-07-21] MEDS: POLYETHYLENE GLYCOL POWDER 17 GM PACK PO SCH ×3 (12:41→20:42)
[2020-07-21] MEDS: COLESTIPOL 1 GM TABLET PO SCH ×2 (12:41→20:42)
[2020-07-21] MEDS: POTASSIUM CHLORIDE 20 MEQ/15 ML UDCUP PO SCH ×3 (12:41→20:43)
[2020-07-21] MEDS: PANTOPRAZOLE 40 MG TABLET PO SCH ×2 (12:41→20:43)
[2020-07-21] MEDS: FERROUS SULFATE 325 MG TABLET PO SCH ×2 (12:41→20:43)
[2020-07-21] MEDS: FOLIC ACID 1 MG TABLET PO SCH (12:41)
[2020-07-21] MEDS: FUROSEMIDE 40 MG TABLET PO SCH ×2 (12:41→20:42)
[2020-07-21] MEDS: MAGNESIUM CHLORIDE 64 MG TABLET PO SCH ×2 (12:42→20:43)
[2020-07-21] MEDS: CALCIUM (CARBONATE) 500 MG TABLET PO SCH (12:42)
[2020-07-21] MEDS: allopurinoL 100 MG TABLET PO SCH (12:42)
[2020-07-21] MEDS: RIVAROXABAN 15 MG TABLET PO SCH (12:42)
[2020-07-21] MEDS: rOPINIRole 0.25 MG TABLET PO SCH ×3 (12:42→20:43)
[2020-07-21] MEDS ORDERED: MEROPENEM 500 MG in SODIUM CHLORIDE 0.9% 100 ML IV SCH (16:00)
[2020-07-21] MEDS ORDERED: ERTAPENEM 1,000 MG in SODIUM CHLORIDE 0.9% 100 ML IV SCH (18:00)
[2020-07-21] MEDS: SODIUM BICARB INJ 50 MEQ in SODIUM CHLORIDE 0.45% 1,000 ML IV SCH (19:51)
[2020-07-21] MEDS: ZALEPLON 5 MG CAPSULE PO PRN (20:42)
[2020-07-21] MEDS ORDERED: CIPROFLOXACIN 500 MG TABLET PO SCH (21:00)
[2020-07-22] MEDS: LEVOTHYROXINE 75 MCG TABLET PO SCH (05:22)
[2020-07-22 06:53] LABS: Calcium 8.4 MG/DL (8.5-10.1); Osmolality,Calculated 271.8 MOS/KG (273-304)
[2020-07-22] MEDS: ACETAMINOPHEN 325 MG TABLET PO PRN (08:38)
[2020-07-22 11:39] VITALS: BP 136/86
[2020-07-22] MEDS: POTASSIUM CHLORIDE 20 MEQ/15 ML UDCUP PO SCH (12:21)
[2020-07-22] MEDS: FOLIC ACID 1 MG TABLET PO SCH (12:21)
[2020-07-22] MEDS: CALCIUM (CARBONATE) 500 MG TABLET PO SCH (12:21)
[2020-07-22] MEDS: allopurinoL 100 MG TABLET PO SCH (12:21)
[2020-07-22] MEDS: MAGNESIUM CHLORIDE 64 MG TABLET PO SCH (12:21)
[2020-07-22] MEDS: rOPINIRole 0.25 MG TABLET PO SCH (12:21)
[2020-07-22] MEDS: POLYETHYLENE GLYCOL POWDER 17 GM PACK PO SCH (12:22)
[2020-07-22] MEDS: FERROUS SULFATE 325 MG TABLET PO SCH (12:22)
[2020-07-22] MEDS: COLESTIPOL 1 GM TABLET PO SCH (12:22)
[2020-07-22] MEDS: FUROSEMIDE 40 MG TABLET PO SCH (12:22)
[2020-07-22] MEDS: PANTOPRAZOLE 40 MG TABLET PO SCH (12:22)
[2020-07-22] MEDS: RIVAROXABAN 15 MG TABLET PO SCH (12:23)
== END 2020-07-22 18:46 | disposition home health service (06) ==
LOC: EDUNIT# → EDBD → N.ED 15:58 → N.EDINP 15:58 → SUATTDRO 19:06 → N.3E 21:13
PROVIDERS: ADMIT Internal Medicine; ATTEND Internal Medicine